=== PATIENT | female | born 1965 | race Caucasian/White ===

== ENCOUNTER 2020-06-10 10:35 | Emergency (ER) | payer SELFPAY ==
[2020-06-10 11:12] VITALS: BP 160/118
--- NOTE | 2020-06-10 11:22 | ER Document Report ---
ED Oral Problem - General Chief Complaint: Toothache Stated Complaint: TOOTH PAIN Time Seen by Provider: 06/10/20 11:14 Primary Care Provider: DERIC LOPEZ MD [Primary Care Provider] - Follow up as needed Information source: Patient TRAVEL OUTSIDE OF THE [place] IN LAST 30 DAYS: No - HPI Patient complains to provider of: Toothache - This 55-year-old female presented to the emergency room with a tooth ache fractured molar which is been ongoing for about 2 weeks. - Related Data Allergies/Adverse Reactions: No Known Allergies Allergy (Unverified 06/10/20 11:17) Past Medical History - General Information source: Patient - Social History Smoking Status: Never Smoker Chew tobacco use (# tins/day): No Frequency of alcohol use: None Drug Abuse: None Family History: None Patient has homicidal ideation: No Pulmonary Medical History: Reports: Hx COPD Neurological Medical History: Reports: Hx Seizures Past Surgical History: Reports: Hx Cholecystectomy, Hx Orthopedic Surgery Review of Systems - Review of Systems Constitutional: No symptoms reported EENT: No symptoms reported Cardiovascular: No symptoms reported Respiratory: No symptoms reported Gastrointestinal: No symptoms reported Genitourinary: No symptoms reported Female Genitourinary: No symptoms reported Musculoskeletal: No symptoms reported Skin: No symptoms reported Hematologic/Lymphatic: No symptoms reported Neurological/Psychological: No symptoms reported Physical Exam - Vital signs Vitals: Temp Pulse Resp BP Pulse Ox 98.5 F 70 18 160/118 H 97 06/10/20 11:10 06/10/20 11:10 06/10/20 11:10 06/10/20 11:10 06/10/20 11:10 Interpretation: Normal - General General appearance: Appears well, Alert - HEENT Head: Normocephalic, Atraumatic Eyes: Normal Pupils: PERRL Mucous membranes: Normal Notes: Patient has severe dentalgia throughout the oral cavity and fractured molar to the upper right side. - Respiratory Respiratory status: No respiratory distress Chest status: Nontender Breath sounds: Normal Chest palpation: Normal - Cardiovascular Rhythm: Regular Heart sounds: Normal auscultation Murmur: No - Abdominal Inspection: Normal Distension: No distension Bowel sounds: Normal Tenderness: Nontender Organomegaly: No organomegaly - Back Back: Normal, Nontender - Extremities General upper extremity: Normal inspection, Nontender, Normal color, Normal ROM, Normal temperature General lower extremity: Normal inspection, Nontender, Normal color, Normal ROM, Normal temperature, Normal weight bearing. No: Min's sign - Neurological Neuro grossly intact: Yes Cognition: Normal Orientation: AAOx4 Sophia Coma Scale Eye Opening: Spontaneous Sophia Coma Scale Verbal: Oriented Sophia Coma Scale Motor: Obeys Commands [place] Coma Scale Total: 15 Speech: Normal Motor strength normal: LUE, RUE, LLE, RLE Sensory: Normal - Psychological Associated symptoms: Normal affect, Normal mood - Skin Skin Temperature: Warm Skin Moisture: Dry Skin Color: Normal Course - Re-evaluation Re-evalutation: 06/10/20 11:21 No trismus no oral floor induration no difficulty swallowing breathing or talking. - Vital Signs Vital signs: Temp Pulse Resp BP Pulse Ox 98.5 F 70 18 160/118 H 97 06/10/20 11:10 06/10/20 11:10 06/10/20 11:10 06/10/20 11:10 06/10/20 11:10 Discharge - Discharge Clinical Impression: Toothache Condition: Good Disposition: HOME, SELF-CARE Instructions: Toothache ([facility]), Penicillin V K ([facility]) Prescriptions: Ibuprofen [Motrin 600 Mg Tablet] 600 mg PO TID #15 tablet Penicillin V Potassium [Penicillin Vk 500 mg Tablet] 500 mg PO BID #20 tablet Referrals: DERIC LOPEZ MD [Primary Care Provider] - Follow up as needed
== END 2020-06-10 11:38 | disposition home or self-care (01) ==
LOC: ER 10:35
DX: K08.9 Disorder of teeth and supporting structures, unspecified (principal); J44.9 Chronic obstructive pulmonary disease, unspecified; Z90.49 Acquired absence of other specified parts of digestive tract
CPT/HCPCS: 99282

== ENCOUNTER 2020-07-22 13:10 | Emergency (ER) | payer SELFPAY ==
[2020-07-22] MEDS ORDERED: HYDROCODONE/ACETAMINOPHEN 5-325 MG TABLET PO ONE (14:35)
--- NOTE | 2020-07-22 15:50 | RADIOLOGY REPORT (SQ) ---
EXAM DESCRIPTION: FOOT LEFT COMPLETE IMAGES COMPLETED DATE/TIME: 07/22/2020 3:40 pm REASON FOR STUDY: injury COMPARISON: None. NUMBER OF VIEWS: Three views. TECHNIQUE: AP, lateral and oblique radiographic images acquired of the left foot. LIMITATIONS: None. FINDINGS: MINERALIZATION: Normal. BONES: Cortical irregularity at the distal aspect of the 2nd and 3rd metatarsals without significant angulation or displacement. No additional fractures identified. No suspicious osseous lesions. JOINTS: No effusions. SOFT TISSUES: No radiopaque foreign body. Mild forefoot soft tissue swelling. OTHER: No other significant finding. IMPRESSION: Cortical irregularity at the distal aspect of the 2nd and 3rd metatarsals compatible wit h fracture. No significant angulation or displacement. TECHNICAL DOCUMENTATION: JOB ID: [id number] 2010 [employer]- All Rights Reserved Reading location - IP/workstation name: [email or web address]
--- NOTE | 2020-07-22 16:09 | ER Document Report ---
HPI - HPI Patient complains to provider of: left foot injury Time Seen by Provider: 07/22/20 14:30 Pain Level: 4 Context: 55-year-old female presents emergency room complaining of left second and third toe pain. Patient states she tripped and fell over a rug injuring her second and third toes earlier today. Did not take any medications for her symptoms. Came in by EMS. Past medical history significant for epilepsy, neuropathy, and COPD. She denies falling and hitting her head. No loss of consciousness. States has been unable to walk secondary to the pain. Associated Symptoms: None Exacerbated by: Movement, Walking Relieved by: Denies Similar symptoms previously: No Recently seen / treated by doctor: No - ROS Systems Reviewed and Negative: Yes All other systems reviewed and negative - NEURO Neurology: DENIES: Weakness - MUSCULOSKELETAL Musculoskeletal: REPORTS: Extremity pain Past Medical History - General Information source: Patient - Social History Smoking Status: Never Smoker Chew tobacco use (# tins/day): No Frequency of alcohol use: None Drug Abuse: None Family History: None Patient has homicidal ideation: No Pulmonary Medical History: Reports: Hx COPD Neurological Medical History: Reports: Hx Seizures Past Surgical History: Reports: Hx Cholecystectomy, Hx Orthopedic Surgery Vertical Provider Document - CONSTITUTIONAL Agree With Documented VS: Yes Exam Limitations: No Limitations General Appearance: Moderate Distress - INFECTION CONTROL TRAVEL OUTSIDE OF THE [place] IN LAST 30 DAYS: No - HEENT HEENT: Atraumatic, Normocephalic - NECK Neck: Normal Inspection, Supple, Thyroid Normal - RESPIRATORY Respiratory: Breath Sounds Normal, No Respiratory Distress, Chest Non-Tender - CARDIOVASCULAR Cardiovascular: Regular Rate, Regular Rhythm, No Murmur - MUSCULOSKELETAL/EXTREMETIES Musculoskeletal/Extremeties: Tender - There is tenderness on palpation to the left second and third toes at the distal aspect. There is no obvious deformity noted. There is no ecchymosis noted. Mild swelling noted. - NEURO Level of Consciousness: Awake, Alert, Appropriate Motor/Sensory: No Motor Deficit, No Sensory Deficit Notes: Positive left pedal pulse. Capillary refill less than 3 seconds. - DERM Integumentary: Warm, Dry, No Rash Course - Re-evaluation Re-evalutation: 07/22/20 16:08 Patient is resting comfortably with decreased pain. Reviewed x-ray results with patient. Aware fractures of the distal aspect of both the second and third metatarsals. No dislocation. Patient was counseled to take medications as prescribed. Outpatient follow-up with orthopedics as discussed. On-call physician was provided. [facility] records were reviewed okay for prescription. Left second and third toes were john taped. Patient was given strict return to the emergency room guidelines. Return for any new or worsening symptoms. All questions were answered. Patient verbalized understanding and agrees with plan of care. 07/22/20 16:54 - Vital Signs Vital signs: Temp Pulse Resp BP Pulse Ox 97.9 F 78 16 142/97 H 97 07/22/20 14:20 07/22/20 13:31 07/22/20 13:31 07/22/20 13:31 07/22/20 13:31 - Diagnostic Test Radiology reviewed: Reports reviewed Procedures - Immobilization Left Toe 3rd digit Time completed: 16:32 Pre-Proc Neuro Vasc Exam: Normal Immobilizer type: Post-op shoe, Other - John tape, Performed by: RN Post-Proc Neuro Vasc Exam: Normal Alignment checked and good: Yes Discharge - Discharge Clinical Impression: Fracture of second metatarsal bone of left foot Qualifiers: Encounter type: initial encounter Fracture type: closed Fracture alignment: nondisplaced Qualified Code(s): S92.325A - Nondisplaced fracture of second metatarsal bone, left foot, initial encounter for closed fracture Fracture of third metatarsal bone of left foot Qualifiers: Encounter type: initial encounter Fracture type: closed Fracture alignment: nondisplaced Qualified Code(s): S92.335A - Nondisplaced fracture of third metatarsal bone, left foot, initial encounter for closed fracture Condition: Stable Disposition: HOME, SELF-CARE Instructions: John Taping (toes) ([facility]), Fractured Toe ([facility]) Additional Instructions: Rest, ice, elevate when we get a car Prescriptions: Hydrocodone/Acetaminophen [[place] 5-325 mg Tablet] 1 tab PO Q6HP PRN #12 tablet PRN Reason: For Pain Forms: Return to Work
[2020-07-22 16:36] VITALS: BP 136/86
== END 2020-07-22 16:36 | disposition home or self-care (01) ==
LOC: ER 13:10
DX: S92.325A Nondisplaced fracture of second metatarsal bone, left foot, initial encounter for closed fracture (principal); S92.335A Nondisplaced fracture of third metatarsal bone, left foot, initial encounter for closed fracture; W01.0XXA Fall on same level from slipping, tripping and stumbling without subsequent striking against object, initial encounter; J44.9 Chronic obstructive pulmonary disease, unspecified
CPT/HCPCS: 99283

== ENCOUNTER 2020-08-02 13:45 | Emergency (ER) | payer OTHER ==
[2020-08-02] MEDS ORDERED: DEXAMETHASONE SOD PHOS INJ 10 MG/1 ML VIAL IM ONE (15:49)
[2020-08-02] MEDS ORDERED: KETOROLAC TROMETHAMINE 60 MG/2 ML SDV IM ONE (15:49)
--- NOTE | 2020-08-02 15:56 | ER Document Report ---
HPI - HPI Time Seen by Provider: 08/02/20 15:45 Pain Level: 4 Context: Patient is a 55-year-old female who presents to the emergency department with a chief complaint of right shoulder pain. Patient states that she was vacuuming today and when she went to go vacuum she felt her shoulder pop out of her socket. Patient has had history of shoulder surgery before. She has been having problems with her shoulder for years. She does not feel her shoulder is out of place, but states that it hurts. She has not taken anything for the pain. Patient has a history of hypertension, seizures, asthma, and COPD. Patient is right handed. - ROS Systems Reviewed and Negative: Yes All other systems reviewed and negative - CONSTITUTIONAL Constitutional: DENIES: Fever, Chills - EENT EENT: DENIES: Sore Throat, Ear Pain - MUSCULOSKELETAL Musculoskeletal: REPORTS: Extremity pain - Right shoulder. DENIES: Neck Pain, Swelling - DERM Skin Color: Normal Skin Problems: None Past Medical History - General Information source: Patient - Social History Smoking Status: Never Smoker Chew tobacco use (# tins/day): No Frequency of alcohol use: None Drug Abuse: None Family History: None Pulmonary Medical History: Reports: Hx COPD Neurological Medical History: Reports: Hx Seizures Past Surgical History: Reports: Hx Cholecystectomy, Hx Orthopedic Surgery Vertical Provider Document - CONSTITUTIONAL Agree With Documented VS: Yes Exam Limitations: No Limitations General Appearance: No Apparent Distress - INFECTION CONTROL TRAVEL OUTSIDE OF THE [place] IN LAST 30 DAYS: No - HEENT HEENT: Atraumatic, Normocephalic, PERRLA - NECK Neck: Normal Inspection - RESPIRATORY Respiratory: Breath Sounds Normal, No Respiratory Distress - CARDIOVASCULAR Cardiovascular: Regular Rate, Regular Rhythm Pulses: Normal: Radial - MUSCULOSKELETAL/EXTREMETIES Musculoskeletal/Extremeties: Tender - right shoulder., No Edema. negative: FROM - decreased ROM to R shoulder - NEURO Level of Consciousness: Awake, Alert, Appropriate Motor/Sensory: No Sensory Deficit - DERM Integumentary: Warm, Dry, No Rash Course - Re-evaluation Re-evalutation: 08/02/20 16:43 Shoulder x-ray shows a stable prosthetic. Capillary refill less than 3 seconds. Radial pulse 2+. No vascular compromise noted. Will place the patient on diclofenac. She will follow-up with orthopedics. Follow-up precautions were given. Verbal discharge instructions were given to the patient. They verbalized understanding. They are stable for discharge. - Vital Signs Vital signs: Temp Pulse Resp BP Pulse Ox 98.0 F 58 L 20 154/104 H 98 08/02/20 15:46 08/02/20 15:06 08/02/20 15:06 08/02/20 15:06 08/02/20 15:06 Procedures - Immobilization Right Shoulder Pre-Proc Neuro Vasc Exam: Normal Immobilizer type: Sling Performed by: RN Post-Proc Neuro Vasc Exam: Normal, Unchanged from pre-exam Alignment checked and good: Yes Discharge - Discharge Clinical Impression: Right shoulder pain Qualifiers: Chronicity: acute Qualified Code(s): M25.511 - Pain in right shoulder Condition: Stable Disposition: HOME, SELF-CARE Additional Instructions: You were seen today in the emergency department for shoulder pain. Your x-ray appeared normal. Your joint is in place. Please use a sling. Please rest and apply ice as much as possible. Take diclofenac as needed for pain relief. Follow-up with orthopedics in regards to this visit. Prescriptions: Diclofenac Sodium [Diclofenac Sodium ER] 100 mg PO DAILY #12 tab.er.24h Referrals: KELVIN RAPHAEL MD [ACTIVE STAFF] - Follow up in 1 week CAL KIM JR, DO [ACTIVE PROVISIONAL STAFF] - Follow up in 1 week GISSELLE GAMINO MD [ACTIVE STAFF] - Follow up in 1 week
--- NOTE | 2020-08-02 16:23 | RADIOLOGY REPORT (SQ) ---
EXAM DESCRIPTION: SHOULDER RIGHT 2 OR MORE VIEWS IMAGES COMPLETED DATE/TIME: 08/02/2020 4:12 pm REASON FOR STUDY: right shoulder pain COMPARISON: None. NUMBER OF VIEWS: Three views. TECHNIQUE: Internal rotation, external rotation, and Y view images acquired of the right shoulder. LIMITATIONS: None. FINDINGS: MINERALIZATION: Normal. BONES: Intact shoulder prosthesis. No acute fracture. No worrisome bone lesions. JOINTS: No dislocation. VISUALIZED LUNGS AND RIBS: No pneumothorax. No rib fracture. SOFT TISSUES: No radiopaque foreign body. OTHER: No other significant finding. IMPRESSION: INTACT SHOULDER PROSTHESIS. NO ACUTE OR OTHER SIGNIFICANT FINDINGS. TECHNICAL DOCUMENTATION: JOB ID: [id number] 2010 [employer]- All Rights Reserved Reading location - IP/workstation name: [email or web address]
[2020-08-02 16:55] VITALS: BP 173/103
== END 2020-08-02 16:53 | disposition home or self-care (01) ==
LOC: ER 13:45
DX: M25.511 Pain in right shoulder (principal); I10 Essential (primary) hypertension; J44.9 Chronic obstructive pulmonary disease, unspecified; Z96.611 Presence of right artificial shoulder joint
CPT/HCPCS: 99284; 96372; 82962; 73030; J1885; J1100

== ENCOUNTER 2020-08-11 08:25 | Emergency (ER) | payer OTHER ==
[2020-08-11 08:31] VITALS: BP 143/97
[2020-08-11] MEDS ORDERED: LORAZEPAM 1 MG TABLET PO ONE (08:58)
--- NOTE | 2020-08-11 09:00 | ER Document Report ---
ED General - General Chief Complaint: Seizure Stated Complaint: SEIZURES Time Seen by Provider: 08/11/20 08:43 Primary Care Provider: NIECY DONAHUE NP [Primary Care Provider] - Follow up as needed Notes: 55 lady with hypertension neck arthritis neuropathy and seizure disorder for multiple TBI's presents with increasing seizure frequency. Not had one today. Her a month ago she moved from [place] has been to [facility] once is not on her Keppra or Dilantin anymore stopped her BP meds and gabapentin. She has been seen in the primary care clinic and they called her in [facility] last night after she called to say that her seizures are increasing in frequency2 yesterday, 2 the day before. She took 1 dose and came here. She denies chest pain. She does complain of arm tingling similar to past neuropathy since being off gabapentin. TRAVEL OUTSIDE OF THE [place] IN LAST 30 DAYS: No - Related Data Allergies/Adverse Reactions: No Known Allergies Allergy (Verified 08/11/20 08:45) Past Medical History - General Information source: Patient - Social History Smoking Status: Unknown if Ever Smoked Family History: None Pulmonary Medical History: Reports: Hx COPD Neurological Medical History: Reports: Hx Seizures Past Surgical History: Reports: Hx Cholecystectomy, Hx Orthopedic Surgery Review of Systems - Review of Systems Notes: REVIEW OF SYSTEMS GEN: Denies fever, chills, weight loss ENT: Denies sore throat, nasal discharge, ear pain EYES: Denies blurry vision, eye pain, discharge CV: Denies chest pain, palpitations, edema RESP: Denies cough, shortness of breath, wheezing GI: Denies abdominal pain, nausea, vomiting, diarrhea MSK: Denies joint pain/swelling, edema, SKIN: Denies rash, skin lesions LYMPH: Denies swollen glands/lymph nodes NEURO: Seizure tingling PSYCH: Denies depression, suicidal or homicidal ideation PHYSICAL EXAMINATION General: No acute distress, well-nourished Head: Atraumatic, normocephalic ENT: Mouth normal, oropharynx moist, no exudates or tonsillar enlargement Eyes: Conjunctiva normal, pupils equal, lids normal Neck: No JVD, supple, no guarding CVS: Normal rate, regular rhythm, no murmurs Resp: No resp distress, equal and normal breath sounds bilaterally GI: Nondistended, soft, no tenderness to palpation, no rebound or guarding Ext: No deformities, no edema, normal range of motion in upper and lower ext Back: No CVA or midline TTP Skin: No rash, warm Lymphatic: No lymphadeopathy noted Neuro: Awake, alert. Face symmetric. GCS 15. Physical Exam - Vital signs Vitals: Temp Pulse Resp BP Pulse Ox 98.0 F 65 18 143/97 H 95 08/11/20 08:30 08/11/20 08:30 08/11/20 08:30 08/11/20 08:30 08/11/20 08:30 Course - Re-evaluation Re-evalutation: 08/11/20 09:14 Breakthrough seizure in the setting of noncompliance. Mild hypertension not severe. Bilateral hand tingling secondary to neuropathy off gabapentin. Doubt acute issue, need for labs imaging etc. We will refill all meds give Ativan here so she wants these and have her follow- up with primary care. I have discussed with the patient there likely diagnosis, aftercare plan, fol low-up plans and my usual and customary return precautions. They verbalized understanding of this. - Vital Signs Vital signs: Temp Pulse Resp BP Pulse Ox 98.0 F 65 18 143/97 H 95 08/11/20 08:30 08/11/20 08:30 08/11/20 08:30 08/11/20 08:30 08/11/20 08:30 Discharge - Discharge Clinical Impression: Breakthrough seizure Condition: Good Disposition: HOME, SELF-CARE Instructions: Seizure, Known Epileptic ([facility]) Prescriptions: Gabapentin 300 mg PO TID #90 capsule Levetiracetam [Keppra] 1,000 mg PO BID #60 tablet Lisinopril 20 mg PO DAILY #30 tablet Referrals: NIECY DONAHUE NP [Primary Care Provider] - Follow up as needed
== END 2020-08-11 09:28 | disposition home or self-care (01) ==
LOC: ER 08:25
DX: G40.909 Epilepsy, unspecified, not intractable, without status epilepticus (principal); J44.9 Chronic obstructive pulmonary disease, unspecified; I10 Essential (primary) hypertension; Z87.820 Personal history of traumatic brain injury; Z90.49 Acquired absence of other specified parts of digestive tract; Z91.14 Patient's other noncompliance with medication regimen
CPT/HCPCS: 99283

== ENCOUNTER 2020-08-15 06:33 | Emergency (ER) | payer OTHER ==
[2020-08-15] MEDS ORDERED: NORMAL SALINE 500 ML IV ONE (09:10)
[2020-08-15] MEDS ORDERED: LEVETIRACETAM 1000 MG/NACL-ISO 1,000 MG/100 ML RTUPB IV ONE (09:11)
[2020-08-15] MEDS ORDERED: LORAZEPAM INJ 2 MG/1 ML VIAL IV ONE (09:12)
[2020-08-15 09:43] LABS: HEMATOCRIT 40.8 % (36.0-47.0); MEAN CORPUSCULAR HEMOGLOBIN 29.5 pg (27.0-33.4); MEAN CORPUSCULAR HGB CONC 34.3 g/dL (32.0-36.0); MEAN CORPUSCULAR VOLUME 86 fl (80-97); RED BLOOD COUNT 4.74 10^6/uL (3.72-5.28); RED CELL DISTRIBUTION WIDTH 13.1 % (11.5-14.0); WHITE BLOOD COUNT 8.6 10^3/uL (4.0-10.5)
[2020-08-15 09:51] LABS: ALBUMIN 4.1 g/dL (3.5-5.0); ALKALINE PHOSPHATASE 85 U/L (38-126); ANION GAP 8 (5-19); ASPARTATE AMINO TRANSFERASE 25 U/L (14-36); BILIRUBIN,DIRECT 0.4 mg/dL (0.0-0.4); BILIRUBIN,TOTAL 0.8 mg/dL (0.2-1.3); BLOOD UREA NITROGEN 13 mg/dL (7-20); CALCIUM 9.6 mg/dL (8.4-10.2); CARBON DIOXIDE 27 mmol/L (22-30); CHLORIDE 104 mmol/L (98-107); CREATINE KINASE 51 U/L (30-135); GLUCOSE 98 mg/dL (75-110); POTASSIUM 4.7 mmol/L (3.6-5.0); TOTAL PROTEIN 6.7 g/dL (6.3-8.2)
[2020-08-15 10:13] LABS: ABSOLUTE LYMPHOCYTES# (MANUAL) 3.5 10^3/uL (0.5-4.7); ABSOLUTE MONOCYTES # (MANUAL) 0.7 10^3/uL (0.1-1.4); BASOPHILS % (MANUAL) 1 % (0-2); EOSINOPHILS % (MANUAL) 3 % (0-6); LYMPHOCYTES % (MANUAL) 37 % (13-45); MONOCYTES % (MANUAL) 8 % (3-13); SEGMENTED NEUTROPHILS % (MAN) 47 % (42-78); TOTAL CELLS COUNTED 100
[2020-08-15 10:14] LABS: PLATELET CLUMPS PRESENT; PLATELET COMMENT ADEQUATE
[2020-08-15 10:16] LABS: RBC MORPHOLOGY COMMENT NORMO-CYTIC/CHROMIC
[2020-08-15 10:17] LABS: PLATELET COUNT 268 10^3/uL (150-450)
--- NOTE | 2020-08-15 10:42 | RADIOLOGY REPORT (SQ) ---
EXAM DESCRIPTION: CT HEAD WITHOUT IMAGES COMPLETED DATE/TIME: 08/15/2020 10:13 am REASON FOR STUDY: seizure COMPARISON: None. TECHNIQUE: Axial images acquired through the brain without intravenous contrast. Images reviewed wi th bone, brain and subdural windows. Additional sagittal and coronal reconstructions were generated. Images stored on PACS. All CT scanners at this facility use dose modulation, iterative reconstruction, and/or weight based d osing when appropriate to reduce radiation dose to as low as reasonably achievable (ALARA). [facility]: Dose Right [facility]: CareDose [facility]: Dose Right [facility]: Teradose 4D [facility]: ArthaYantra RADIATION DOSE: CT Rad equipment meets quality standard of care and radiation dose reduction techniq ues were employed. CTDIvol: 53.2 mGy. DLP: 1017 mGy-cm. mGy. LIMITATIONS: None. FINDINGS: VENTRICLES: Normal size and contour. CEREBRUM: No masses. No hemorrhage. No midline shift. No evidence for acute infarction. Normal gra y/white matter differentiation. No areas of low density in the white matter. CEREBELLUM: No masses. No hemorrhage. No alteration of density. No evidence for acute infarction. EXTRAAXIAL SPACES: No fluid collections. No masses. ORBITS AND GLOBE: No intra- or extraconal masses. Normal contour of globe without masses. CALVARIUM: No fracture. PARANASAL SINUSES: No fluid or mucosal thickening. SOFT TISSUES: No mass or hematoma. OTHER: No other significant finding. IMPRESSION: NO ACUTE INTRACRANIAL IMAGING FINDINGS. EVIDENCE OF ACUTE STROKE: NO. COMMENT: Quality ID # [id number]: Final reports with documentation of one or more dose reduction techniques (e.g., Automated exposure control, adjustment of the mA and/or kV according to patient size, use of iterative reconstruction technique) TECHNICAL DOCUMENTATION: JOB ID: [id number] 2010 [email or web address]- All Rights Reserved Reading location - IP/workstation name: [email or web address]
--- NOTE | 2020-08-15 10:43 | RADIOLOGY REPORT (SQ) ---
EXAM DESCRIPTION: CHEST SINGLE VIEW IMAGES COMPLETED DATE/TIME: 08/15/2020 10:33 am REASON FOR STUDY: seizure COMPARISON: None. EXAM PARAMETERS: NUMBER OF VIEWS: One view. TECHNIQUE: Single frontal radiographic view of the chest acquired. RADIATION DOSE: NA LIMITATIONS: None. FINDINGS: LUNGS AND PLEURA: No opacities, masses or pneumothorax. No pleural effusion. MEDIASTINUM AND HILAR STRUCTURES: No masses. Contour normal. HEART AND VASCULAR STRUCTURES: Heart normal in size. Normal vasculature. BONES: No acute findings. Right humeral hardware. HARDWARE: Circular 4 mm density overlies midline at thoracic inlet, presumably external to the patien t. Partially visualized right humeral hardware. OTHER: Obesity. IMPRESSION: NO ACUTE RADIOGRAPHIC FINDING IN THE CHEST. TECHNICAL DOCUMENTATION: JOB ID: [id number] 2010 [employer]- All Rights Reserved Reading location - IP/workstation name: [email or web address]
--- NOTE | 2020-08-15 10:45 | RADIOLOGY REPORT (SQ) ---
EXAM DESCRIPTION: L SPINE WHOLE IMAGES COMPLETED DATE/TIME: 08/15/2020 10:33 am REASON FOR STUDY: low back pain COMPARISON: None. NUMBER OF VIEWS: Five views including obliques. TECHNIQUE: AP, lateral, oblique, and sacral radiographic images acquired of the lumbar spine. LIMITATIONS: None. FINDINGS: MINERALIZATION: Normal. SEGMENTATION: 5 [id number] lumbar vertebral bodies. ALIGNMENT: Grade 2 anterolisthesis of L5 on S1. VERTEBRAE: Maintained height. No fracture or worrisome bone lesion. DISCS: Mild disc height loss greatest at L4-5 and L5-S1. POSTERIOR ELEMENTS: No fracture. Lower lumbar facet arthropathy. Likely bilateral L5 pars defects. HARDWARE: None in the spine. PARASPINAL SOFT TISSUES: 9 mm calcific density overlies were right abdomen, likely renal stone. Scat tered pelvic phleboliths. PELVIS: Intact as visualized. No fractures or worrisome bone lesions. SI joints intact. OTHER: No other significant finding. IMPRESSION: 1. Grade 2 anterolisthesis of L5 on S1 with likely bilateral pars defects and associate d degenerative change. 2. Lower lumbar spondylosis without other evidence of acute bony abnormality. 3. Likely 9 mm right renal stone. TECHNICAL DOCUMENTATION: JOB ID: [id number] 2010 [employer]- All Rights Reserved Reading location - IP/workstation name: [email or web address]
--- NOTE | 2020-08-15 14:00 | ER Document Report ---
Entered by MARZENA COOPER SCRIBE 08/15/20 08 Acting as scribe for:SYDNEY HILLIARD MD ED General - General Chief Complaint: Probable Seizure Stated Complaint: DISORIENTED,MUSCLE PAIN,POSSIBLE SEIZURES Time Seen by Provider: 08/15/20 07:53 Primary Care Provider: NIECY DONAHUE NP [Primary Care Provider] - Follow up as needed Information source: Patient Notes: This 55 year old female patient presents to the emergency department today with complaints of increased frequency of seizures. Patient states she visited the ED x4 days ago for increased seizures and her Keppra was increased from 500 mg to 1000 mg x2 daily. Patient states she is still experiencing more seizures than normal and believes the reason for this is from a mechanical fall x2 weeks ago. Patient states her seizures last x3-4 min and include shaking and urinating/defecating on herself. Denies biting her tongue. Patient reports a nosebleed this morning and abnormal vision. Patient reports some back pain. TRAVEL OUTSIDE OF THE [place] IN LAST 30 DAYS: No - Related Data Allergies/Adverse Reactions: No Known Allergies Allergy (Verified 08/11/20 08:45) Past Medical History - General Information source: Patient - Social History Smoking Status: Never Smoker Cigarette use (# per day): No Family History: None - Past Medical History Cardiac Medical History: Reports: Hx Hypertension Pulmonary Medical History: Reports: Hx COPD Neurological Medical History: Reports: Hx Seizures Past Surgical History: Reports: Hx Cholecystectomy, Hx Hysterectomy, Hx Orthopedic Surgery Review of Systems - Review of Systems Constitutional: No symptoms reported EENT: See HPI, Other - vision changes Cardiovascular: No symptoms reported Respiratory: No symptoms reported Gastrointestinal: See HPI Genitourinary: See HPI Female Genitourinary: No symptoms reported Musculoskeletal: See HPI, Back pain Skin: No symptoms reported Hematologic/Lymphatic: No symptoms reported Neurological/Psychological: See HPI, Seizure -: Yes All other systems reviewed and negative Physical Exam - Vital signs Vitals: Temp Pulse Resp BP Pulse Ox 97.9 F 74 16 138/90 H 97 08/15/20 06:38 08/15/20 06:38 08/15/20 06:38 08/15/20 06:38 08/15/20 06:38 - General General appearance: Appears well, Alert - HEENT Head: Normocephalic, Atraumatic Eyes: Normal Pupils: PERRL Ears: Normal External canal: Normal Tympanic membrane: Normal Mouth/Lips: Normal - Respiratory Respiratory status: No respiratory distress Chest status: Nontender Breath sounds: Normal Chest palpation: Normal - Cardiovascular Rhythm: Regular Heart sounds: Normal auscultation Murmur: No - Abdominal Inspection: Normal Distension: No distension Bowel sounds: Normal Tenderness: Nontender - Back Notes: Tenderness with palpation to the midline lower lumbar spine. No wounds or ecchymosis. - Extremities General upper extremity: Normal inspection, Normal ROM. No: Edema General lower extremity: Normal inspection, Normal ROM. 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 No: Pronator drift Sensory: Normal - Psychological Associated symptoms: Normal affect, Normal mood - Skin Skin Temperature: Warm Skin Moisture: Dry Skin Color: Normal Course - Re-evaluation Re-evalutation: 08/15/20 13:39 Patient completely oriented not showing any signs of distress there is been no seizure activity while in the department. Patient has been worked up for cardiac seizure activity and low back pain. Patient has medications to take for seizures she also has gabapentin and Flexeril to take for her low back pain and spasms. Therefore there is no new prescriptions to prescribed today. - Vital Signs Vital signs: Temp Pulse Resp BP Pulse Ox 97.8 F 66 14 144/79 H 97 08/15/20 12:17 08/15/20 12:17 08/15/20 12:17 08/15/20 12:17 08/15/20 12:17 08/15/20 13:40 Vital signs stable - Laboratory Result Diagrams: 08/15/20 08:46 08/15/20 08:46 Laboratory results interpreted by me: 08/15/20 08:46 Creatinine 0.51 L [facility] essentially within normal limits troponin x2 less than the acute myocardial infarct level is. 08/15/20 13:41 A Keppra level was added to detect if patient has been taking her medications. - Diagnostic Test Radiology reviewed: Image reviewed, Reports reviewed Radiology results interpreted by me: 08/15/20 13:[address] 08/15/20 09:06 IMPRESSION: NO ACUTE INTRACRANIAL IMAGING FINDINGS. EVIDENCE OF ACUTE STROKE: NO. Chest X-Ray 08/15/20 09:09 IMPRESSION: NO ACUTE RADIOGRAPHIC FINDING IN THE CHEST. Lumbar Spine X-Ray 08/15/20 09:13 IMPRESSION: 1. Grade 2 anterolisthesis of L5 on S1 with likely bilateral pars defects and associated degenerative change. 2. Lower lumbar spondylosis without other evidence of acute bony abnormality. 3. Likely 9 mm right renal stone. Patient had a head CT due to her seizure activity and there was no acute intracranial findings no evidence for stroke. Patient's chest x-ray showed no acute findings. And patient's lumbar spine shows grade 2 anterior anterior listhesis of L5 on S1 congenital bilateral pars defects and associated degenerative changes. No evidence of any acute fracture lower lumbar spondylosis also noted. An incidental 9 mm right renal stone. - EKG Interpretation by Me Additional EKG results interpreted by me: 08/15/20 13:56 Twelve-lead EKG shows normal sinus rhythm rate of [address]-T wave changes. Patient has a left axis deviation. Intervals UT QRS and QT intervals within normal range. No acute evidence for any CO. Discharge - Discharge Clinical Impression: Seizure disorder, Chest pain, Low back pain, Suspected COVID-19 virus infection Condition: Stable Disposition: HOME, SELF-CARE Instructions: COVID-19 Guidance for Persons Under Investigation Additional Instructions: Low Back Pain Three out of every four people will have an episode of disabling back pain during their lifetime. Most commonly the pain is due to straining of the muscl es and ligaments in the low back. Usual treatment includes: (1) Rest on a firm surface. Avoid lying on your stomach. (2) Ice pack the painful area. After a few days, gentle heat may be used intermittently to relax the area, or ice packs can be continued. (3) Medication may be needed -- muscle relaxers and antiinflammatory medicines are commonly used. (4) As the back improves, exercises are prescribed to strengthen the back and abdominal muscles. Your doctor will advise you on the proper care for your back at each stage in your recovery. You may be better in a few days -- or healing may take several weeks. If new symptoms of a "herniated disc" (radiation of pain, numbness, or tingling down the back of the leg or weakness in the leg) occur, you should be re-examined. Further testing may be necessary.Muscle Relaxers Muscle relaxing medications are usually prescribed for acute muscle spasm or injury to the neck and back. They are often combined with antiinflammatory pain medication for increased relief. You may stop the muscle relaxer when the pain and stiffness have improved. Start the medication again if spasms recur. Muscle relaxers may cause drowsiness, especially with the first dose. Do not operate machinery or drive while under the effects of the medication. Most muscle relaxers last up to 24 hours. Do not combine the medication with alcohol.Muscle Strain You have strained a muscle -- torn the fibers within the muscle. This often occurs with strenuous exertion, or during an injury that suddenly stretches the muscle. The seriousness of a strain varies. Some strains heal within days, others cause problems for months. X-rays cannot show a muscle strain. X-rays are taken only if symptoms suggest that a fracture could be present. The usual treatment of a muscle strain is rest and ice packs. Sometimes, a sling, splint, or crutches may be necessary to rest the muscle. The muscle can be used again once pain subsides. Severe strains require a special exercise and stretching program to prevent permanent stiffness and disability. Your doctor will advise you if this will be necessary. Call the doctor immediately if pain or swelling becomes severe, or if numbness or discoloration develop. You have prescriptions for gabapentin Keppra, Flexeril, to take for your conditions of seizure disorder and neuropathy and back pain. And muscle spasms. No new prescriptions are written today. Referrals: NIECY DONAHUE NP [Primary Care Provider] - Follow up as needed I personally performed the services described in the documentation, reviewed and edited the documentation which was dictated to the scribe in my presence, and it accurately records my words and actions.
[2020-08-15 15:05] VITALS: BP 147/67
--- NOTE | 2020-08-15 17:26 | EKG REPORT ---
SEVERITY:- NORMAL ECG - SINUS RHYTHM : Confirmed by: Tremayne Rey 15-Aug-2020 17:25:45
== END 2020-08-15 14:30 | disposition home or self-care (01) ==
LOC: ER 06:33
DX: G40.909 Epilepsy, unspecified, not intractable, without status epilepticus (principal); M47.816 Spondylosis without myelopathy or radiculopathy, lumbar region; N20.0 Calculus of kidney; R04.0 Epistaxis; H53.9 Unspecified visual disturbance; M54.5 Low back pain; R25.2 Cramp and spasm; R07.9 Chest pain, unspecified; I10 Essential (primary) hypertension; J44.9 Chronic obstructive pulmonary disease, unspecified; Z79.899 Other long term (current) drug therapy; Z20.828 Contact with and (suspected) exposure to other viral communicable diseases
CPT/HCPCS: 93005; 99285; 96361; 96374; 96375; 36415; 87040; 80177; 82550; 83605; 85025; 87635; 80053; 84484; 71045; 72110; 70450; 93010; J2060; J7040; J1953; C9803

== ENCOUNTER → 2020-09-14 | Outpatient (CLI) | payer OTHER ==
[2020-09-14 13:54] LABS: ABSOLUTE EOSINOPHILS # (AUTO) 0.2 10^3/uL (0.0-0.6); ABSOLUTE LYMPHOCYTES (AUTO) 1.7 10^3/uL (0.5-4.7); ABSOLUTE MONOCYTES (AUTO) 0.4 10^3/uL (0.1-1.4); ABSOLUTE NEUT (AUTO) 3.4 10^3/uL (1.7-8.2); BASOPHILS % (AUTO) 0.7 % (0-2); EOSINOPHILS % (AUTO) 4.3 % (0-6); HEMATOCRIT 39.3 % (36.0-47.0); HEMOGLOBIN 13.8 g/dL (12.0-15.5); LYMPHOCYTES % (AUTO) 29.2 % (13-45); MEAN CORPUSCULAR HEMOGLOBIN 29.3 pg (27.0-33.4); MEAN CORPUSCULAR HGB CONC 35.2 g/dL (32.0-36.0); MEAN CORPUSCULAR VOLUME 83 fl (80-97); MONOCYTES % (AUTO) 7.3 % (3-13); PLATELET COUNT 283 10^3/uL (150-450); RED BLOOD COUNT 4.71 10^6/uL (3.72-5.28); RED CELL DISTRIBUTION WIDTH 12.7 % (11.5-14.0); SEGMENTED NEUTROPHILS % (AUTO) 58.5 % (42-78); TOTAL CELLS COUNTED % (AUTO) 100 %; WHITE BLOOD COUNT 5.7 10^3/uL (4.0-10.5)
[2020-09-14 14:02] LABS: APPEARANCE,URINE SLIGHTLY-CLOUDY; BILIRUBIN,URINE NEGATIVE (NEGATIVE); COLOR,URINE YELLOW; GLUCOSE, URINE NEGATIVE (NEGATIVE); KETONES,URINE NEGATIVE (NEGATIVE); LEUKOCYTE ESTERASE,URINE SMALL (NEGATIVE); NITRITE,URINE NEGATIVE (NEGATIVE); PROTEIN,URINE NEGATIVE (NEGATIVE); URINE SPECIFIC GRAVITY 1.019; UROBILINOGEN,URINE NEGATIVE mg/dL (<2.0)
[2020-09-14 14:12] LABS: ALBUMIN 4.1 g/dL (3.5-5.0); ALKALINE PHOSPHATASE 102 U/L (38-126); ANION GAP 10 (5-19); ASPARTATE AMINO TRANSFERASE 18 U/L (14-36); BILIRUBIN,DIRECT 0.3 mg/dL (0.0-0.4); BILIRUBIN,TOTAL 0.7 mg/dL (0.2-1.3); BLOOD UREA NITROGEN 17 mg/dL (7-20); CALCIUM 9.5 mg/dL (8.4-10.2); CARBON DIOXIDE 27 mmol/L (22-30); CHLORIDE 103 mmol/L (98-107); CHOLESTEROL 174.59 mg/dL (0-200); GLUCOSE 82 mg/dL (75-110); POTASSIUM 4.6 mmol/L (3.6-5.0); TRIGLYCERIDES 76 mg/dL (<150)
[2020-09-14 14:23] LABS: DIRECT LDL 108 mg/dL (<100)
== END ==
LOC: CCC 11:08
PROVIDERS: ATTEND Family Medicine
DX: Z13.9 Encounter for screening, unspecified (principal)
CPT/HCPCS: 36415; 80053; 80061; 81001; 83036; 84443; 85025

== ENCOUNTER 2020-09-26 07:10 | Emergency (ER) | payer MEDICAID, OTHER ==
[2020-09-26 08:31] LABS: ABSOLUTE EOSINOPHILS # (AUTO) 0.3 10^3/uL (0.0-0.6); ABSOLUTE LYMPHOCYTES (AUTO) 1.7 10^3/uL (0.5-4.7); ABSOLUTE MONOCYTES (AUTO) 0.5 10^3/uL (0.1-1.4); ABSOLUTE NEUT (AUTO) 3.1 10^3/uL (1.7-8.2); BASOPHILS % (AUTO) 0.6 % (0-2); EOSINOPHILS % (AUTO) 4.9 % (0-6); HEMATOCRIT 39.8 % (36.0-47.0); HEMOGLOBIN 13.8 g/dL (12.0-15.5); LYMPHOCYTES % (AUTO) 29.8 % (13-45); MEAN CORPUSCULAR HEMOGLOBIN 28.9 pg (27.0-33.4); MEAN CORPUSCULAR HGB CONC 34.7 g/dL (32.0-36.0); MEAN CORPUSCULAR VOLUME 84 fl (80-97); MONOCYTES % (AUTO) 8.7 % (3-13); PLATELET COUNT 319 10^3/uL (150-450); RED BLOOD COUNT 4.76 10^6/uL (3.72-5.28); RED CELL DISTRIBUTION WIDTH 12.6 % (11.5-14.0); TOTAL CELLS COUNTED % (AUTO) 100 %; WHITE BLOOD COUNT 5.6 10^3/uL (4.0-10.5)
--- NOTE | 2020-09-26 08:39 | RADIOLOGY REPORT (SQ) ---
EXAM DESCRIPTION: CHEST 2 VIEWS IMAGES COMPLETED DATE/TIME: 09/26/2020 8:25 am REASON FOR STUDY: CHEST PAIN COMPARISON: 08/15/2020 EXAM PARAMETERS: NUMBER OF VIEWS: two views TECHNIQUE: Digital Frontal and Lateral radiographic views of the chest acquired. RADIATION DOSE: NA LIMITATIONS: none FINDINGS: LUNGS AND PLEURA: No consolidation. No pneumothorax or effusion. Mild prominence of inte rstitial markings which is unchanged. MEDIASTINUM AND HILAR STRUCTURES: No masses or contour abnormalities. HEART AND VASCULAR STRUCTURES: Heart size is stable in appearance with central vascular prominence. BONES: No acute findings. HARDWARE: None in the chest. OTHER: Radiopaque foreign body overlying the upper mediastinum is unchanged. IMPRESSION: Mild cardiomegaly. Mild central vascular prominence. Findings are accentuated by low l kev volumes. No overt failure. TECHNICAL DOCUMENTATION: JOB ID: [id number] [employer]- All Rights Reserved Reading location - IP/workstation name: [email or web address]
[2020-09-26] MEDS ORDERED: IPRATROPIUM/ALBUTEROL 0.5-2.5 MG/3 ML AMPUL NEB ONE ×2 (08:46→10:38)
--- NOTE | 2020-09-26 08:46 | ER Document Report ---
ED Cardiac - General Chief Complaint: Chest Pain Stated Complaint: CHEST PAIN Time Seen by Provider: 09/26/20 08:27 Primary Care Provider: [facility],KATHY [NO LOCAL MD] - Follow up in 3-5 days Notes: Patient is a 55-year-old female who presents emergency department with a chief complaint of chest pain. Patient states that her symptoms started on Saturday. She called EMS on and they evaluated her. They stated that everything was "normal." They told her that she was having anxiety. States that she saw her primary care provider on Saturday, but there were no medication changes. She has a history of diabetes, seizures, COPD (from asthma) and hypertension. Denies any history of smoking. TRAVEL OUTSIDE OF THE [place] IN LAST 30 DAYS: No - Related Data Allergies/Adverse Reactions: No Known Allergies Allergy (Verified 08/11/20 08:45) Home Medications: hydroxyzine,gabapentin, levetiracetam, diabetes, lisinopril Past Medical History - Social History Smoking Status: Never Smoker Chew tobacco use (# tins/day): No Frequency of alcohol use: None Drug Abuse: None Family History: None Patient has homicidal ideation: No - Past Medical History Cardiac Medical History: Reports: Hx Hypertension Pulmonary Medical History: Reports: Hx COPD Neurological Medical History: Reports: Hx Seizures Past Surgical History: Reports: Hx Cholecystectomy, Hx Hysterectomy, Hx Orthopedic Surgery Review of Systems - Review of Systems Notes: REVIEW OF SYSTEMS: CONSTITUTIONAL : Denies recent illness. Denies recent unintentional weight loss. Denies fever, chills, or sweats. EENT: Denies eye, ear, throat, or mouth pain, discharge, or symptoms. Denies nasal or sinus congestion. CARDIOVASCULAR: Denies chest pain. RESPIRATORY: Denies shortness of breath, cough, congestion, difficulty breathing, or wheezing. GASTROINTESTINAL: Denies nausea, vomiting, and diarrhea. Denies abdominal pain. Denies constipation. GENITOURINARY: Denies difficulty urinating, burning, blood in urine, urgency or frequency. MUSCULOSKELETAL: Denies neck and back pain. Denies joint pain or swelling. SKIN: Denies rash, itchiness, or lesions HEMATOLOGIC : Denies easy bruising or bleeding. LYMPHATIC: Denies swollen, painful, enlarged glands. NEUROLOGICAL: Denies no numbness or tingling denies weakness. Denies headache. Denies altered mental status. Denies alteration in speech. PSYCHIATRIC: Denies stress, anxiety, alteration in sleep patterns, or depression. All other systems reviewed and negative. Physical Exam - Vital signs Vitals: Temp Pulse Resp BP Pulse Ox 97.8 F 65 18 126/102 H 97 09/26/20 07:19 09/26/20 07:19 09/26/20 07:19 09/26/20 07:19 09/26/20 07:19 - Notes Notes: PHYSICAL EXAMINATION: GENERAL: Appears well, healthy, well-nourished, no acute distress. HEAD: Normocephalic, atraumatic. EYES: PERRL, conjunctiva normal, all extraocular movements intact, sclera nonicteric ENT: Moist mucous membranes. NECK: Supple, no noticeable swelling, redness, rash. Normal range of motion. LUNGS: Diminished breath sounds throughout all lung bowman with fine crackles in bases. CARDIOVASCULAR: S1-S2, regular rate, regular rhythm. Radial pulses 2+, normal. ABDOMEN: Normoactive bowel sounds. Soft, nontender, no guarding, no rebound tenderness, and no masses palpated. EXTREMITIES: Normal strength and range of motion, no pitting or edema. No cyanosis. NEUROLOGICAL: Moves all extremities upon command. Strength 5/5 in all extremities. PSYCH: Normal mood, normal affect. SKIN: Warm, dry. No rash, lesions, ulcerations noted. Normal skin turgor. Course - Re-evaluation Re-evalutation: 09/26/20 12:04 She states that she is breathing much better after receiving a second DuoNeb treatment. Her lung sounds are moving air better. Patient states that she walked to the bathroom to give a urine sample, but states that she got, "short of breath." We will walk the patient and see where her oxygen saturation is. 09/26/20 12:48 Patient's oxygen saturation is 100% on room air. Patient does not meet admission criteria. She is most likely having a COPD exacerbation. We will put her on a course of prednisone. Follow-up precautions were given. Verbal discharge instructions were given to the patient. They verbalized understanding. They are stable for discharge. 09/26/20 I called the patient later after her visit called her in a prescription for Keflex, as she has a moderate amount of leukocytes in her urine with dysuria. Patient is well in appearance, tolerating oral intake without difficulty. No focal abdominal tenderness to suggest acute appendicitis, biliary pathology, acute pancreatitis, tubo-ovarian abscesses, or pelvic inflammatory disease. Patient will be started on antibiotics at this time. A culture has been sent. They will be discharged with return precautions and follow-up recommendations. - Vital Signs Vital signs: Temp Pulse Resp BP Pulse Ox 97.9 F 84 18 151/106 H 96 09/26/20 13:12 09/26/20 13:12 09/26/20 13:12 09/26/20 13:12 09/26/20 13:12 - Laboratory Result Diagrams: 09/26/20 08:05 09/26/20 08:05 Laboratory results interpreted by me: 09/26/20 11:50 Leukocyte Esterase Rfl MODERATE H - EKG Interpretation by Me Additional EKG results interpreted by me: 09/26/20 13:00 Sinus rhythm. Rate 65. MD 172; QRS 88; QT 396; QTc 412. No ST elevations or depressions noted. No acute change from previous EKG done on 08/15/2020. Discharge - Discharge Clinical Impression: COPD exacerbation Chest pain Qualifiers: Chest pain type: unspecified Qualified Code(s): R07.9 - Chest pain, unspecified Urinary tract infection Qualifiers: Urinary tract infection type: acute cystitis Hematuria presence: without hematuria Qualified Code(s): N30.00 - Acute cystitis without hematuria Condition: Stable Disposition: HOME, SELF-CARE Additional Instructions: You were seen for a COPD exacerbation. Your symptoms improved with treatment here in the emergency department. However, it is very important that you return to the emergency department immediately if you began to have worsening difficulty breathing that does not respond to your normal home nebulizers. You are also being sent home on a five-day course of steroids that you should start taking tomorrow. Please also follow closely with your primary care physician. You should eturn to emergency department if you develop fever greater than 101, persistent cough, persistent vomiting, pass out, or any other symptoms that are concerning to you. When you are out and about, you can use your albuterol inhaler, but when you are at home, use your nebulizer. Continue your regular inhalers as directed by your doctor. Prescriptions: Prednisone [Deltasone 20 mg Tablet] 3 tab PO DAILY 5 Days #15 tablet Cephalexin [Keflex] 500 mg PO BID #14 capsule Albuterol Sulfate [Proventil 0.5% Neb 2.5 mg/0.5 ml Vial.neb] 2.5 mg NEB Q4HP PRN #[id number] [email or web address] PRN Reason: Referrals: [facility] [NO LOCAL MD] - Follow up in 3-5 days
[2020-09-26 08:52] LABS: ALKALINE PHOSPHATASE 101 U/L (38-126); ANION GAP 9 (5-19); ASPARTATE AMINO TRANSFERASE 19 U/L (14-36); BILIRUBIN,DIRECT 0.2 mg/dL (0.0-0.4); BILIRUBIN,TOTAL 0.5 mg/dL (0.2-1.3); BLOOD UREA NITROGEN 15 mg/dL (7-20); CALCIUM 9.3 mg/dL (8.4-10.2); CARBON DIOXIDE 25 mmol/L (22-30); CHLORIDE 105 mmol/L (98-107); CREATINE KINASE 37 U/L (30-135); GLUCOSE 101 mg/dL (75-110); POTASSIUM 4.1 mmol/L (3.6-5.0); TOTAL PROTEIN 6.8 g/dL (6.3-8.2)
[2020-09-26 09:08] LABS: CREATINE KINASE MB 0.93 ng/mL (<4.55)
[2020-09-26 09:11] LABS: TROPONIN I < 0.012 ng/mL
[2020-09-26] MEDS ORDERED: METHYLPREDNISOLONE INJ 125 MG/2 ML SDV IV ONE (10:42)
[2020-09-26] MEDS ORDERED: METHYLPREDNISOLONE INJ 125 MG/2 ML SDV IM ONE (10:49)
--- NOTE | 2020-09-26 12:56 | EKG REPORT ---
SEVERITY:- ABNORMAL ECG - SINUS RHYTHM NEW T INVERSION IN V2 COMPARED TO 08/15/20 EKG. : Confirmed by: Emerson Black MD 26-Sep-2020 12:55:14
[2020-09-26 13:13] VITALS: BP 151/106
[2020-09-26 13:25] LABS: APPEARANCE,URINE SLIGHTLY-CLOUDY; BILIRUBIN,URINE NEGATIVE (NEGATIVE); COLOR,URINE YELLOW; GLUCOSE, URINE NEGATIVE (NEGATIVE); KETONES,URINE NEGATIVE (NEGATIVE); PROTEIN,URINE NEGATIVE (NEGATIVE); URINE SPECIFIC GRAVITY 1.013; UROBILINOGEN,URINE NEGATIVE mg/dL (<2.0)
== END 2020-09-26 13:13 | disposition home or self-care (01) ==
LOC: ER 07:10
DX: N30.00 Acute cystitis without hematuria (principal); J44.1 Chronic obstructive pulmonary disease with (acute) exacerbation; R07.9 Chest pain, unspecified; F41.9 Anxiety disorder, unspecified; E11.9 Type 2 diabetes mellitus without complications; I10 Essential (primary) hypertension; Z79.899 Other long term (current) drug therapy
CPT/HCPCS: 93005; 94640 ×2; 99285; 96372; 36415; 87086; 82553; 82550; 85025; 87088; 80053; 81001; 84484; 85379; 83880; 71046; 93010; J2930; 87186

== ENCOUNTER 2020-10-04 13:50 | Inpatient (IN) | payer MEDICAID, OTHER ==
[2020-10-04] MEDS ORDERED: ONDANSETRON HCL INJ/PF 4 MG/2 ML SDV IV ONE (14:04)
[2020-10-04] MEDS ORDERED: NORMAL SALINE 1000 ML 1,000 ML IV ONE (14:09)
--- NOTE | 2020-10-04 14:13 | ER Document Report ---
ED Medical Screen (RME) - General Chief Complaint: Shortness Of Breath Stated Complaint: SHORT OF BREATH,COUGH Time Seen by Provider: 10/04/20 13:56 Primary Care Provider: IVONNE CORBIN NP [Primary Care Provider] - Follow up as needed Notes: Patient presents complaining of difficulty breathing that started yesterday. Patient states that she has had some wheezing. Patient reports cough starting today with chest pain. Patient also reports nausea vomiting diarrhea. Patient reports vomiting x2 episodes and diarrhea x1 episode. Patient does have a history of hypertension, diabetes and COPD. Patient is concerned about possible Covid. Patient reports feeling lightheaded, dizzy and feeling as though she is going to pass out. Patient reports feeling diaphoretic. Patient hypotensive in triage. I have greeted and performed a rapid initial assessment of this patient. A comprehensive ED assessment and evaluation of the patient, analysis of test results and completion of the medical decision making process will be conducted by additional ED providers. TRAVEL OUTSIDE OF THE [place] IN LAST 30 DAYS: No - Related Data Allergies/Adverse Reactions: No Known Allergies Allergy (Verified 08/11/20 08:45) Past Medical History - Past Medical History Cardiac Medical History: Reports: Hx Hypertension Pulmonary Medical History: Reports: Hx COPD Neurological Medical History: Reports: Hx Seizures Endocrine Medical History: Reports: Hx Diabetes Mellitus Type 2 Past Surgical History: Reports: Hx Cholecystectomy, Hx Hysterectomy, Hx Orthopedic Surgery Physical Exam - General General appearance: Alert In distress: Moderate Notes: Patient tachypneic with patient lightheaded with standing, blood pressure 86/61 Course - Re-evaluation Re-evalutation: 10/04/20 14:13 Charge nurse advised of need for bed. Patient taken directly to room 5 Doctor's Discharge - Discharge Referrals: IVONNE CORBIN NP [Primary Care Provider] - Follow up as needed
[2020-10-04] MEDS ORDERED: IPRATROPIUM/ALBUTEROL 0.5-2.5 MG/3 ML AMPUL NEB ONE ×2 (14:32→15:36)
--- NOTE | 2020-10-04 14:33 | ER Document Report ---
ED Respiratory Problem - General Chief Complaint: Shortness Of Breath Stated Complaint: SHORT OF BREATH,COUGH Time Seen by Provider: 10/04/20 13:56 Primary Care Provider: IVONNE CORBIN NP [Primary Care Provider] - Follow up as needed Notes: Patient is a 51-year-old female who presents emergency department with a chief complaint of a productive cough, diarrhea, and generally not feeling well. Patient states that she developed a cough today. She also had some associated chest pain that started this morning. She did have some wheezing this past Saturday. Her last breathing treatment was yesterday. Patient also feels lightheaded and dizzy. Patient was also started on hydrochlorothiazide and lisinopril was increased from 20 mg to 40 mg 4 days ago. Patient has a history of COPD. Patient was also diagnosed with a urinary tract infection and finished her course of Keflex. Denies any fever, but she has had some chills. Patient reports history of "walking pneumonia." TRAVEL OUTSIDE OF THE [place] IN LAST 30 DAYS: No - Related Data Allergies/Adverse Reactions: No Known Allergies Allergy (Verified 08/11/20 08:45) Past Medical History - General Information source: Patient - Social History Smoking Status: Never Smoker Family History: None - Past Medical History Cardiac Medical History: Reports: Hx Hypertension Pulmonary Medical History: Reports: Hx COPD Neurological Medical History: Reports: Hx Seizures Endocrine Medical History: Reports: Hx Diabetes Mellitus Type 2 Past Surgical History: Reports: Hx Cholecystectomy, Hx Hysterectomy, Hx Orthopedic Surgery Review of Systems - Review of Systems Notes: REVIEW OF SYSTEMS: CONSTITUTIONAL : Denies recent illness. Denies recent unintentional weight loss. See HPI. EENT: Denies eye, ear, throat, or mouth pain, discharge, or symptoms. Denies nasal or sinus congestion. CARDIOVASCULAR: Denies chest pain. RESPIRATORY: See HPI. GASTROINTESTINAL: See HPI. GENITOURINARY: Denies difficulty urinating, burning, blood in urine, urgency or frequency. MUSCULOSKELETAL: Denies neck and back pain. Denies joint pain or swelling. SKIN: Denies rash, itchiness, or lesions HEMATOLOGIC : Denies easy bruising or bleeding. LYMPHATIC: Denies swollen, painful, enlarged glands. NEUROLOGICAL: Denies no numbness or tingling denies weakness. Denies headache. Denies altered mental status. Denies alteration in speech. PSYCHIATRIC: Denies stress, anxiety, alteration in sleep patterns, or depression. All other systems reviewed and negative. Physical Exam - Vital signs Vitals: Temp Pulse Resp BP Pulse Ox 97.5 F 111 H 18 55/34 L 94 10/04/20 13:56 10/04/20 13:56 10/04/20 13:56 10/04/20 13:56 10/04/20 13:56 - Notes Notes: PHYSICAL EXAMINATION: GENERAL: Appears well, healthy, well-nourished, no acute distress. HEAD: Normocephalic, atraumatic. EYES: PERRL, conjunctiva normal, all extraocular movements intact, sclera nonicteric ENT: Moist mucous membranes. NECK: Supple, no noticeable swelling, redness, rash. Normal range of motion. LUNGS: Equal breath sounds bilaterally and clear to auscultation. No wheezes rales or rhonchi. CARDIOVASCULAR: S1-S2, tachycardic, regular rhythm. Radial pulses 2+, normal. ABDOMEN: Normoactive bowel sounds. Soft, nontender, no guarding, no rebound tenderness, and no masses palpated. EXTREMITIES: Normal strength and range of motion, no pitting or edema. No cyanosis. NEUROLOGICAL: Moves all extremities upon command. Strength 5/5 in all extre mities. PSYCH: Normal mood, normal affect. SKIN: Warm, dry. No rash, lesions, ulcerations noted. Normal skin turgor. Course - Re-evaluation Re-evalutation: 10/04/20 17:40 Patient has an elevated white blood cell count of 14,200. Fibrinogen is 509 and D-dimer is 1.71. Patient was sent for CTA of the chest. Awaiting results. She was also sent for CT of the abdomen pelvis, as she is having some abdominal discomfort. Her creatinine is slightly elevated at 1.56. This is an increase from last week. Influenza test is negative. Chest x-ray actually appears better than last week. 10/04/20 17:50 CTA of the chest is unremarkable. Patient still tachycardic. 10/04/20 18:[address] Pelayo, the hosptialist. Patient will be admitted to. - Vital Signs Vital signs: Temp Pulse Resp BP Pulse Ox 97.5 F 111 H 20 110/63 89 L 10/04/20 13:56 10/04/20 13:56 10/04/20 15:42 10/04/20 15:42 10/04/20 15:42 - Laboratory Result Diagrams: 10/04/20 14:20 10/04/20 14:20 Laboratory results interpreted by me: 10/04/20 10/04/20 10/04/20 14:20 14:20 14:20 WBC 14.2 H RBC 5.39 H Plt Count 487 H Absolute Neuts (auto) 9.0 H Fibrinogen 509 H D-Dimer BUN 32 H Creatinine 1.56 H Est GFR ( Amer) 42 L Est GFR (MDRD) Non-Af 35 L 10/04/20 14:20 WBC RBC Plt Count Absolute Neuts (auto) Fibrinogen D-Dimer 1.71 H BUN Creatinine Est GFR ( Amer) Est GFR (MDRD) Non-Af Discharge - Discharge Clinical Impression: Shortness of breath, Suspected COVID-19 virus infection Nausea and vomiting Qualifiers: Vomiting type: unspecified Vomiting Intractability: unspecified Qualified Code(s): R11.2 - Nausea with vomiting, unspecified Diarrhea Qualifiers: Diarrhea type: unspecified type Qualified Code(s): R19.7 - Diarrhea, unspecified Condition: Stable Disposition: ADMITTED INPATIENT Admitting Provider: Gita (Hospitalist) Unit Admitted: I[facility]U - COVID floor Referrals: IVONNE CORBIN [employer]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
[2020-10-04 14:51] LABS: ABSOLUTE BASOPHILS # (AUTO) 0.1 10^3/uL (0.0-0.2); ABSOLUTE EOSINOPHILS # (AUTO) 0.4 10^3/uL (0.0-0.6); ABSOLUTE LYMPHOCYTES (AUTO) 3.5 10^3/uL (0.5-4.7); ABSOLUTE MONOCYTES (AUTO) 1.2 10^3/uL (0.1-1.4); BASOPHILS % (AUTO) 0.6 % (0-2); EOSINOPHILS % (AUTO) 2.5 % (0-6); HEMATOCRIT 45.1 % (36.0-47.0); HEMOGLOBIN 15.2 g/dL (12.0-15.5); LYMPHOCYTES % (AUTO) 24.9 % (13-45); MEAN CORPUSCULAR HEMOGLOBIN 28.3 pg (27.0-33.4); MEAN CORPUSCULAR HGB CONC 33.8 g/dL (32.0-36.0); MEAN CORPUSCULAR VOLUME 84 fl (80-97); MONOCYTES % (AUTO) 8.7 % (3-13); PLATELET COUNT 487 10^3/uL (150-450); RED BLOOD COUNT 5.39 10^6/uL (3.72-5.28); RED CELL DISTRIBUTION WIDTH 12.9 % (11.5-14.0); SEGMENTED NEUTROPHILS % (AUTO) 63.3 % (42-78); TOTAL CELLS COUNTED % (AUTO) 100 %; WHITE BLOOD COUNT 14.2 10^3/uL (4.0-10.5)
[2020-10-04 15:06] LABS: ALBUMIN 4.7 g/dL (3.5-5.0); ALKALINE PHOSPHATASE 116 U/L (38-126); ANION GAP 14 (5-19); ASPARTATE AMINO TRANSFERASE 20 U/L (14-36); BILIRUBIN,DIRECT 0.1 mg/dL (0.0-0.4); BILIRUBIN,TOTAL 0.7 mg/dL (0.2-1.3); BLOOD UREA NITROGEN 32 mg/dL (7-20); CARBON DIOXIDE 22 mmol/L (22-30); CHLORIDE 103 mmol/L (98-107); GLUCOSE 87 mg/dL (75-110); POTASSIUM 4.9 mmol/L (3.6-5.0)
[2020-10-04 15:17] LABS: NT PRO BNP 49 pg/mL (<125)
[2020-10-04 15:19] LABS: TROPONIN I < 0.012 ng/mL
--- NOTE | 2020-10-04 15:22 | RADIOLOGY REPORT (SQ) ---
EXAM DESCRIPTION: CHEST SINGLE VIEW IMAGES COMPLETED DATE/TIME: 10/04/2020 3:06 pm REASON FOR STUDY: cp, cough COMPARISON: 09/26/2020 and to 08/15/2020. EXAM PARAMETERS: NUMBER OF VIEWS: One view. TECHNIQUE: Single frontal radiographic view of the chest acquired. RADIATION DOSE: NA LIMITATIONS: None. FINDINGS: LUNGS AND PLEURA: No opacities, masses or pneumothorax. No pleural effusion. MEDIASTINUM AND HILAR STRUCTURES: No masses. Contour normal. HEART AND VASCULAR STRUCTURES: Heart normal in size. Normal vasculature. BONES: No acute findings. HARDWARE: Again seen is a round metallic density, probably a pellet, in the upper thoracic midline. Right shoulder prosthesis. OTHER: No other significant finding. IMPRESSION: NO ACUTE RADIOGRAPHIC FINDING IN THE CHEST. TECHNICAL DOCUMENTATION: JOB ID: [id number] 2010 [employer]- All Rights Reserved Reading location - IP/workstation name: [email or web address]
[2020-10-04 15:31] LABS: INTERNATIONAL RATION (INR) 0.96; PARTIAL THROMBOPLASTIN TIME 26.7 SEC (23.5-35.8); PROTHROMBIN TIME 12.9 SEC (11.4-15.4)
[2020-10-04 15:34] LABS: D-DIMER 1.71 ug/mL (0.00-0.50)
[2020-10-04] MEDS ORDERED: DICYCLOMINE HCL 20 MG TABLET PO ONE (15:36)
[2020-10-04] MEDS ORDERED: ACETAMINOPHEN 325 MG TABLET PO ONE (15:37)
[2020-10-04 16:20] LABS: A TYPE INFLUENZA AG NEGATIVE (NEGATIVE); B INFLUENZA AG NEGATIVE (NEGATIVE)
[2020-10-04] MEDS ORDERED: LEVOFLOXACIN 750 MG/D5W RTU 750 MG/150 ML RTUPB IV ONE (17:34)
--- NOTE | 2020-10-04 17:47 | RADIOLOGY REPORT (SQ) ---
EXAM DESCRIPTION: CTA CHEST IMAGES COMPLETED DATE/TIME: 10/04/2020 5:16 pm REASON FOR STUDY: elevated d-dimer; shortness of breath COMPARISON: None. TECHNIQUE: CT scan of the chest performed using helical scanning technique with dynamic intravenous contrast injection. Images reviewed with lung, soft tissue and bone windows. Reconstructed coronal and sagittal MPR images reviewed. Additional 3 dimensional post-processing performed to develop Maximal Intensity Projection images (IA P). All images stored on PACS. All CT scanners at this facility use dose modulation, iterative reconstruction, and/or weight based d osing when appropriate to reduce radiation dose to as low as reasonably achievable (ALARA). [facility]: Dose Right [facility]: CareDose [facility]: Dose Right [facility]: Teradose 4D [facility]: milabent CONTRAST TYPE AND DOSE: 94 mL Omnipaque 300- low osmolar. Contrast bolus adequate for pulmonary arteries and aorta. RENAL FUNCTION: BUN 32 creatinine 1.56 RADIATION DOSE: CT Rad equipment meets quality standard of care and radiation dose reduction techniq ues were employed. CTDIvol: 13.2 - 34.8 mGy. DLP: 2964 mGy-cm. . LIMITATIONS: Less than optimal opacification of the pulmonary arteries. FINDINGS: LUNGS AND PLEURA: No masses, infiltrates, or pneumothorax. No pleural effusions or pleura l calcifications. AORTA AND GREAT VESSELS: No aneurysm. No dissection. HEART: No pericardial effusion. No significant coronary artery calcifications. PULMONARY ARTERIES: No emboli seen in the main pulmonary arteries or the major branches. HILAR AND MEDIASTINAL STRUCTURES: No identified masses or abnormal nodes. HARDWARE: None in the chest. UPPER ABDOMEN: No significant findings. Limited exam. THYROID AND OTHER SOFT TISSUES: No masses. No adenopathy. BONES: No acute or significant finding. 3D MIPS: Confirm above findings. OTHER: No other significant finding. IMPRESSION: There is no aortic aneurysm or dissection. There is no major pulmonary embolus. Evalua tion of the pulmonary arteries is limited. No acute findings in the thorax. COMMENT: Quality ID # [id number]: Final reports with documentation of one or more dose reduction techniques (e.g., Automated exposure control, adjustment of the mA and/or kV according to patient size, use of iterative reconstruction technique) TECHNICAL DOCUMENTATION: JOB ID: [id number] 2010 [employer]- All Rights Reserved Reading location - IP/workstation name: [email or web address]
[2020-10-04] MEDS ORDERED: LEVETIRACETAM 500 MG/NACL-ISO 500 MG/100 ML RTUPB IV ONE (17:53)
--- NOTE | 2020-10-04 17:54 | RADIOLOGY REPORT (SQ) ---
EXAM DESCRIPTION: CT ABD/PELVIS WITH IV ONLY IMAGES COMPLETED DATE/TIME: 10/04/2020 5:16 pm REASON FOR STUDY: abdominal pain COMPARISON: None. TECHNIQUE: CT scan of the abdomen and pelvis performed using helical scanning technique with dynamic intravenous contrast injection. No oral contrast. Images reviewed with lung, soft tissue, and bone windows. Reconstructed coronal and sagittal MPR images reviewed. Delayed images were not acquired. Al l images stored on PACS. All CT scanners at this facility use dose modulation, iterative reconstruction, and/or weight based d osing when appropriate to reduce radiation dose to as low as reasonably achievable (ALARA). [facility]: Dose Right [facility]: CareDose [facility]: Dose Right [facility]: Teradose 4D [facility]: Qonf CONTRAST TYPE AND DOSE: contrast/concentration: Isovue 300.00 mmol/ml; Total Contrast Delivered: 94. 0 ml; Total Saline Delivered: 40.4 ml RENAL FUNCTION: BUN 32 creatinine 1.56 RADIATION DOSE: . LIMITATIONS: None. FINDINGS: LOWER CHEST: See separate report of the CT of the chest. LIVER: Normal size. No masses. No dilated ducts. SPLEEN: Normal size. No focal lesions. PANCREAS: No masses. No significant calcifications. No adjacent inflammation or peripancreatic fluid collections. Pancreatic duct not dilated. GALLBLADDER: Surgically absent. ADRENAL GLANDS: No significant masses or asymmetry. RIGHT KIDNEY AND URETER: No solid masses. There is large calcification in what may represent a cristy ceal diverticulum. No hydronephrosis or hydroureter. LEFT KIDNEY AND URETER: No solid masses. No significant calcifications. No hydronephrosis or hydr oureter. AORTA AND VESSELS: No aneurysm. No dissection. Renal arteries, SMA, celiac without stenosis. RETROPERITONEUM: No retroperitoneal adenopathy, hemorrhage or masses. BOWEL AND PERITONEAL CAVITY: No masses or inflammatory changes. No free fluid or peritoneal masses. APPENDIX: Not identified. PELVIS: No mass. No free fluid. Normal bladder. ABDOMINAL WALL: Uncomplicated left inguinal hernia. BONES: Grade 1 anterolisthesis of L5 on S1. OTHER: No other significant finding. IMPRESSION: 1. There is a prominent calcification in what may represent a calyceal diverticulum in the right kidney. 2. Uncomplicated left inguinal hernia. 3. Grade 1 anterolisthesis of L5 on S1. TECHNICAL DOCUMENTATION: JOB ID: [id number] Quality ID # [id number]: Final reports with documentation of one or more dose reduction techniques (e.g., Au tomated exposure control, adjustment of the mA and/or kV according to patient size, use of iterative reconstruction technique) 2010 [employer]- All Rights Reserved Reading location - IP/workstation name: [email or web address]
[2020-10-04 19:12] LABS: APPEARANCE,URINE CLOUDY; BILIRUBIN,URINE NEGATIVE (NEGATIVE); COLOR,URINE YELLOW; GLUCOSE, URINE NEGATIVE (NEGATIVE); KETONES,URINE NEGATIVE (NEGATIVE); LEUKOCYTE ESTERASE,URINE LARGE (NEGATIVE); NITRITE,URINE NEGATIVE (NEGATIVE); PROTEIN,URINE NEGATIVE (NEGATIVE); UROBILINOGEN,URINE NEGATIVE mg/dL (<2.0)
[2020-10-04 19:13] LABS: URINE SPECIFIC GRAVITY > 1.060
[2020-10-04] MEDS ORDERED: ONDANSETRON 4 MG TAB.RAPDIS PO PRN (19:17)
[2020-10-04] MEDS ORDERED: ALBUTEROL SULFATE HFA (90 MCG/PUFF) 8 GM MDI (1 MDI/ER DISP) IH PRN (19:27)
[2020-10-04] MEDS ORDERED: VALPROATE SODIUM SYRUP 250 MG/5 ML UDCUP PO SCH (19:30)
[2020-10-04] MEDS ORDERED: NORMAL SALINE 1000 ML 2,000 ML IV ONE (19:45)
[2020-10-04] MEDS: IPRATROPIUM/ALBUTEROL 0.5-2.5 MG/3 ML AMPUL NEB SCH (20:27)
--- NOTE | 2020-10-04 20:41 | PDOC H&P ---
History of Present Illness Admission Date/PCP: 10/04/20 18:12 IVONNE CORBIN NP Patient complains of: Shortness of breath, light headedness History of Present Illness: DAWIT MCCARTHY is a 55 year old female with past medical history of HTN, DMII, COPD, bipolar disorder, chronic back pain, arthritis who presents to the ED with concerns regarding episode of light headedness just prior to arrival. Pt was walking across parking lot when she became light headed and felt as though the world was spinning. She was able to move to a seated position without falling and reported to the ED for further evaluation. She further reports x1 week history of increasing SOB with associated increase on exertion and while lying flat. Of note she was evaluated and treated in the ED on 09/28/2020 regarding COPD exacerbation. This was treated with prednisone and breathing treatments in outpatient setting without improvement of symptoms. Additionally she was found to have UTI tx'd with Keflex. Reports recent increase in Lisinopril and HCTZ by PCP x4 days ago. Additionally she has hx of bipolar disorder with multiple failed suicide attempts. She was recently marva by psych who rx'd lithium though pt has not been able to obtain medication and there for has not taken any yet. Upon further questioning reports associated subjective fever, chills, "chest heaviness", productive cough, palpitations, diarrhea, nausea, vomiting and abdominal pain. Evaluation in the ED patient is hypotensive with initial BP 50/30, this improved to 80/60 with 1L NS. She is afebrile and tachycardic. CBC significant for neutrophilic leukocytosis (14.2). Elevated D-dimer and fibrinogen on coagulation studies. Evidence of CAR on chemestries with BUN 32 and Creatinine 1.56. UA with small blood and large leukocyte esterase. CXR, chest CT and CT abdomen without acute findings. She was treated with IV fluids, single dose of levofloxacin and referred to the hospitalist service for further evaluation and treatment. Past Medical History Cardiac Medical History: Reports: Hypertension Pulmonary Medical History: Reports: Chronic Obstructive Pulmonary Disease (COPD), Pneumonia - Recurrent walking pneumonia Denies: Bronchitis Neurological Medical History: Reports: Seizures Denies: Hemorrhagic CVA, Ischemic CVA Endocrine Medical History: Reports: Diabetes Mellitus Type 2 Denies: Hyperthyroidism, Hypothyroidism Renal/ Medical History: Denies: Chronic Kidney Disease, Nephrolithiasis Malignancy Medical History: Reports: None GI Medical History: Reports: Gastroesophageal Reflux Disease Musculoskeltal Medical History: Reports: Arthritis, Other - Chronic back pain Psychiatric Medical History: Reports: Attention Deficit Hyperactivity Disorder, Bipolar Disorder, Depression, General Anxiety Disorder, Other - Hx mulitple suicide attempts Denies: Alcohol Dependency Traumatic Medical History: Reports: Other - 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 Hematology: Denies: Anemia, Bleeding Tendencies Infectious Medical History: Denies: Methicillin-Resistant Staph Aureus, Vancomycin-Resistant Enterococci Past Surgical History Past Surgical History: Reports: Cholecystectomy, Hysterectomy, Orthopedic Surgery Social History Information Source: Patient Lives with: Family Smoking Status: Never Smoker Electronic Cigarette use?: No Frequency of Alcohol Use: Rare Hx Recreational Drug Use: Yes - Several years ago, denies current use Drugs: Cocaine Hx Prescription Drug Abuse: No - Advance Directive Resuscitation Status: Full Code Family History Family History: Hypertension Parental Family History Reviewed: Yes Children Family History Reviewed: Yes Sibling(s) Family History Reviewed.: Yes Medication/Allergy Home Medications: Levetiracetam [Keppra] 1,000 mg PO BID #60 tablet 08/11/20 Cephalexin [Keflex] 500 mg PO BID #14 capsule 09/26/20 Albuterol Sulfate [Albuterol Sulfate Hfa] 2 puff IH Q4HP PRN 10/04/20 Albuterol Sulfate [Proventil 0.5% Neb 2.5 mg/0.5 ml Vial.neb] 2.5 mg NEB Q4HP PRN 10/04/20 Atorvastatin Calcium [Lipitor 40 mg Tablet] 40 mg PO QHS 10/04/20 Budesonide/Formoterol Fumarate [Symbicort HFA 160-4.5 mcg Inhaler 6 gm] 2 puff IH BID 10/04/20 Gabapentin 300 mg PO Q8 10/04/20 Hydrochlorothiazide [Hydrodiuril 12.5 mg Tablet] 12.5 mg PO DAILY 10/04/20 Lisinopril [Zestril] 40 mg PO DAILY 10/04/20 Metformin HCl [Glucophage 500 mg Tablet] 500 mg PO BID 10/04/20 Omeprazole 40 mg PO Q6AM 10/04/20 Allergies/Adverse Reactions: No Known Allergies Allergy (Verified 08/11/20 08:45) Review of Systems Constitutional: PRESENT: chills, fatigue, fever(s) - subjective, night sweats. ABSENT: anorexia, weight loss Eyes: PRESENT: as per HPI, visual disturbances Ears: ABSENT: hearing changes Nose, Mouth, and Throat: ABSENT: headache(s), sore throat Cardiovascular: PRESENT: dyspnea on exertion, orthropnea, palpitations. ABSENT: edema Respiratory: PRESENT: cough, dyspnea, sputum. ABSENT: hemoptysis Gastrointestinal: PRESENT: abdominal pain, diarrhea, nausea, vomiting. ABSENT: constipation, hematemesis, hematochezia Genitourinary: ABSENT: difficulty urinating, dysuria, hematuria Musculoskeletal: PRESENT: back pain Integumentary: PRESENT: diaphoresis. ABSENT: pruritus, rash, wounds Neurological: PRESENT: dizziness. ABSENT: abnormal speech, confusion, convulsions, frequent falls, paresthesias, syncope, tingling, tremor(s), vertigo Psychiatric: PRESENT: anxiety, depression. ABSENT: suicidal ideation Endocrine: ABSENT: cold intolerance, flushing, heat intolerance, polydipsia, polyuria Physical Exam Vital Signs: Temp Pulse Resp BP Pulse Ox 97.5 F 111 H 20 110/63 89 L 10/04/20 13:56 10/04/20 13:56 10/04/20 15:42 10/04/20 15:42 10/04/20 15:42 Intake & Output 10/03/20 10/04/20 10/05/20 06:59 06:59 06:59 Intake Total 1100 Balance 1100 General appearance: PRESENT: cooperative, mild distress, obese, other - Tearful during exam Head exam: PRESENT: atraumatic, normocephalic Eye exam: PRESENT: conjunctiva pink, EOMI. ABSENT: scleral icterus Mouth exam: PRESENT: dry mucosa, tongue midline Neck exam: PRESENT: full ROM. ABSENT: JVD, tenderness Respiratory exam: PRESENT: clear to auscultation carmen, symmetrical, unlabored, wheezes. ABSENT: rales, rhonchi, tachypnea Cardiovascular exam: PRESENT: tachycardia. ABSENT: diastolic murmur, systolic murmur Pulses: PRESENT: normal radial pulses GI/Abdominal exam: PRESENT: normal bowel sounds, soft. ABSENT: distended, firm, guarding, tenderness Rectal exam: PRESENT: deferred Extremities exam: PRESENT: full ROM. ABSENT: clubbing, pedal edema, tenderness Musculoskeletal exam: PRESENT: ambulatory, full ROM. ABSENT: deformity, dislo cation Neurological exam: PRESENT: alert, awake, oriented to person, oriented to place, oriented to time, oriented to situation, CN II-XII grossly intact. ABSENT: motor sensory deficit Psychiatric exam: PRESENT: anxious, depressed, manic. ABSENT: suicidal ideation Focused psych exam: PRESENT: restlessness Skin exam: PRESENT: dry, intact, warm Results Laboratory Results: 10/04/20 14:20 10/04/20 14:20 10/04/20 10/04/20 10/04/20 14:20 14:20 18:33 WBC 14.2 H RBC 5.39 H Hgb 15.2 Hct 45.1 MCV 84 MCH 28.3 MCHC 33.8 RDW 12.9 Plt Count 487 H Seg Neutrophils % 63.3 Sodium 138.8 Potassium 4.9 Chloride 103 Carbon Dioxide 22 Anion Gap 14 BUN 32 H Creatinine 1.56 H Est GFR ( Amer) 42 L Glucose 87 Calcium 10.0 Magnesium 1.8 Total Bilirubin 0.7 AST 20 Alkaline Phosphatase 116 Total Protein 8.0 Albumin 4.7 Urine Color YELLOW Urine Appearance CLOUDY Urine pH 5.0 Ur Specific [place] > 1.060 Urine Protein NEGATIVE Urine Glucose (UA) NEGATIVE Urine Ketones NEGATIVE Urine Blood SMALL H Urine Nitrite NEGATIVE Ur Leukocyte Esterase LARGE H Urine WBC (Auto) 65 Urine RBC (Auto) 73 10/04/20 14:20 Troponin I < 0.012 NT-Pro-B Natriuret Pep 49 Impressions: Chest X-Ray 10/04/20 14:03 IMPRESSION: NO ACUTE RADIOGRAPHIC FINDING IN THE CHEST. Chest/Abdomen CTA 10/04/20 16:01 IMPRESSION: There is no aortic aneurysm or dissection. There is no major pulmonary embolus. Evaluation of the pulmonary arteries is limited. No acute findings in the thorax. Abdomen/Pelvis CT 10/04/20 16:15 IMPRESSION: 1. There is a prominent calcification in what may represent a calyceal diverticulum in the right kidney. 2. Uncomplicated left inguinal hernia. 3. Grade 1 anterolisthesis of L5 on S1. Assessment and Plan - Diagnosis (1) Sepsis Qualifiers: Sepsis type: sepsis due to unspecified organism Sepsis acute organ dysfunction status: with acute organ dysfunction Severe sepsis acute organ dysfunction type: acute renal failure Acute renal failure type: unspecified Severe sepsis shock status: without septic shock Qualified Code(s): A41.9 - Sepsis, unspecified organism; R65.20 - Severe sepsis without septic shock; N17.9 - Acute kidney failure, unspecified Is this a current diagnosis for this admission?: Yes Plan: On initial presentation hypotensive and tachycardic with leukocytosis and CAR. CXR, CT chest and abdomen without acute findings. Etiology unknown: Acute respiratory infection vs less likely urinary tract infection vs Cdiff. - Initiate treatment with Azithromycin and Ceftriaxone - NS IV bolus x2 with continuous IVF Lactic acid pending Blood culture pending Urine culture pending Cnt to monitor (2) Neutrophilic leukocytosis Is this a current diagnosis for this admission?: Yes Plan: WBC 14.2 on admission. Treatment as discussed above. Continue to monitor on daily CBC. (3) Hypotension Qualifiers: Hypotension type: unspecified hypotension type Qualified Code(s): I95.9 - Hypotension, unspecified Is this a current diagnosis for this admission?: Yes Plan: 55/34 on initial presentation -> 80/60 with 1L NS. Etiology unknown: Orthostatic vs drug related vs dehydration/CAR vs infection - Orthostatic vital signs monitored q shift - Recent increase lisinopril/HCTZ, hold medications at this time - Sepsis work up as discussed above 2 bolus IVF followed by continuous IV fluids. Continue to monitor VS closely. (4) Shortness of breath Is this a current diagnosis for this admission?: Yes Plan: CXR and Chest CT without findings. Ddx: CAP vs atypical pneumonia vs COVID vs bronchitis vs COPD exacerbation less likely - Scheduled breathing treatments - Tx Azithromycin and Ceftriaxone Repeat CXR tomorrow Sputum culture pending Legionella urine AG pending Monitor O2 sats (5) Acute kidney injury Is this a current diagnosis for this admission?: Yes Plan: BUN 32, Cr 1.56 Ddx: Dehydration vs recent medication change vs Sepsis IVF as discussed above Avoid nephrotoxic medications Monitor daily BMP (6) UTI (urinary tract infection) Qualifiers: Urinary tract infection type: acute cystitis Hematuria presence: without hematuria Qualified Code(s): N30.00 - Acute cystitis without hematuria Is this a current diagnosis for this admission?: Yes Plan: Positive UC 09/26/2020 (Proteus Mirabilis, Staph Caqgulase Negative) tx'd with Keflex. Pt reports hx frequent UTIs. Asymptomatic at this time. UC pending. (7) Nausea and vomiting Qualifiers: Vomiting type: unspecified Vomiting Intractability: non-intractable Qualified Code(s): R11.2 - Nausea with vomiting, unspecified Is this a current diagnosis for this admission?: Yes Plan: Ct abdomen without acute findings. Suspect secondary to underlying Sepsis vs COVID. Utilize Zofran as needed. IVF initiated Continue to monitor. (8) Diarrhea Qualifiers: Diarrhea type: unspecified type Qualified Code(s): R19.7 - Diarrhea, unspecified Is this a current diagnosis for this admission?: Yes Plan: CT abdomen without acute findings. Hx of recent antibiotic use. C.diff pending. (9) Suspected COVID-19 virus infection Is this a current diagnosis for this admission?: Yes Plan: Hx SOB, nausea, vomiting and diarrhea. Elevated Fibrinogen and D-dimer. ESR, CRP pending. CXR and chest CT without acute findings. COVID pending Treatment otherwise as discussed above If continues to worsen consider implementing steroids, vitamin C, vitamin D, zinc and melatotin tx. (10) Bipolar disease, manic Qualifiers: Current episode severity: moderate Qualified Code(s): F31.12 - Bipolar disorder, current episode manic without psychotic features, moderate Is this a current diagnosis for this admission?: Yes Plan: Hx bipolar disorder. Currently exhibiting signs of manic episode. Recently rx'd lithium, though has not yet obtained medication. Hold lithium due to CAR. Initiate tx with Valproate and Seroquel. 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 (12) Hypertension Qualifiers: Hypertension type: essential hypertension Qualified Code(s): I10 - Essential (primary) hypertension Is this a current diagnosis for this admission?: Yes Plan: With recent increase in lisinopril/HCTZ Potential cause of hypotension/dehydration Hold medication at this time Monitor BP closely (13) Pre-diabetes Is this a current diagnosis for this admission?: Yes Plan: Historically treated with Metformin. Hem A1c 5.7. Discontinue Metformin at this time. (14) COPD (chronic obstructive pulmonary disease) Qualifiers: COPD type: chronic bronchitis Chronic bronchitis type: simple Qualified Code(s): J41.0 - Simple chronic bronchitis Is this a current diagnosis for this admission?: Yes Plan: Hx COPD. Recently treated for COPD exacerbation 09/26/2020 in ED. Home medications include: Symbacort, requiring use q1hr over past week Implement breathing treatments as above Resume home therapy - Time Time Spent with patient: 35 or more minutes Medications reviewed and adjusted accordingly: Yes Anticipated Discharge Disposition: Home, Self Care Anticipated Discharge Timeframe: within 72 hours - Inpatient Certification Based on my medical assessment, after consideration of the patient's comorbidities, presenting symptoms, or acuity I expect that the services needed warrant INPATIENT care.: Yes I certify that my determination is in accordance with my understanding of [facility]'s requirements for reasonable and necessary INPATIENT services [42 CFR 412.3e].: Yes Medical Necessity: Failure to Improve With Outpatient Therapy, Significant Comorbidiites Make Outpatient Treatment Too Risky, Need Close Monitoring Due to Risk of Patient Decompensation, Need For IV Fluids, Need for Nebulizer Therapy and Monitoring of Response, Need for IV Antibiotics, Risk of Complication if Not Cared For in Hospital, Risk of Diagnosis Which Will Require Inpatient Eval/Care/Monitoring Post Hospital Care: D/C or Transfer Summary
[2020-10-04] MEDS: ATORVASTATIN CALCIUM 40 MG TABLET PO SCH (21:11)
[2020-10-04] MEDS: QUETIAPINE FUMARATE 100 MG TABLET PO SCH (21:11)
[2020-10-04] MEDS: LEVETIRACETAM 500 MG TABLET PO SCH (21:11)
[2020-10-04] MEDS: NORMAL SALINE 1000 ML 1,000 ML IV PRN (21:16)
[2020-10-04] MEDS: VALPROATE SODIUM SYRUP 250 MG/5 ML UDCUP PO SCH (22:14)
[2020-10-04] MEDS ORDERED: GABAPENTIN 300 MG CAPSULE PO ONE (23:00)
[2020-10-05] MEDS ORDERED: NORMAL SALINE 1000 ML 1,000 ML IV ONE ×3 (00:30→16:00)
[2020-10-05] MEDS: IPRATROPIUM/ALBUTEROL 0.5-2.5 MG/3 ML AMPUL NEB SCH ×4 (02:27→19:52)
[2020-10-05 03:02] LABS: HEMATOCRIT 34.7 % (36.0-47.0); MEAN CORPUSCULAR HEMOGLOBIN 28.6 pg (27.0-33.4); MEAN CORPUSCULAR HGB CONC 33.7 g/dL (32.0-36.0); MEAN CORPUSCULAR VOLUME 85 fl (80-97); PLATELET COUNT 248 10^3/uL (150-450); RED BLOOD COUNT 4.09 10^6/uL (3.72-5.28); RED CELL DISTRIBUTION WIDTH 12.9 % (11.5-14.0)
[2020-10-05 03:03] LABS: HEMOGLOBIN 11.7 g/dL (12.0-15.5)
[2020-10-05 03:53] LABS: FREE T4 (FREE THYROXINE) 1.34 ng/dL (0.78-2.19)
[2020-10-05 04:07] LABS: THYROID STIMULATING HORMONE 1.39 uIU/mL (0.47-4.68)
[2020-10-05 04:37] LABS: ANION GAP 7 (5-19); BLOOD UREA NITROGEN 36 mg/dL (7-20); CALCIUM 7.9 mg/dL (8.4-10.2); CARBON DIOXIDE 21 mmol/L (22-30); CHLORIDE 111 mmol/L (98-107); GLUCOSE 144 mg/dL (75-110); POTASSIUM 4.3 mmol/L (3.6-5.0)
[2020-10-05] MEDS: NORMAL SALINE 1000 ML 1,000 ML IV PRN ×3 (05:20→18:24)
[2020-10-05] MEDS: HEPARIN SOD (PORCINE) 5,000 UNIT/ML 1 ML VIAL SUBCUT SCH ×3 (05:24→21:52)
[2020-10-05] MEDS: PANTOPRAZOLE SODIUM 20 MG TABLET.DR PO SCH (06:01)
[2020-10-05] MEDS: GABAPENTIN 300 MG CAPSULE PO SCH ×3 (06:01→21:53)
[2020-10-05] MEDS ORDERED: (PENDING PHARMACY ID) (Levetiracetam [Keppra] 1,000 MG) PO SCH (10:00)
[2020-10-05] MEDS: LIDOCAINE 5% (700 MG) TRANSDERMAL ADH..PATCH TP SCH (10:27)
[2020-10-05] MEDS: CEFTRIAXONE 1 GM/D5W RTU 1 GM/50 ML RTUPB IV SCH (10:28)
[2020-10-05] MEDS: AZITHROMYCIN 250 MG TABLET PO SCH (10:28)
[2020-10-05] MEDS: FLUTICASONE/VILANTEROL 200-25 MCG/DOSE IH SCH (10:28)
[2020-10-05] MEDS: LEVETIRACETAM 500 MG TABLET PO SCH ×2 (10:30→21:52)
--- NOTE | 2020-10-05 14:24 | RADIOLOGY REPORT (SQ) ---
EXAM DESCRIPTION: CHEST SINGLE VIEW IMAGES COMPLETED DATE/TIME: 10/05/2020 6:10 am REASON FOR STUDY: Shortness of breath COMPARISON: 10/04/2020 EXAM PARAMETERS: NUMBER OF VIEWS: One view. TECHNIQUE: Single frontal radiographic view of the chest acquired. RADIATION DOSE: NA LIMITATIONS: Low lung volumes. FINDINGS: LUNGS AND PLEURA: Minimal basilar atelectasis. No consolidation or effusions. MEDIASTINUM AND HILAR STRUCTURES: No masses. Contour normal. HEART AND VASCULAR STRUCTURES: Heart normal in size. Normal vasculature. BONES: No acute findings. HARDWARE: None in the chest. OTHER: Small radiopaque foreign body overlying the upper mediastinum is unchanged. IMPRESSION: Minimal basilar atelectasis. Findings are accentuated by low lung volumes. TECHNICAL DOCUMENTATION: JOB ID: [id number] [employer]- All Rights Reserved Reading location - IP/workstation name: [email or web address]
[2020-10-05] MEDS: ACETAMINOPHEN 325 MG TABLET PO PRN ×2 (14:26→18:27)
--- NOTE | 2020-10-05 18:00 | PDOC PROGRESS REPORT ---
Subjective Progress Note for:: 10/05/20 Subjective:: Patient is resting in bed. She is on 2 L nasal cannula saturating around 100%. This was removed. Patient states that she continues to experience difficulty with taking a deep breath. She feels as though she has chest congestion that is clearing. Provides me with no other concerns or complaints today. Discussed case with patient's nurse. Believes patient would benefit from psychiatric consult. Psychiatric consult placed. No other concerns or complaints at this time Reason For Visit: SHORTNESS OF BREATH,SEPSIS,ACUTE KIDNEY INJURY Physical Exam Vital Signs: Temp Pulse Resp BP Pulse Ox 97.8 F 85 20 79/65 L 100 10/05/20 10:00 10/05/20 14:00 10/05/20 14:00 10/05/20 14:00 10/05/20 14:00 Intake & Output 10/04/20 10/05/20 10/06/20 06:59 06:59 06:59 Intake Total 2250 700 Output Total 1200 100 Balance 1050 600 Weight 91.4 kg Additional comments: General appearance: PRESENT: cooperative, mild distress, obese. Head exam: PRESENT: atraumatic, normocephalic Eye exam: PRESENT: conjunctiva pink, EOMI. ABSENT: scleral icterus Mouth exam: PRESENT: dry mucosa, tongue midline Neck exam: PRESENT: full ROM. ABSENT: JVD, tenderness Respiratory exam: PRESENT: clear to auscultation carmen, symmetrical, unlabored, wheezes. ABSENT: rales, rhonchi, tachypnea Cardiovascular exam: PRESENT: tachycardia. ABSENT: diastolic murmur, systolic murmur Pulses: PRESENT: normal radial pulses GI/Abdominal exam: PRESENT: normal bowel sounds, soft. ABSENT: distended, firm, guarding, tenderness Rectal exam: PRESENT: deferred Extremities exam: PRESENT: full ROM. ABSENT: clubbing, pedal edema, tenderness Musculoskeletal exam: PRESENT: ambulatory, full ROM. ABSENT: deformity, dislocation Neurological exam: PRESENT: alert, awake, oriented to person, oriented to place, oriented to time, oriented to situation, CN II-XII grossly intact. ABSENT: motor sensory deficit Psychiatric exam: PRESENT: anxious, depressed, manic. ABSENT: suicidal ideation Focused psych exam: PRESENT: restlessness Skin exam: PRESENT: dry, intact, warm Results Laboratory Results: 10/05/20 02:52 10/05/20 02:52 10/04/20 10/04/20 10/04/20 14:20 18:33 20:05 WBC RBC Hgb Hct MCV MCH MCHC RDW Plt Count Sodium Potassium Chloride Carbon Dioxide Anion Gap BUN Creatinine Est GFR ( Amer) Glucose Lactic Acid 1.2 Calcium Magnesium C-Reactive Protein 9.0 TSH Free T4 Urine Color YELLOW Urine Appearance CLOUDY Urine pH 5.0 Ur Specific Se[place] > 1.060 Urine Protein NEGATIVE Urine Glucose (UA) NEGATIVE Urine Ketones NEGATIVE Urine Blood SMALL H Urine Nitrite NEGATIVE Ur Leukocyte Esterase LARGE H Urine WBC (Auto) 65 Urine RBC (Auto) 73 10/04/20 10/05/20 10/05/20 23:04 02:52 02:52 WBC 7.0 RBC 4.09 Hgb 11.7 L D Hct 34.7 L MCV 85 MCH 28.6 MCHC 33.7 RDW 12.9 Plt Count 248 Sodium 138.8 Potassium 4.3 Chloride 111 H Carbon Dioxide 21 L Anion Gap 7 BUN 36 H Creatinine 1.26 H Est GFR ( Amer) 54 L Glucose 144 H Lactic Acid 3.0 H Calcium 7.9 L Magnesium 1.6 C-Reactive Protein TSH Free T4 Urine Color Urine Appearance Urine pH Ur Specific [place] Urine Protein Urine Glucose (UA) Urine Ketones Urine Blood Urine Nitrite Ur Leukocyte Esterase Urine WBC (Auto) Urine RBC (Auto) 10/05/20 10/05/20 10/05/20 02:52 02:52 12:13 WBC RBC Hgb Hct MCV MCH MCHC RDW Plt Count Sodium Potassium Chloride Carbon Dioxide Anion Gap BUN Creatinine Est GFR ( Amer) Glucose Lactic Acid 2.2 H 0.9 Calcium Magnesium C-Reactive Protein TSH 1.39 Free T4 1.34 Urine Color Urine Appearance Urine pH Ur Specific Se[place]our Urine Protein Urine Glucose (UA) Urine Ketones Urine Blood Urine Nitrite Ur Leukocyte Esterase Urine WBC (Auto) Urine RBC (Auto) 10/04/20 10/04/20 14:20 20:05 Troponin I < 0.012 < 0.012 NT-Pro-B Natriuret Pep 49 Impressions: Chest/Abdomen CTA 10/04/20 16:01 IMPRESSION: There is no aortic aneurysm or dissection. There is no major pulmonary embolus. Evaluation of the pulmonary arteries is limited. No acute findings in the thorax. Abdomen/Pelvis CT 10/04/20 16:15 IMPRESSION: 1. There is a prominent calcification in what may represent a david ceal diverticulum in the right kidney. 2. Uncomplicated left inguinal hernia. 3. Grade 1 anterolisthesis of L5 on S1. Chest X-Ray 10/05/20 01:00 IMPRESSION: Minimal basilar atelectasis. Findings are accentuated by low lung volumes. Assessment and Plan - Diagnosis (1) Sepsis Qualifiers: Sepsis type: sepsis due to unspecified organism Sepsis acute organ dysfunction status: with acute organ dysfunction Severe sepsis acute organ dysfunction type: acute renal failure Acute renal failure type: unspecified Severe sepsis shock status: without septic shock Qualified Code(s): A41.9 - Sepsis, unspecified organism; R65.20 - Severe sepsis without septic shock; N17.9 - Acute kidney failure, unspecified Is this a current diagnosis for this admission?: Yes Plan: Etiology remains unknown: Acute respiratory infection vs less likely urinary tract infection vs Cdiff. Blood culture pending Urine culture pending Trending lactic acid: 3.0, 2.2, 0.9; resolved with IV fluids. Continue azithromycin and Ceftriaxone. Continuous IV fluids with IV bolus and event of hypotension. (2) Neutrophilic leukocytosis Is this a current diagnosis for this admission?: Yes Plan: Resolved with treatment as above. WBC 14.2 on admission -> 7.0. (3) Hypotension Qualifiers: Hypotension type: unspecified hypotension type Qualified Code(s): I95.9 - Hypotension, unspecified Is this a current diagnosis for this admission?: Yes Plan: Hypotension is fluid responsive. 55/34 on initial presentation. Pressures consistently >80/60 since. Suspect likely secondary to dehydration from recent medication adjustment Continue to hold lisinopril/HCTZ. Continue to bolus in the event of severe hypertension. Continue continuous IV fluids. (4) Shortness of breath Is this a current diagnosis for this admission?: Yes Plan: 100% O2 saturation on room air. Ddx: CAP vs atypical pneumonia vs COVID vs bronchitis vs COPD exacerbation less likely -Continue breathing treatments - Tx Azithromycin and Ceftriaxone Repeat CXR without changes from initial chest x-ray. Sputum culture pending Legionella urine AG pending Monitor O2 sats (5) Acute kidney injury Is this a current diagnosis for this admission?: Yes Plan: BUN 32, Cr 1.56 -> BUN 36, Cr 1.26 Ddx: Dehydration vs recent medication change vs Sepsis IVF as discussed above Avoid nephrotoxic medications Monitor daily BMP (6) UTI (urinary tract infection) Qualifiers: Urinary tract infection type: acute cystitis Hematuria presence: without hematuria Qualified Code(s): N30.00 - Acute cystitis without hematuria Is this a current diagnosis for this admission?: Yes Plan: Urine culture positive for gram negative rods. This is covered by ceftriaxone. No further attention needed at this time. (7) Nausea and vomiting Qualifiers: Vomiting type: unspecified Vomiting Intractability: non-intractable Qualified Code(s): R11.2 - Nausea with vomiting, unspecified Is this a current diagnosis for this admission?: Yes Plan: Since resolved. Utilize Zofran as needed. (8) Diarrhea Qualifiers: Diarrhea type: unspecified type Qualified Code(s): R19.7 - Diarrhea, unspecified Is this a current diagnosis for this admission?: Yes Plan: CT abdomen without acute findings. Hx of recent antibiotic use. C.diff pending. (9) Suspected COVID-19 virus infection Is this a current diagnosis for this admission?: Yes Plan: Hx SOB, nausea, vomiting and diarrhea. Elevated Fibrinogen and D-dimer. ESR, CRP pending. CXR and chest CT without acute findings. COVID pending Treatment otherwise as discussed above If continues to worsen consider implementing steroids, vitamin C, vitamin D, zinc and melatotin tx. (10) Bipolar disease, manic Qualifiers: Current episode severity: moderate Qualified Code(s): F31.12 - Bipolar disorder, current episode manic without psychotic features, moderate Is this a current diagnosis for this admission?: Yes Plan: Hx bipolar disorder. Currently exhibiting signs of manic episode. Recently rx'd lithium, though has not yet obtained medication. Hold lithium due to CAR. Initiate tx with Valproate and Seroquel. Psychiatry consult placed. 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 (12) Hypertension Qualifiers: Hypertension type: essential hypertension Qualified Code(s): I10 - Essential (primary) hypertension Is this a current diagnosis for this admission?: Yes Plan: With recent increase in lisinopril/HCTZ Potential cause of hypotension/dehydration Hold medication at this time Monitor BP closely (13) Pre-diabetes Is this a current diagnosis for this admission?: Yes Plan: Historically treated with Metformin. Hem A1c 5.7. Discontinue Metformin at this time. (14) COPD (chronic obstructive pulmonary disease) Qualifiers: COPD type: chronic bronchitis Chronic bronchitis type: simple Qualified Code(s): J41.0 - Simple chronic bronchitis Is this a current diagnosis for this admission?: Yes Plan: Hx COPD. Recently treated for COPD exacerbation 09/26/2020 in ED. Home medications include: Symbacort, requiring use q1hr over past week Implement breathing treatments as above Resume home therapy - Time Time Spent with patient: 15-24 minutes Medications reviewed and adjusted accordingly: Yes Anticipated Discharge Disposition: Home, Self Care Anticipated Discharge Timeframe: within 72 hours - -Undetermined
[2020-10-05] MEDS: ATORVASTATIN CALCIUM 40 MG TABLET PO SCH (21:52)
[2020-10-05] MEDS: VALPROATE SODIUM SYRUP 250 MG/5 ML UDCUP PO SCH (21:52)
[2020-10-05] MEDS: GUAIFENESIN 600 MG TABLET.SA PO SCH (21:53)
[2020-10-05] MEDS: QUETIAPINE FUMARATE 100 MG TABLET PO SCH (21:53)
[2020-10-05] MEDS: NYSTATIN CREAM 15 GM TP SCH (22:23)
[2020-10-06] MEDS: IPRATROPIUM/ALBUTEROL 0.5-2.5 MG/3 ML AMPUL NEB SCH ×4 (02:12→21:05)
[2020-10-06] MEDS: NORMAL SALINE 1000 ML 1,000 ML IV PRN (02:31)
[2020-10-06] MEDS: HEPARIN SOD (PORCINE) 5,000 UNIT/ML 1 ML VIAL SUBCUT SCH ×3 (05:16→21:21)
[2020-10-06] MEDS: GABAPENTIN 300 MG CAPSULE PO SCH ×3 (05:16→21:17)
[2020-10-06] MEDS: PANTOPRAZOLE SODIUM 20 MG TABLET.DR PO SCH (05:16)
[2020-10-06 06:56] LABS: HEMATOCRIT 34.3 % (36.0-47.0); MEAN CORPUSCULAR HEMOGLOBIN 29.2 pg (27.0-33.4); MEAN CORPUSCULAR HGB CONC 34.9 g/dL (32.0-36.0); MEAN CORPUSCULAR VOLUME 84 fl (80-97); PLATELET COUNT 210 10^3/uL (150-450); RED BLOOD COUNT 4.09 10^6/uL (3.72-5.28); WHITE BLOOD COUNT 3.9 10^3/uL (4.0-10.5)
[2020-10-06 07:14] LABS: ANION GAP 7 (5-19); BLOOD UREA NITROGEN 17 mg/dL (7-20); CALCIUM 8.9 mg/dL (8.4-10.2); CARBON DIOXIDE 24 mmol/L (22-30); CHLORIDE 114 mmol/L (98-107); GLUCOSE 81 mg/dL (75-110); POTASSIUM 4.7 mmol/L (3.6-5.0)
[2020-10-06] MEDS ORDERED: INFLUENZA QUAD (6MOS+) 2020-21 VAC 0.5 ML SYR IM ONE (08:00)
[2020-10-06] MEDS: LEVETIRACETAM 500 MG TABLET PO SCH ×2 (12:13→21:17)
[2020-10-06] MEDS: AZITHROMYCIN 250 MG TABLET PO SCH (12:13)
[2020-10-06] MEDS: GUAIFENESIN 600 MG TABLET.SA PO SCH ×2 (12:13→21:18)
[2020-10-06] MEDS: LIDOCAINE 5% (700 MG) TRANSDERMAL ADH..PATCH TP SCH (12:14)
[2020-10-06] MEDS: CEFTRIAXONE 1 GM/D5W RTU 1 GM/50 ML RTUPB IV SCH (12:14)
[2020-10-06] MEDS: NYSTATIN CREAM 15 GM TP SCH ×2 (12:16→21:20)
[2020-10-06] MEDS: FLUTICASONE/VILANTEROL 200-25 MCG/DOSE IH SCH (12:16)
--- NOTE | 2020-10-06 14:10 | PDOC PROGRESS REPORT ---
Subjective Progress Note for:: 10/06/20 Subjective:: Patient is resting in bed comfortably. Reports overall improvement in symptoms but continues to complain of chest heaviness and shortness of breath on exertion. O2 sat maintaining >96% on room air. She continues to feel anxious. She tells me that she has taken Seroquel in the past and this causes her to feel restless. Discussed with nurse. Reports no concerns. Psych has not been by to evaluate patient. Reason For Visit: SHORTNESS OF BREATH,SEPSIS,ACUTE KIDNEY INJURY Physical Exam Vital Signs: Temp Pulse Resp BP Pulse Ox 97.7 F 90 18 121/76 100 10/06/20 11:27 10/06/20 11:27 10/06/20 11:27 10/06/20 11:27 10/06/20 11:27 Intake & Output 10/05/20 10/06/20 10/07/20 06:59 06:59 06:59 Intake Total 2250 4920 458 Output Total 1200 3900 650 Balance 1050 1020 -192 Weight 91.4 kg 91.9 kg Additional comments: General appearance: PRESENT: cooperative, mild distress, obese. Head exam: PRESENT: atraumatic, normocephalic Eye exam: PRESENT: conjunctiva pink, EOMI. ABSENT: scleral icterus Mouth exam: PRESENT: dry mucosa, tongue midline Neck exam: PRESENT: full ROM. ABSENT: JVD, tenderness Respiratory exam: PRESENT: clear to auscultation carmen, symmetrical, unlabored, wheezes though greatly improved. ABSENT: rales, rhonchi, tachypnea Cardiovascular exam: PRESENT: tachycardia. ABSENT: diastolic murmur, systolic murmur Pulses: PRESENT: normal radial pulses GI/Abdominal exam: PRESENT: normal bowel sounds, soft. ABSENT: distended, firm, guarding, tenderness Rectal exam: PRESENT: deferred Extremities exam: PRESENT: full ROM. ABSENT: clubbing, pedal edema, tenderness Musculoskeletal exam: PRESENT: ambulatory, full ROM. ABSENT: deformity, dislocation Neurological exam: PRESENT: alert, awake, oriented to person, oriented to place, oriented to time, oriented to situation, CN II-XII grossly intact. ABSENT: motor sensory deficit Psychiatric exam: PRESENT: anxious, depressed, manic. ABSENT: suicidal ideation Focused psych exam: PRESENT: restlessness Skin exam: PRESENT: dry, intact, warm Results Laboratory Results: 10/06/20 06:35 10/06/20 06:35 10/06/20 10/06/20 06:35 06:35 WBC 3.9 L RBC 4.09 Hgb 12.0 Hct 34.3 L MCV 84 MCH 29.2 MCHC 34.9 RDW 13.0 Plt Count 210 Sodium 145.1 H Potassium 4.7 Chloride 114 H Carbon Dioxide 24 Anion Gap 7 BUN 17 Creatinine 0.65 Est GFR ( Amer) > 60 Glucose 81 Calcium 8.9 Magnesium 1.6 10/04/20 18:33 Clean Catch Midstream Urine Culture - Final Proteus Mirabilis 10/04/20 10/04/20 14:20 20:05 Troponin I < 0.012 < 0.012 NT-Pro-B Natriuret Pep 49 Impressions: Chest/Abdomen CTA 10/04/20 16:01 IMPRESSION: There is no aortic aneurysm or dissection. There is no major pulmonary embolus. Evaluation of the pulmonary arteries is limited. No acute findings in the thorax. Abdomen/Pelvis CT 10/04/20 16:15 IMPRESSION: 1. There is a prominent calcification in what may represent a calyceal diverticulum in the right kidney. 2. Uncomplicated left inguinal hernia. 3. Grade 1 anterolisthesis of L5 on S1. Chest X-Ray 10/05/20 01:00 IMPRESSION: Minimal basilar atelectasis. Findings are accentuated by low lung volumes. Assessment and Plan - Diagnosis (1) Sepsis Qualifiers: Sepsis type: sepsis due to unspecified organism Sepsis acute organ dysfunction status: with acute organ dysfunction Severe sepsis acute organ dysfunction type: acute renal failure Acute renal failure type: unspecified Severe sepsis shock status: without septic shock Qualified Code(s): A41.9 - Sepsis, unspecified organism; R65.20 - Severe sepsis without septic shock; N17.9 - Acute kidney failure, unspecified Is this a current diagnosis for this admission?: Yes Plan: Resolved. Likely secondary to pneumonia vs bacteriuria. Blood culture no growth 24hours. Continue azithromycin and Ceftriaxone. Stop IVF. (2) Neutrophilic leukocytosis Is this a current diagnosis for this admission?: Yes Plan: Resolved with treatment as above. WBC 14.2 on admission -> 7.0. (3) Hypotension Qualifiers: Hypotension type: unspecified hypotension type Qualified Code(s): I95.9 - Hypotension, unspecified Is this a current diagnosis for this admission?: Yes Plan: Resolved with fluids. BP consistently >120/70. Suspect likely secondary to dehydration from recent medication adjustment Continue to hold lisinopril/HCTZ. Discontinue IVF. (4) Shortness of breath Is this a current diagnosis for this admission?: Yes Plan: Improving with treatment. 100% O2 saturation on room air. Ddx: CAP vs atypical pneumonia vs COVID Cnt breathing treatments Cnt abx as above Sputum culture pending Legionella urine AG pending (5) Acute kidney injury Is this a current diagnosis for this admission?: Yes Plan: BUN 32, Cr 1.56 -> BUN 36, Cr 1.26 -> Resolved Likely secondary to dehydration vs SEPSIS. Discontinue IVF at this time. Monitor daily BMP (6) UTI (urinary tract infection) Qualifiers: Urinary tract infection type: acute cystitis Hematuria presence: without hematuria Qualified Code(s): N30.00 - Acute cystitis without hematuria Is this a current diagnosis for this admission?: Yes Plan: Urine culture positive for Proteus Mirabilis similar to +UC 09/26/2020 (tx'd with Keflex) Susceptible to Ceftriaxone. (7) Nausea and vomiting Qualifiers: Vomiting type: unspecified Vomiting Intractability: non-intractable Qualified Code(s): R11.2 - Nausea with vomiting, unspecified Is this a current diagnosis for this admission?: Yes Plan: Since resolved. Utilize Zofran as needed. (8) Diarrhea Qualifiers: Diarrhea type: unspecified type Qualified Code(s): R19.7 - Diarrhea, unspecified Is this a current diagnosis for this admission?: Yes Plan: CT abdomen without acute findings. Hx of recent antibiotic use. C.diff pending. (9) Suspected COVID-19 virus infection Is this a current diagnosis for this admission?: Yes Plan: Hx SOB, nausea, vomiting and diarrhea. Elevated Fibrinogen and D-dimer. ESR, CRP pending. CXR and chest CT without acute findings. COVID pending Treatment otherwise as discussed above If continues to worsen consider implementing steroids, vitamin C, vitamin D, zinc and melatotin tx. (10) Bipolar disease, manic Qualifiers: Current episode severity: moderate Qualified Code(s): F31.12 - Bipolar disorder, current episode manic without psychotic features, moderate Is this a current diagnosis for this admission?: Yes Plan: Hx bipolar disorder. Currently exhibiting signs of manic episode. Recently rx'd lithium, though has not yet obtained medication. Hold lithium due to CAR. Cnt Valproate treatment. Discontinue Seroquel. Psychiatry consult placed. 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 (12) Hypertension Qualifiers: Hypertension type: essential hypertension Qualified Code(s): I10 - Essential (primary) hypertension Is this a current diagnosis for this admission?: Yes Plan: With recent increase in lisinopril/HCTZ Potential cause of hypotension/dehydration Hold medication at this time Monitor BP closely (13) Pre-diabetes Is this a current diagnosis for this admission?: Yes Plan: Historically treated with Metformin. Hem A1c 5.7. Discontinue Metformin at this time. (14) COPD (chronic obstructive pulmonary disease) Qualifiers: COPD type: chronic bronchitis Chronic bronchitis type: simple Qualified Code(s): J41.0 - Simple chronic bronchitis Is this a current diagnosis for this admission?: Yes Plan: Hx COPD. Recently treated for COPD exacerbation 09/26/2020 in ED. Home medications include: Symbacort, requiring use q1hr over past week Implement breathing treatments as above Resume home therapy - Time Time Spent with patient: 15-24 minutes Medications reviewed and adjusted accordingly: Yes Anticipated Discharge Disposition: Home, Self Care Anticipated Discharge Timeframe: within 24 hours
[2020-10-06] MEDS ORDERED: GUAIFENESIN SYRP 200 MG/10 ML UDC PO PRN (17:12)
[2020-10-06] MEDS: ATORVASTATIN CALCIUM 40 MG TABLET PO SCH (21:18)
[2020-10-06] MEDS: VALPROATE SODIUM SYRUP 250 MG/5 ML UDCUP PO SCH (21:19)
[2020-10-06] MEDS ORDERED: PHARMACY COMMUNICATION ORDER MC SCH (22:00)
[2020-10-06] MEDS ORDERED: MELATONIN 3 MG TABLET PO SCH (22:00)
[2020-10-07] MEDS: IPRATROPIUM/ALBUTEROL 0.5-2.5 MG/3 ML AMPUL NEB SCH ×3 (02:32→13:59)
[2020-10-07] MEDS: ACETAMINOPHEN 325 MG TABLET PO PRN (04:34)
[2020-10-07 06:01] LABS: HEMATOCRIT 33.3 % (36.0-47.0); HEMOGLOBIN 11.7 g/dL (12.0-15.5); MEAN CORPUSCULAR HEMOGLOBIN 29.2 pg (27.0-33.4); MEAN CORPUSCULAR HGB CONC 35.3 g/dL (32.0-36.0); MEAN CORPUSCULAR VOLUME 83 fl (80-97); PLATELET COUNT 227 10^3/uL (150-450); RED BLOOD COUNT 4.02 10^6/uL (3.72-5.28); RED CELL DISTRIBUTION WIDTH 12.6 % (11.5-14.0); WHITE BLOOD COUNT 6.2 10^3/uL (4.0-10.5)
[2020-10-07 06:15] LABS: ANION GAP 13 (5-19); BLOOD UREA NITROGEN 20 mg/dL (7-20); CALCIUM 9.3 mg/dL (8.4-10.2); CARBON DIOXIDE 23 mmol/L (22-30); CHLORIDE 104 mmol/L (98-107); GLUCOSE 90 mg/dL (75-110); POTASSIUM 4.4 mmol/L (3.6-5.0)
--- NOTE | 2020-10-07 06:35 | PSYCHOLOGICAL NOTE ---
Psych Note - Psych Note Date seen by psych provider: 10/06/20 Time seen by psych provider: 19:15 Psych Note: Reason for Consult: Manic Medication recommendations per [facility]'s contact psychiatrst are as folloes Continue Depaoke 500mg twice daily Add Buspar 5mg twice daily Impression/Plan: patient is cleared from acute psychiatric services. Patient and clinician discussed the patient should continue with current medication recommendations and to not mix with prescriptions she was planing to [facility] picker just prior to her arrival to [facility] ED. was consulted on the care and management oft his patient.
[2020-10-07] MEDS: HEPARIN SOD (PORCINE) 5,000 UNIT/ML 1 ML VIAL SUBCUT SCH (06:44)
[2020-10-07] MEDS: PANTOPRAZOLE SODIUM 20 MG TABLET.DR PO SCH (06:44)
[2020-10-07] MEDS: GABAPENTIN 300 MG CAPSULE PO SCH (06:44)
--- NOTE | 2020-10-07 07:59 | CDI QUERY ---
<NAMITA PAN - Last Filed: 10/07/20 07:50> CDI Query CDI Review: Dear Provider, Please clarify and document in progress notes / discharge summary if you agree: *(coders can not capture a diagnosis if by "vs") SEPSIS likely due to combination ATYPICAL PNEUMONIA and UTI? SEPSIS likely due to PNEUMONIA? ATYPICAL? CAP? HAP? SEPSIS likely due to UTI? Clinical finding: sepsis due to pneumonia vs respiratory infection vs covid ... sepsis due to pneumonia vs uti sob atypical? CAP? Thanks, Namita Pan, RUBENS [phone] <ARINA DAN - Last Filed: 10/07/20 19:08> CDI Query CDI Review: SEPSIS likely due to UTI. Will clarify in document. Thank you. Agree with Query: Yes
[2020-10-07] MEDS ORDERED: MAGNESIUM SULFATE/D5W 1 GM/100 ML RTUPB IV ONE (08:30)
[2020-10-07] MEDS: GUAIFENESIN 600 MG TABLET.SA PO SCH (09:41)
[2020-10-07] MEDS: LEVETIRACETAM 500 MG TABLET PO SCH (09:41)
[2020-10-07] MEDS: AZITHROMYCIN 250 MG TABLET PO SCH (09:43)
[2020-10-07] MEDS: NYSTATIN CREAM 15 GM TP SCH (09:43)
[2020-10-07] MEDS: FLUTICASONE/VILANTEROL 200-25 MCG/DOSE IH SCH (09:44)
[2020-10-07] MEDS: LIDOCAINE 5% (700 MG) TRANSDERMAL ADH..PATCH TP SCH (09:51)
[2020-10-07] MEDS ORDERED: BUSPIRONE HCL 10 MG TABLET PO SCH (10:00)
[2020-10-07] MEDS: CEFTRIAXONE 1 GM/D5W RTU 1 GM/50 ML RTUPB IV SCH (10:04)
[2020-10-07 12:53] VITALS: BP 124/86
--- NOTE | 2020-10-07 19:49 | PDOC DISCHARGE SUMMARY ---
Impression - Admit/DC Date/PCP Admission Date/Primary Care Provider: 10/04/20 18:12 IVONNE CORBIN NP Discharge Date: 10/07/20 - Discharge Diagnosis (1) Sepsis Is this a current diagnosis for this admission?: Yes (2) Neutrophilic leukocytosis Is this a current diagnosis for this admission?: Yes (3) Hypotension Is this a current diagnosis for this admission?: Yes (4) Shortness of breath Is this a current diagnosis for this admission?: Yes (5) Acute kidney injury Is this a current diagnosis for this admission?: Yes (6) UTI (urinary tract infection) Is this a current diagnosis for this admission?: Yes (7) Nausea and vomiting Is this a current diagnosis for this admission?: Yes (8) Diarrhea Is this a current diagnosis for this admission?: Yes (9) Suspected COVID-19 virus infection Is this a current diagnosis for this admission?: Yes (10) Bipolar disease, manic Is this a current diagnosis for this admission?: Yes (11) History of seizure Is this a current diagnosis for this admission?: Yes (12) Hypertension Is this a current diagnosis for this admission?: Yes (13) Pre-diabetes Is this a current diagnosis for this admission?: Yes (14) COPD (chronic obstructive pulmonary disease) Is this a current diagnosis for this admission?: Yes - Additional Information Resuscitation Status: Full Code Discharge Diet: Diabetic Discharge Activity: Activity As Tolerated, Slowly Increase Activity Referrals: IVONNE CORBIN NP [Primary Care Provider] - 10/19/20 10:45 am Prescriptions: Ipratropium/Albuterol Sulfate [Duoneb 3 ml Ampul] 3 ml NEB RTQ6 #5 vial.neb Cyclobenzaprine HCl [Flexeril 10 mg Tablet] 10 mg PO QHS #8 tablet Lidocaine [Lidoderm 5% (700 mg) Transdermal Patch] 1 patch TP DAILY #10 adh..patch Home Medications: Levetiracetam [Keppra] 1,000 mg PO BID #60 tablet 08/11/20 Albuterol Sulfate [Albuterol Sulfate Hfa] 2 puff IH Q4HP PRN 10/04/20 Albuterol Sulfate [Proventil 0.5% Neb 2.5 mg/0.5 ml Vial.neb] 2.5 mg NEB Q4HP PRN 10/04/20 Atorvastatin Calcium [Lipitor 40 mg Tablet] 40 mg PO QHS 10/04/20 Budesonide/Formoterol Fumarate [Symbicort HFA 160-4.5 mcg Inhaler 6 gm] 2 puff IH BID 10/04/20 Gabapentin 300 mg PO Q8 10/04/20 Omeprazole 40 mg PO Q6AM 10/04/20 Cyclobenzaprine HCl [Flexeril 10 mg Tablet] 10 mg PO QHS #8 tablet 10/07/20 Ipratropium/Albuterol Sulfate [Duoneb 3 ml Ampul] 3 ml NEB RTQ6 #5 vial.neb 10/07/20 Lidocaine [Lidoderm 5% (700 mg) Transdermal Patch] 1 patch TP DAILY #10 adh..patch 10/07/20 History of Present Illiness History of Present Illness: As per admitting HPI 10/04/2020 "DAWIT MCCARTHY is a 55 year old female with past medical history of HTN, DMII, COPD, bipolar disorder, chronic back pain, arthritis who presents to the ED with concerns regarding episode of light headedness just prior to arrival. Pt was walking across parking lot when she became light headed and felt as though the world was spinning. She was able to move to a seated position without falling and reported to the ED for further evaluation. She further reports x1 week history of increasing SOB with associated increase on exertion and while lying flat. Of note she was evaluated and treated in the ED on 09/28/2020 regarding COPD exacerbation. This was treated with prednisone and breathing treatments in outpatient setting without improvement of symptoms. Additionally she was found to have UTI tx'd with Keflex. Reports recent increase in Lisinopril and HCTZ by PCP x4 days ago. Additionally she has hx of bipolar disorder with multiple failed suicide attempts. She was recently marva by psych who rx'd lithium though pt has not been able to obtain medication and there for has not taken any yet. Upon further questioning reports associated subjective fever, chills, "chest heaviness", productive cough, palpitations, diarrhea, nausea, vomiting and abdominal pain. Evaluation in the ED patient is hypotensive with initial BP 50/30, this improved to 80/60 with 1L NS. She is afebrile and tachycardic. CBC significant for neutrophilic leukocytosis (14.2). Elevated D-dimer and fibrinogen on coagulation studies. Evidence of CAR on chemestries with BUN 32 and Creatinine 1.56. UA with small blood and large leukocyte esterase. CXR, chest CT and CT abdomen without acute findings. She was treated with IV fluids, single dose of levofloxacin and referred to the hospitalist service for further evaluation and treatment." Hospital Course Hospital Course: (1) Sepsis Resolved. Likely secondary to bacteriuria. Blood culture no growth 24hours. Completed 3 days of antibiotics. (2) Neutrophilic leukocytosis Resolved with treatment as above. WBC 14.2 on admission -> 7.0. (3) Hypotension Resolved with fluids. BP consistently >120/70. Suspect likely secondary to dehydration from recent medication adjustment Continue to hold lisinopril/HCTZ in outpatient as well. (4) Shortness of breath Resolved with treatment. 100% O2 saturation on room air. Likely from URI. COVID negative. Dc home with rx for duo-neb solution. (5) Acute kidney injury BUN 32, Cr 1.56 -> BUN 36, Cr 1.26 -> Resolved with IVF Likely secondary to dehydration (6) UTI (urinary tract infection) Urine culture positive for Proteus Mirabilis similar to +UC 09/26/2020 (tx'd with Keflex) Susceptible to Ceftriaxone. Ceftriaxone x3 days. No further tx indicated at this time. (7) Nausea and vomiting Since resolved. Tx'd Zofran as needed. (8) Diarrhea CT abdomen without acute findings. Resolved. (9) Suspected COVID-19 virus infection COVID-19 negative (10) Bipolar disease, manic Hx bipolar disorder, presented exhibiting signs of manic episode. Recently rx'd lithium, though has not yet obtained medication. Held lithium due to CAR. Initiated Valproate treatment over course. Pt to continue treatment as rx'd by outpatient psych. 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 (12) Hypertension With recent increase in lisinopril/HCTZ Potential cause of hypotension/dehydration Continue to hold medication at this time. (13) Pre-diabetes Historically treated with Metformin. Hem A1c 5.7. Discontinue Metformin at this time. (14) COPD (chronic obstructive pulmonary disease) Hx COPD. Recently treated for COPD exacerbation 09/26/2020 in ED. Home medications include: Symbacort, requiring use q1hr over past week Implement breathing treatments as above Continue home therapy Physical Exam Vital Signs: Temp Pulse Resp BP Pulse Ox 97.7 F 73 17 124/86 H 96 10/07/20 13:11 10/07/20 13:11 10/07/20 13:11 10/07/20 13:11 10/07/20 13:11 Intake & Output 10/06/20 10/07/20 10/08/20 06:59 06:59 06:59 Intake Total 4920 970 Output Total 3900 650 Balance 1020 320 Weight 91.9 kg 88.6 kg Additional comments: General appearance: PRESENT: cooperative, mild distress, obese. Head exam: PRESENT: atraumatic, normocephalic Eye exam: PRESENT: conjunctiva pink, EOMI. ABSENT: scleral icterus Mouth exam: PRESENT: dry mucosa, tongue midline Neck exam: PRESENT: full ROM. ABSENT: JVD, tenderness Respiratory exam: PRESENT: clear to auscultation carmen, symmetrical, unlabored, ABSENT: rales, rhonchi, tachypnea, wheezes Cardiovascular exam: PRESENT: tachycardia. ABSENT: diastolic murmur, systolic murmur Pulses: PRESENT: normal radial pulses GI/Abdominal exam: PRESENT: normal bowel sounds, soft. ABSENT: distended, firm, guarding, tenderness Rectal exam: PRESENT: deferred Extremities exam: PRESENT: full ROM. ABSENT: clubbing, pedal edema, tenderness Musculoskeletal exam: PRESENT: ambulatory, full ROM. ABSENT: deformity, dislocation Neurological exam: PRESENT: alert, awake, oriented to person, oriented to place, oriented to time, oriented to situation, CN II-XII grossly intact. ABSENT: motor sensory deficit Psychiatric exam: PRESENT: anxious, depressed, manic. ABSENT: suicidal ideation Focused psych exam: PRESENT: restlessness Skin exam: PRESENT: dry, intact, warm Results Laboratory Results: WBC 6.2 10^3/uL (4.0-10.5) 10/07/20 05:15 RBC 4.02 10^6/uL (3.72-5.28) 10/07/20 05:15 Hgb 11.7 g/dL (12.0-15.5) L 10/07/20 05:15 Hct 33.3 % (36.0-47.0) L 10/07/20 05:15 MCV 83 fl (80-97) 10/07/20 05:15 MCH 29.2 pg (27.0-33.4) 10/07/20 05:15 MCHC 35.3 g/dL (32.0-36.0) 10/07/20 05:15 RDW 12.6 % (11.5-14.0) 10/07/20 05:15 Plt Count 227 10^3/uL (150-450) 10/07/20 05:15 Lymph % (Auto) 24.9 % (13-45) 10/04/20 14:20 [place] % (Auto) 8.7 % (3-13) 10/04/20 14:20 Eos % (Auto) 2.5 % (0-6) 10/04/20 14:20 Baso % (Auto) 0.6 % (0-2) 10/04/20 14:20 Absolute Neuts (auto) 9.0 10^3/uL (1.7-8.2) H 10/04/20 14:20 Absolute Lymphs (auto) 3.5 10^3/uL (0.5-4.7) 10/04/20 14:20 Absolute Monos (auto) 1.2 10^3/uL (0.1-1.4) 10/04/20 14:20 Absolute Eos (auto) 0.4 10^3/uL (0.0-0.6) 10/04/20 14:20 Absolute Basos (auto) 0.1 10^3/uL (0.0-0.2) 10/04/20 14:20 Seg Neutrophils % 63.3 % (42-78) 10/04/20 14:20 ESR 11 mm/hr (0-30) 10/04/20 22:39 PT 12.9 SEC (11.4-15.4) 10/04/20 14:20 INR 0.96 10/04/20 14:20 APTT 26.7 SEC (23.5-35.8) 10/04/20 14:20 Fibrinogen 509 mg/dL (209-497) H 10/04/20 14:20 D-Dimer 1.71 ug/mL (0.00-0.50) H 10/04/20 14:20 Sodium 139.5 mmol/L (137-145) 10/07/20 05:15 Potassium 4.4 mmol/L (3.6-5.0) 10/07/20 05:15 Chloride 104 mmol/L (98-107) 10/07/20 05:15 Carbon Dioxide 23 mmol/L (22-30) 10/07/20 05:15 Anion Gap 13 (5-19) 10/07/20 05:15 BUN 20 mg/dL (7-20) 10/07/20 05:15 Creatinine 0.64 mg/dL (0.52-1.25) 10/07/20 05:15 Est GFR ( Amer) > 60 (>60) 10/07/20 05:15 Est GFR (MDRD) Non-Af > 60 (>60) 10/07/20 05:15 Glucose 90 mg/dL (75-110) 10/07/20 05:15 POC Glucose 90 mg/dL (70-110) 10/06/20 07:37 Lactic Acid 0.9 mmol/L (0.7-2.1) 10/05/20 12:13 Calcium 9.3 mg/dL (8.4-10.2) 10/07/20 05:15 Magnesium 1.3 mg/dL (1.6-2.3) L 10/07/20 05:15 Total Bilirubin 0.7 mg/dL (0.2-1.3) 10/04/20 14:20 Direct Bilirubin 0.1 mg/dL (0.0-0.4) 10/04/20 14:20 Neonat Total Bilirubin Not Reportable 10/04/20 14:20 Neonat Direct Bilirubin Not Reportable 10/04/20 14:20 Neonat Indirect Bili Not Reportable 10/04/20 14:20 AST 20 U/L (14-36) 10/04/20 14:20 ALT 26 U/L (<35) 10/04/20 14:20 Alkaline Phosphatase 116 U/L (38-126) 10/04/20 14:20 Lactate Dehydrogenase 216 U/L (120-246) 10/04/20 14:20 Troponin I < 0.012 ng/mL 10/04/20 20:05 C-Reactive Protein 9.0 mg/L (<10.0) 10/04/20 14:20 NT-Pro-B Natriuret Pep 49 pg/mL (<125) 10/04/20 14:20 Total Protein 8.0 g/dL (6.3-8.2) 10/04/20 14:20 Albumin 4.7 g/dL (3.5-5.0) 10/04/20 14:20 TSH 1.39 uIU/mL (0.47-4.68) 10/05/20 02:52 Free T4 1.34 ng/dL (0.78-2.19) 10/05/20 02:52 Urine Color YELLOW 10/04/20 18:33 Urine Appearance CLOUDY 10/04/20 18:33 Urine pH 5.0 (5.0-9.0) 10/04/20 18:33 Ur Specific [place] > 1.060 10/04/20 18:33 Urine Protein NEGATIVE mg/dL (NEGATIVE) 10/04/20 18:33 Urine Glucose (UA) NEGATIVE mg/dL (NEGATIVE) 10/04/20 18:33 Urine Ketones NEGATIVE mg/dL (NEGATIVE) 10/04/20 18:33 Urine Blood SMALL (NEGATIVE) H 10/04/20 18:33 Urine Nitrite NEGATIVE (NEGATIVE) 10/04/20 18:33 Urine Bilirubin NEGATIVE (NEGATIVE) 10/04/20 18:33 Urine Urobilinogen NEGATIVE mg/dL (<2.0) 10/04/20 18:33 Ur Leukocyte Esterase LARGE (NEGATIVE) H 10/04/20 18:33 Urine WBC (Auto) 65 /HPF 10/04/20 18:33 Urine RBC (Auto) 73 /HPF 10/04/20 18:33 Urine Bacteria (Auto) 1+ /HPF 10/04/20 18:33 Squamous Epi Cells Auto 34 /HPF 10/04/20 18:33 U Non-Squamous Epis Auto 1 /HPF 10/04/20 18:33 Urine Mucus (Auto) RARE /LPF 10/04/20 18:33 Urine Ascorbic Acid NEGATIVE (NEGATIVE) 10/04/20 18:33 COVID-19 Source See comment 10/04/20 18:54 COVID-19 (GERALD) Not Detected (Not Detect) 10/04/20 18:54 Influenza A (Rapid) NEGATIVE (NEGATIVE) 10/04/20 15:23 Influenza B (Rapid) NEGATIVE (NEGATIVE) 10/04/20 15:23 10/04/20 10/04/20 14:20 20:05 Troponin I < 0.012 < 0.012 NT-Pro-B Natriuret Pep 49 Impressions: Chest X-Ray 10/04/20 14:03 IMPRESSION: NO ACUTE RADIOGRAPHIC FINDING IN THE CHEST. Chest/Abdomen CTA 10/04/20 16:01 IMPRESSION: There is no aortic aneurysm or dissection. There is no major pulmonary embolus. Evaluation of the pulmonary arteries is limited. No acute findings in the thorax. Abdomen/Pelvis CT 10/04/20 16:15 IMPRESSION: 1. There is a prominent calcification in what may represent a calyceal diverticulum in the right kidney. 2. Uncomplicated left inguinal hernia. 3. Grade 1 anterolisthesis of L5 on S1. Chest X-Ray 10/05/20 01:00 IMPRESSION: Minimal basilar atelectasis. Findings are accentuated by low lung volumes. Plan Time Spent: Greater than 30 Minutes Stroke Is this a Stroke Patient?: No Acute Heart Failure Is this a Heart Failure Patient?: No
== END 2020-10-07 14:00 | disposition home or self-care (01) | DRG 872 ==
LOC: ER 13:50 → EH 18:12 → ICU 21:08 → 3N 10-05 20:59 → 3W 10-06 14:28
PROVIDERS: ADMIT Hospitalist; ATTEND Physician Assistant
DX: A41.9 Sepsis, unspecified organism (principal); N17.9 Acute kidney failure, unspecified; N30.00 Acute cystitis without hematuria; F31.12 Bipolar disorder, current episode manic without psychotic features, moderate; I95.9 Hypotension, unspecified; R19.7 Diarrhea, unspecified; I10 Essential (primary) hypertension; R73.03 Prediabetes; K21.9 Gastro-esophageal reflux disease without esophagitis; F41.1 Generalized anxiety disorder; R65.20 Severe sepsis without septic shock; E86.0 Dehydration; J41.0 Simple chronic bronchitis; B96.4 Proteus (mirabilis) (morganii) as the cause of diseases classified elsewhere; Z20.828 Contact with and (suspected) exposure to other viral communicable diseases; Z87.820 Personal history of traumatic brain injury; Z82.49 Family history of ischemic heart disease and other diseases of the circulatory system
CPT/HCPCS: 36415; 71045; 71275; 74177; 80048; 80053; 81001; 82962; 83605; 83615; 83735; 83880; 84439; 84443; 84484; 85025; 85027; 85379; 85384; 85610; 85652; 85730; 86140; 87040; 87070; 87086; 87088; 87186; 87205; 87635; 87804; 94640; 96361; 96374; 99285; C9803; J0696; J1644; J1953; J1956; J2405; J3475; J3490; J7030

== ENCOUNTER 2020-10-22 11:55 | Emergency (ER) | payer MEDICAID ==
[2020-10-22 12:03] VITALS: BP 115/67
--- NOTE | 2020-10-22 12:26 | ER Document Report ---
ED Medical Screen (RME) - General Chief Complaint: Flu Symptoms Stated Complaint: FEVER Time Seen by Provider: 10/22/20 12:16 Primary Care Provider: IVONNE CORBIN NP [Primary Care Provider] - Follow up as needed Notes: Patient is a 55-year-old female presents emergency department with a fever of 102 and a cough. Patient took Tylenol this morning. Patient is under investigation for COVID-19. She was tested yesterday by her primary care provider. Exam: clear lung sounds I have greeted and performed a rapid initial assessment of this patient. A comprehensive ED assessment and evaluation of the patient, analysis of test results and completion of medical decision making process will be conducted by an additional ED providers. TRAVEL OUTSIDE OF THE [place] IN LAST 30 DAYS: No - Related Data Allergies/Adverse Reactions: No Known Allergies Allergy (Verified 10/22/20 12:07) Past Medical History - Past Medical History Cardiac Medical History: Reports: Hx Hypertension Pulmonary Medical History: Reports: Hx COPD, Hx Pneumonia - Recurrent walking pneumonia Denies: Hx Bronchitis Neurological Medical History: Reports: Hx Seizures Endocrine Medical History: Reports: Hx Diabetes Mellitus Type 2. Denies: Hx Hyperthyroidism, Hx Hypothyroidism GI Medical History: Reports: Hx Gastroesophageal Reflux Disease Musculoskeltal Medical History: Reports Hx Arthritis Psychiatric Medical History: Reports: Hx Attention Deficit Hyperactivity Disorder, Hx Bipolar Disorder, Hx Depression Infectious Medical History: Denies: Hx MRSA, Hx VRE Past Surgical History: Reports: Hx Cholecystectomy, Hx Hysterectomy, Hx Orthopedic Surgery Physical Exam - Vital signs Vitals: Temp Pulse Resp BP Pulse Ox 98.0 F 82 16 115/67 98 10/22/20 12:01 10/22/20 12:01 10/22/20 12:01 10/22/20 12:01 10/22/20 12:01 Course - Vital Signs Vital signs: Temp Pulse Resp BP Pulse Ox 98.0 F 82 16 115/67 98 10/22/20 12:01 10/22/20 12:01 10/22/20 12:01 10/22/20 12:01 10/22/20 12:01 Doctor's Discharge - Discharge Referrals: IVONNE CORBIN NP [Primary Care Provider] - Follow up as needed
[2020-10-22 13:13] LABS: ABSOLUTE EOSINOPHILS # (AUTO) 0.4 10^3/uL (0.0-0.6); ABSOLUTE LYMPHOCYTES (AUTO) 1.6 10^3/uL (0.5-4.7); ABSOLUTE MONOCYTES (AUTO) 0.6 10^3/uL (0.1-1.4); ABSOLUTE NEUT (AUTO) 4.8 10^3/uL (1.7-8.2); BASOPHILS % (AUTO) 0.5 % (0-2); EOSINOPHILS % (AUTO) 5.5 % (0-6); HEMATOCRIT 39.2 % (36.0-47.0); HEMOGLOBIN 13.2 g/dL (12.0-15.5); LYMPHOCYTES % (AUTO) 21.7 % (13-45); MEAN CORPUSCULAR HEMOGLOBIN 28.2 pg (27.0-33.4); MEAN CORPUSCULAR HGB CONC 33.8 g/dL (32.0-36.0); MEAN CORPUSCULAR VOLUME 83 fl (80-97); MONOCYTES % (AUTO) 8.4 % (3-13); PLATELET COUNT 401 10^3/uL (150-450); RED CELL DISTRIBUTION WIDTH 13.2 % (11.5-14.0); SEGMENTED NEUTROPHILS % (AUTO) 63.9 % (42-78); TOTAL CELLS COUNTED % (AUTO) 100 %; WHITE BLOOD COUNT 7.5 10^3/uL (4.0-10.5)
[2020-10-22 13:30] LABS: ALBUMIN 4.2 g/dL (3.5-5.0); ALKALINE PHOSPHATASE 92 U/L (38-126); ANION GAP 11 (5-19); ASPARTATE AMINO TRANSFERASE 19 U/L (14-36); BILIRUBIN,DIRECT 0.1 mg/dL (0.0-0.4); BILIRUBIN,TOTAL 0.6 mg/dL (0.2-1.3); BLOOD UREA NITROGEN 23 mg/dL (7-20); CALCIUM 10.2 mg/dL (8.4-10.2); CARBON DIOXIDE 22 mmol/L (22-30); CHLORIDE 104 mmol/L (98-107); GLUCOSE 112 mg/dL (75-110); POTASSIUM 4.4 mmol/L (3.6-5.0); TOTAL PROTEIN 7.1 g/dL (6.3-8.2)
--- NOTE | 2020-10-22 13:47 | RADIOLOGY REPORT (SQ) ---
EXAM DESCRIPTION: CHEST SINGLE VIEW IMAGES COMPLETED DATE/TIME: 10/22/2020 1:31 pm REASON FOR STUDY: cough; fever x2 days COMPARISON: 10/05/2020 TECHNIQUE: Single frontal radiographic view of the chest acquired. NUMBER OF VIEWS: One view. LIMITATIONS: None. FINDINGS: LUNGS AND PLEURA: No pneumothorax. No consolidation or pleural effusion. MEDIASTINUM AND HILAR STRUCTURES: Stable. HEART AND VASCULAR STRUCTURES: Stable. BONES: No acute findings. HARDWARE: None in the chest. OTHER: Similar metallic BB noted over the upper chest. Right shoulder arthroplasty hardware again no cali. IMPRESSION: NO ACUTE FINDINGS. TECHNICAL DOCUMENTATION: JOB ID: [id number] [id number] 2010 [employer]- All Rights Reserved Reading location - IP/workstation name: [employer]
[2020-10-22] MEDS ORDERED: DOXYCYCLINE HYCLATE 100 MG TABLET PO ONE (14:37)
[2020-10-22] MEDS ORDERED: NORMAL SALINE 1000 ML 1,000 ML IV ONE (14:37)
[2020-10-22] MEDS ORDERED: ONDANSETRON 4 MG TAB.RAPDIS PO ONE (14:37)
--- NOTE | 2020-10-22 14:37 | ER Document Report ---
ED General - General Chief Complaint: Flu Symptoms Stated Complaint: FEVER Time Seen by Provider: 10/22/20 12:16 Primary Care Provider: IVONNE CORBIN NP [Primary Care Provider] - Follow up as needed Notes: HPI: 55-year-old female that presents today with 2 to 3 days of body aches, cough, and congestion. She denies chest pain, headache, or neck stiffness. Vomiting x1 and diarrhea x1. She denies any abdominal pain, calf pain, lower extremity edema. Patient saw the primary care physician yesterday and had a Covid and influenza test with results pending. History of COPD. ROS: See HPI All other review of systems reviewed and otherwise negative Reviewed vital signs and nursing note as charted by RN. PHYSICAL EXAM: CONSTITUTIONAL: Alert and oriented and responds appropriately to questions. Well-appearing; well-nourished HEAD: Normocephalic; atraumatic EYES: PERRL; Conjunctivae clear, sclerae non-icteric ENT: Normal nose; minimal bilateral nasal rhinorrhea; moist mucous membranes; pharynx without lesions noted NECK: Supple without meningismus; non-tender; no cervical lymphadenopathy, no masses CARD: Regular rate and rhythm; no murmurs; symmetric distal pulses RESP: Normal chest excursion without splinting or tachypnea; breath sounds clear and equal bilaterally; no wheezes, no rhonchi, no rales ABD/GI: Normal bowel sounds; elevated BMI; soft, nontender to palpation to all 4 quadrants of the abdomen BACK: The back appears normal and is non-tender to palpation EXT: Normal ROM in all joints; non-tender to palpation; no edema SKIN: No acute lesions noted NEURO: CN 2-12 intact; 5/5 bilateral upper and lower extremity strength with sensation intact to light touch PSYCH: The patient's mood and manner are appropriate. Grooming and personal hygiene are appropriate. TRAVEL OUTSIDE OF THE [place] IN LAST 30 DAYS: No - Related Data Allergies/Adverse Reactions: No Known Allergies Allergy (Verified 10/22/20 12:07) Past Medical History - Social History Smoking Status: Never Smoker Family History: Hypertension - Past Medical History Cardiac Medical History: Reports: Hx Hypertension Pulmonary Medical History: Reports: Hx COPD, Hx Pneumonia - Recurrent walking pneumonia Denies: Hx Bronchitis Neurological Medical History: Reports: Hx Seizures Endocrine Medical History: Reports: Hx Diabetes Mellitus Type 2. Denies: Hx Hyperthyroidism, Hx Hypothyroidism GI Medical History: Reports: Hx Gastroesophageal Reflux Disease Musculoskeletal Medical History: Reports Hx Arthritis Psychiatric Medical History: Reports: Hx Attention Deficit Hyperactivity Disorder, Hx Bipolar Disorder, Hx Depression Infectious Medical History: Denies: Hx MRSA, Hx VRE Past Surgical History: Reports: Hx Cholecystectomy, Hx Hysterectomy, Hx Orthopedic Surgery Physical Exam - Vital signs Vitals: Temp Pulse Resp BP Pulse Ox 98.0 F 82 16 115/67 98 10/22/20 12:01 10/22/20 12:01 10/22/20 12:01 10/22/20 12:01 10/22/20 12:01 Course - Re-evaluation Re-evalutation: 10/22/20 14:34 Given the above history and physical examination, an x-ray of the chest and basic labs and blood cultures were ordered. Patient is afebrile here with no antipyretics this morning. Patient has not vomited here. X-ray of the chest is unremarkable for an obvious infiltrate. Given the possibility of coronavirus with a history of COPD I will provide a dose of Decadron and place the patient on a short course of doxycycline with strict return precautions. Given the lack of any chest pain, calf pain, tachycardia or hypoxia, I do believe PE and ACS to be unlikely. - Vital Signs Vital signs: Temp Pulse Resp BP Pulse Ox 98.0 F 82 16 115/67 98 10/22/20 12:01 10/22/20 12:01 10/22/20 12:01 10/22/20 12:01 10/22/20 12:01 - Laboratory Result Diagrams: 10/22/20 12:25 10/22/20 12:25 Laboratory results interpreted by me: 10/22/20 12:25 BUN 23 H Glucose 112 H Discharge - Discharge Clinical Impression: Cough Fever Qualifiers: Fever type: unspecified Qualified Code(s): R50.9 - Fever, unspecified Condition: Good Disposition: HOME, SELF-CARE Instructions: COVID-19 Guidance for Persons Under Investigation Additional Instructions: Come back immediately for any worsening cough, shortness of breath, persistent vomiting or diarrhea, weakness or numbness, or any other acute problems. Please take the antibiotics as prescribed as well as the nausea medications as needed. Please follow-up with the primary care physician. Quarantine yourself until y our results have returned. Prescriptions: Doxycycline Hyclate 100 mg PO BID #14 tablet. Ondansetron [Zofran Odt 4 mg Tablet] 1 tab PO Q6H #15 tab.kaye Referrals: IVONNE CORBIN, [employer] COORDINATOR [Primary Care Provider] - Follow up as needed
== END 2020-10-22 15:55 | disposition home or self-care (01) ==
LOC: ER 11:55
DX: R05 Cough (principal); R50.9 Fever, unspecified; M79.10 Myalgia, unspecified site; R11.10 Vomiting, unspecified; R19.7 Diarrhea, unspecified; E11.9 Type 2 diabetes mellitus without complications; I10 Essential (primary) hypertension; Z90.49 Acquired absence of other specified parts of digestive tract; Z90.710 Acquired absence of both cervix and uterus
CPT/HCPCS: 99284; 36415; 87040; 85025; 80053; 71045; J3490; S0119

== ENCOUNTER 2020-10-23 10:28 | Observation (INO) | payer MEDICAID ==
--- NOTE | 2020-10-23 11:01 | ER Document Report ---
ED General - General Chief Complaint: Dizziness Stated Complaint: DIZZINESS Time Seen by Provider: 10/23/20 10:49 Primary Care Provider: IVONNE CORBIN NP [Primary Care Provider] - Follow up as needed Notes: HPI: 55-year-old female with past medical history as recorded with some intermittent fevers and body aches seen by the primary care physician as well as by myself yesterday. She had not taken antipyretics and was afebrile yesterday. X-ray of the chest showed no obvious infiltrate. Normal white blood cell count. Patient was satting well on room air. She does have a history of COPD. Patient was given a dose of Decadron and started on doxycycline secondary to COPD with some cough. Patient returns here for further evaluation feeling lightheaded and extremely fatigued. Her oxygen level was low in triage on room air. No chest pain, calf pain or leg swelling. Covid test was not performed yesterday secondary to the patient having a Covid test the primary care physicians the day before with results pending for Saturday. ROS: See HPI All other review of systems reviewed and otherwise negative Reviewed vital signs and nursing note as charted by RN. PHYSICAL EXAM: CONSTITUTIONAL: Alert and oriented and responds appropriately to questions. Well-appearing; well-nourished HEAD: Normocephalic; atraumatic EYES: PERRL; Conjunctivae clear, sclerae non-icteric ENT: Normal nose; no rhinorrhea; moist mucous membranes; pharynx without lesions noted NECK: Supple without meningismus; non-tender; no cervical lymphadenopathy, no masses CARD: Regular rate and rhythm; no murmurs; symmetric distal pulses RESP: Normal chest excursion without splinting or tachypnea; breath sounds clear and equal bilaterally; more expiratory wheezing with no rhonchi or rales ABD/GI: Normal bowel sounds; non-distended; soft, non-tender BACK: The back appears normal and is non-tender to palpation EXT: Normal ROM in all joints; non-tender to palpation; no edema SKIN: No acute lesions noted NEURO: CN 2-12 intact; 5/5 bilateral upper and lower extremity strength with sensation intact to light touch PSYCH: The patient's mood and manner are appropriate. Grooming and personal hygiene are appropriate. TRAVEL OUTSIDE OF THE [place] IN LAST 30 DAYS: No - Related Data Allergies/Adverse Reactions: No Known Allergies Allergy (Verified 10/23/20 10:47) Past Medical History - Social History Smoking Status: Unknown if Ever Smoked Family History: Hypertension - Past Medical History Cardiac Medical History: Reports: Hx Hypertension Pulmonary Medical History: Reports: Hx COPD, Hx Pneumonia - Recurrent walking pneumonia Denies: Hx Bronchitis Neurological Medical History: Reports: Hx Seizures Endocrine Medical History: Reports: Hx Diabetes Mellitus Type 2. Denies: Hx Hyperthyroidism, Hx Hypothyroidism GI Medical History: Reports: Hx Gastroesophageal Reflux Disease Musculoskeletal Medical History: Reports Hx Arthritis Psychiatric Medical History: Reports: Hx Attention Deficit Hyperactivity Disorder, Hx Bipolar Disorder, Hx Depression Infectious Medical History: Denies: Hx MRSA, Hx VRE Past Surgical History: Reports: Hx Cholecystectomy, Hx Hysterectomy, Hx Orthopedic Surgery Physical Exam - Vital signs Vitals: Temp Resp BP Pulse Ox 98.2 F 18 96/61 L 98 10/23/20 10:40 10/23/20 10:40 10/23/20 10:40 10/23/20 10:40 Course - Re-evaluation Re-evalutation: 10/23/20 11:14 Given the above history and physical, hypoxia, will place the patient on oxygen and place the patient in isolation room in order a coronavirus test as well as an x-ray of the chest, septic work-up, EKG, troponin. I would like to evaluate for the possibility of worsening lung infection, COPD exacerbation, myocardial infarction, or other acute pathology. I do believe the risk of pulmonary embolism given the lack of any chest pain to be extremely unlikely. 10/23/20 11:47 EKG shows a heart of 81, normal sinus rhythm, minimal left axis deviation, no obvious ST elevation or depression. Flattening T waves in V2 10/23/20 16:53 Repeat nebulizations have brought the patient to 95% on 2 L. When we walked the patient she desatted and still feels extremely fatigued. Coronavirus is pending. Urine analysis as recorded so we have provided a gram of Rocephin. Patient will be admitted for further evaluation and reassessment. - Vital Signs Vital signs: Temp Pulse Resp BP Pulse Ox 98.2 F 19 92/56 L 94 10/23/20 10:40 10/23/20 16:35 10/23/20 16:35 10/23/20 16:35 - Laboratory Result Diagrams: 10/23/20 11:25 10/23/20 13:41 Laboratory results interpreted by me: 10/23/20 10/23/20 10/23/20 11:25 13:41 14:00 WBC 11.0 H BUN 42 H Creatinine 1.49 H Est GFR ( Amer) 44 L Est GFR (MDRD) Non-Af 36 L Ur Leukocyte Esterase MODERATE H Critical Care Note - Critical Care Note Total time excluding time spent on procedures (mins): 35 Discharge - Discharge Clinical Impression: Cough, Hypoxia Fatigue Qualifiers: Fatigue type: unspecified Qualified Code(s): R53.83 - Other fatigue Condition: Fair Disposition: ADMITTED INPATIENT Admitting Provider: Herrera (Hospitalist) Unit Admitted: Medical Floor Prescriptions: Cephalexin Monohydrate [Keflex 500 mg Capsule] 500 mg PO Q6H 5 Days capsule Referrals: IVONNE CORBIN, [employer] CONDITION[employer] INSTALLER HELPER [Primary Care Provider] - Follow up as needed
[2020-10-23] MEDS ORDERED: NORMAL SALINE 1000 ML 1,000 ML IV ONE (11:02)
[2020-10-23] MEDS: IPRATROPIUM/ALBUTEROL 0.5-2.5 MG/3 ML AMPUL NEB SCH ×3 (11:44→12:15)
--- NOTE | 2020-10-23 11:58 | RADIOLOGY REPORT (SQ) ---
EXAM DESCRIPTION: CHEST SINGLE VIEW IMAGES COMPLETED DATE/TIME: 10/23/2020 11:49 am REASON FOR STUDY: cough COMPARISON: 10/22/2020 TECHNIQUE: Single frontal radiographic view of the chest acquired. NUMBER OF VIEWS: One view. LIMITATIONS: None. FINDINGS: LUNGS AND PLEURA: No pneumothorax. Scattered calcified granulomas in the left lung base. No consolidation or pleural effusion. MEDIASTINUM AND HILAR STRUCTURES: Stable. HEART AND VASCULAR STRUCTURES: Stable. BONES: No acute findings. HARDWARE: None in the chest. OTHER: No other significant finding. IMPRESSION: NO ACUTE FINDINGS. TECHNICAL DOCUMENTATION: JOB ID: [id number] [place]-[id number] 2010 [employer]- All Rights Reserved Reading location - IP/workstation name: [email or web address]
[2020-10-23 12:06] LABS: ABSOLUTE EOSINOPHILS # (AUTO) 0.4 10^3/uL (0.0-0.6); ABSOLUTE LYMPHOCYTES (AUTO) 1.5 10^3/uL (0.5-4.7); ABSOLUTE MONOCYTES (AUTO) 0.9 10^3/uL (0.1-1.4); ABSOLUTE NEUT (AUTO) 8.2 10^3/uL (1.7-8.2); BASOPHILS % (AUTO) 0.4 % (0-2); EOSINOPHILS % (AUTO) 3.4 % (0-6); HEMATOCRIT 37.1 % (36.0-47.0); HEMOGLOBIN 12.5 g/dL (12.0-15.5); LYMPHOCYTES % (AUTO) 13.8 % (13-45); MEAN CORPUSCULAR HEMOGLOBIN 28.5 pg (27.0-33.4); MEAN CORPUSCULAR HGB CONC 33.6 g/dL (32.0-36.0); MEAN CORPUSCULAR VOLUME 85 fl (80-97); MONOCYTES % (AUTO) 8.1 % (3-13); PLATELET COUNT 358 10^3/uL (150-450); RED BLOOD COUNT 4.37 10^6/uL (3.72-5.28); RED CELL DISTRIBUTION WIDTH 13.8 % (11.5-14.0); SEGMENTED NEUTROPHILS % (AUTO) 74.3 % (42-78); TOTAL CELLS COUNTED % (AUTO) 100 %
[2020-10-23 14:13] LABS: ANION GAP 7 (5-19); BLOOD UREA NITROGEN 42 mg/dL (7-20); CALCIUM 9.1 mg/dL (8.4-10.2); CARBON DIOXIDE 26 mmol/L (22-30); CHLORIDE 105 mmol/L (98-107); GLUCOSE 105 mg/dL (75-110); POTASSIUM 4.7 mmol/L (3.6-5.0)
[2020-10-23 14:36] LABS: APPEARANCE,URINE CLOUDY; BILIRUBIN,URINE NEGATIVE (NEGATIVE); COLOR,URINE YELLOW; GLUCOSE, URINE NEGATIVE (NEGATIVE); KETONES,URINE NEGATIVE (NEGATIVE); LEUKOCYTE ESTERASE,URINE MODERATE (NEGATIVE); NITRITE,URINE NEGATIVE (NEGATIVE); PROTEIN,URINE NEGATIVE (NEGATIVE); URINE SPECIFIC GRAVITY 1.015; UROBILINOGEN,URINE NEGATIVE mg/dL (<2.0)
[2020-10-23] MEDS ORDERED: CEFTRIAXONE 1 GM/D5W RTU 1 GM/50 ML RTUPB IV ONE (15:27)
[2020-10-23] MEDS ORDERED: IPRATROPIUM/ALBUTEROL 0.5-2.5 MG/3 ML AMPUL NEB SCH (17:00)
[2020-10-23] MEDS ORDERED: ACETAMINOPHEN 325 MG TABLET PO PRN (18:20)
[2020-10-23] MEDS ORDERED: IPRATROPIUM/ALBUTEROL 0.5-2.5 MG/3 ML AMPUL NEB PRN (18:20)
[2020-10-23] MEDS ORDERED: MAG HYDROX/AL HYDROX/SIMETH SUSP 30 ML UDCUP PO PRN (18:28)
[2020-10-23] MEDS ORDERED: ONDANSETRON HCL INJ/PF 4 MG/2 ML SDV IV PRN (18:28)
[2020-10-23] MEDS ORDERED: LEVOFLOXACIN 750 MG TABLET PO ONE ×2 (18:32→22:00)
[2020-10-23] MEDS ORDERED: NORMAL SALINE 1000 ML 1,000 ML IV PRN (18:34)
--- NOTE | 2020-10-23 18:48 | PDOC H&P ---
History of Present Illness Admission Date/PCP: 10/23/20 17:28 IVONNE CORBIN NP Patient complains of: Shortness of breath History of Present Illness: DAWIT MCCARTHY is a 55 year old female with a history of COPD, seizures, bipolar, presents to the hospital with complaint of shortness of breath which has been progressing for the past several days. She actually describes that the onset was 3 weeks ago which is around the time of her prior admission. She states it has become progressive and she is very dyspneic on exertion. Exercise tolerance is limited to ambulating within the apartment. She states that she was febrile at home. She states she measured her temp pressure at home and it was 102.1F. She admits to a cough. Also complains of nausea vomiting and diarrhea. She came to the ER yesterday and was sent home with prescriptions with suspicion for COPD exacerbation. She did state that she got tested for COVID-19 in the PCPs office on Saturday. Today she returned to the ER with further complaints of shortness of breath and was noted to be hypoxic in the low 80s and also with an CAR. Tested for Covid in the ER. Hospitalist service consulted for admission. Past Medical History Cardiac Medical History: Reports: Hypertension Pulmonary Medical History: Reports: Chronic Obstructive Pulmonary Disease (COPD), Pneumonia - Recurrent walking pneumonia Denies: Bronchitis Neurological Medical History: Reports: Seizures Endocrine Medical History: Reports: Diabetes Mellitus Type 2 - Last A1c was normal so I do not think she actively currently has diabetes Denies: Hyperthyroidism, Hypothyroidism GI Medical History: Reports: Gastroesophageal Reflux Disease Musculoskeltal Medical History: Reports: Arthritis Psychiatric Medical History: Reports: Attention Deficit Hyperactivity Disorder, Bipolar Disorder, Depression Hematology: Denies: Anemia, Bleeding Tendencies Infectious Medical History: Denies: Methicillin-Resistant Staph Aureus, Vancomycin-Resistant Enterococci Past Surgical History Past Surgical History: Reports: Cholecystectomy, Hysterectomy, Orthopedic Surgery Social History Smoking Status: Former Smoker Frequency of Alcohol Use: Rare Hx Recreational Drug Use: Yes - Several years ago, denies current use Drugs: Cocaine Hx Prescription Drug Abuse: No - Advance Directive Resuscitation Status: Full Code Family History Family History: Hypertension Parental Family History Reviewed: Yes Children Family History Reviewed: Yes Sibling(s) Family History Reviewed.: Yes Medication/Allergy Home Medications: Levetiracetam [Keppra] 1,000 mg PO BID #60 tablet 08/11/20 Albuterol Sulfate [Albuterol Sulfate Hfa] 2 puff IH Q4HP PRN 10/04/20 Albuterol Sulfate [Proventil 0.5% Neb 2.5 mg/0.5 ml Vial.neb] 2.5 mg NEB Q4HP PRN 10/04/20 Atorvastatin Calcium [Lipitor 40 mg Tablet] 40 mg PO QHS 10/04/20 Budesonide/Formoterol Fumarate [Symbicort HFA 160-4.5 mcg Inhaler 6 gm] 2 puff IH BID 10/04/20 Gabapentin 300 mg PO Q8 10/04/20 Omeprazole 40 mg PO Q6AM 10/04/20 Cyclobenzaprine HCl [Flexeril 10 mg Tablet] 10 mg PO QHS #8 tablet 10/07/20 Ipratropium/Albuterol Sulfate [Duoneb 3 ml Ampul] 3 ml NEB RTQ6 #5 vial.neb 10/07/20 Lidocaine [Lidoderm 5% (700 mg) Transdermal Patch] 1 patch TP DAILY #10 adh..p atch 10/07/20 Doxycycline Hyclate 100 mg PO BID #14 tablet. 10/22/20 Ondansetron [Zofran Odt 4 mg Tablet] 1 tab PO Q6H #15 tab.rapdis 10/22/20 Cephalexin Monohydrate [Keflex 500 mg Capsule] 500 mg PO Q6H 5 Days capsule 10/23/20 Allergies/Adverse Reactions: No Known Allergies Allergy (Verified 10/23/20 10:47) Review of Systems Constitutional: PRESENT: chills, fever(s) Eyes: ABSENT: visual disturbances Ears: ABSENT: hearing changes Nose, Mouth, and Throat: ABSENT: headache(s) Cardiovascular: PRESENT: dyspnea on exertion. ABSENT: chest pain Respiratory: PRESENT: cough, dyspnea Gastrointestinal: PRESENT: nausea, vomiting Genitourinary: ABSENT: dysuria Integumentary: ABSENT: diaphoresis Neurological: ABSENT: dizziness Psychiatric: PRESENT: anxiety Endocrine: ABSENT: polyuria Hematologic/Lymphatic: ABSENT: easy bleeding Physical Exam Vital Signs: Temp Pulse Resp BP Pulse Ox 98.2 F 19 92/56 L 94 10/23/20 10:40 10/23/20 16:35 10/23/20 16:35 10/23/20 16:35 Intake & Output 10/22/20 10/23/20 10/24/20 06:59 06:59 06:59 Intake Total 50 Balance 50 Weight 86.4 kg General appearance: PRESENT: no acute distress, cooperative Eye exam: PRESENT: EOMI Mouth exam: PRESENT: neck supple Neck exam: ABSENT: JVD Respiratory exam: PRESENT: clear to auscultation carmen, symmetrical, unlabored. ABSENT: accessory muscle use, retraction, tachypnea, wheezes Cardiovascular exam: PRESENT: RRR, +S1, +S2. ABSENT: tachycardia GI/Abdominal exam: PRESENT: soft. ABSENT: rebound, rigid, tenderness Neurological exam: PRESENT: alert, awake, oriented to person, oriented to place, oriented to time Psychiatric exam: PRESENT: anxious. ABSENT: agitated Focused psych exam: ABSENT: pressured speech Skin exam: ABSENT: jaundice Results Laboratory Results: 10/23/20 11:25 10/23/20 13:41 10/23/20 10/23/20 10/23/20 11:25 11:25 11:59 WBC 11.0 H RBC 4.37 Hgb 12.5 Hct 37.1 MCV 85 MCH 28.5 MCHC 33.6 RDW 13.8 Plt Count 358 Seg Neutrophils % 74.3 Sodium Cancelled Potassium Cancelled Chloride Cancelled Carbon Dioxide Cancelled Anion Gap Cancelled BUN Cancelled Creatinine Cancelled Est GFR ( Amer) Cancelled Est GFR (Non-Af Amer) Cancelled Glucose Cancelled Lactic Acid Cancelled Calcium Cancelled Urine Color Urine Appearance Urine pH Ur Specific [place] Urine Protein Urine Glucose (UA) Urine Ketones Urine Blood Urine Nitrite Ur Leukocyte Esterase Urine WBC (Auto) Urine RBC (Auto) 10/23/20 10/23/20 10/23/20 13:41 13:41 14:00 WBC RBC Hgb Hct MCV MCH MCHC RDW Plt Count Seg Neutrophils % Sodium 138.4 Potassium 4.7 Chloride 105 Carbon Dioxide 26 Anion Gap 7 BUN 42 H Creatinine 1.49 H Est GFR ( Amer) 44 L Est GFR (Non-Af Amer) Glucose 105 Lactic Acid 1.3 Calcium 9.1 Urine Color YELLOW Urine Appearance CLOUDY Urine pH 5.0 Ur Specific [place] 1.015 Urine Protein NEGATIVE Urine Glucose (UA) NEGATIVE Urine Ketones NEGATIVE Urine Blood NEGATIVE Urine Nitrite NEGATIVE Ur Leukocyte Esterase MODERATE H Urine WBC (Auto) 18 Urine RBC (Auto) 3 10/23/20 10/23/20 11:25 13:41 Troponin I Cancelled < 0.012 Impressions: Chest X-Ray 10/23/20 11:02 IMPRESSION: NO ACUTE FINDINGS. Assessment and Plan - Diagnosis (1) Hypoxia Is this a current diagnosis for this admission?: Yes (2) Acute kidney injury Is this a current diagnosis for this admission?: Yes (3) Fever Qualifiers: Fever type: unspecified Qualified Code(s): R50.9 - Fever, unspecified Is this a current diagnosis for this admission?: Yes (4) Shortness of breath Is this a current diagnosis for this admission?: Yes (5) Nausea and vomiting Qualifiers: Vomiting type: unspecified Vomiting Intractability: non-intractable Qualified Code(s): R11.2 - Nausea with vomiting, unspecified Is this a current diagnosis for this admission?: Yes (6) Bipolar disorder Is this a current diagnosis for this admission?: Yes (7) History of seizure Is this a current diagnosis for this admission?: Yes - Plan Summary Summary: Informed that patient was hypoxic on presentation in the ER. On my encounter, patient is in high 90s on 1.5 L nasal cannula. Admit for observation Chest x-rays images yesterday and today reviewed by me and are very much overpenetrated and hard to interpret if any actual parenchymal disease. Breath sounds also clear. I will go ahead and order a CTA to evaluate her hypoxia. We will administer IV fluids given her CAR and her BP is soft. Repeat BMP in the morning. She reported measured fevers at home but has not been febrile here. We will monitor her vital signs. I will empirically initiate Levaquin just in case she has any underlying pneumonia but plan to stop antibiotics if CT is negative for any pneumonia. Antiemetics Patient has been Covid tested we will also test for the flu. She states she got tested on Saturday by her PCP for Covid as well and the result is pending. Patient reports history of heart failure but notably her BNP on last visit was completely normal. So I seriously doubt this. Also reported history of diabetes but her hemoglobin A1c last month was also completely normal. Resume her Keppra for her history of seizure. - Time Time Spent with patient: 35 or more minutes Anticipated Discharge Disposition: Home, Self Care Anticipated Discharge Timeframe: within 36 hours
--- NOTE | 2020-10-23 18:56 | EKG REPORT ---
SEVERITY:- BORDERLINE ECG - SINUS RHYTHM BORDERLINE LEFT AXIS DEVIATION CONSIDER ANTERIOR INFARCT : Confirmed by: Sherrie Epstein MD 23-Oct-2020 18:56:22
--- NOTE | 2020-10-23 19:35 | RADIOLOGY REPORT (SQ) ---
EXAM DESCRIPTION: CTA CHEST IMAGES COMPLETED DATE/TIME: 10/23/2020 7:20 pm REASON FOR STUDY: hypoxia, worsening sob COMPARISON: 10/04/2020. TECHNIQUE: CT scan of the chest performed using helical scanning technique with dynamic intravenous contrast injection. Images reviewed with lung, soft tissue and bone windows. Reconstructed coronal and sagittal MPR images reviewed. Additional 3 dimensional post-processing performed to develop Maximal Intensity Projection images (LA P). All images stored on PACS. All CT scanners at this facility use dose modulation, iterative reconstruction, and/or weight based d osing when appropriate to reduce radiation dose to as low as reasonably achievable (ALARA). [facility]: Dose Right [facility]: CareDose [facility]: Dose Right [facility]: Teradose 4D [facility]: Webymaster CONTRAST TYPE AND DOSE: contrast/concentration: Isovue 350.00 mmol/ml; Total Contrast Delivered: 75. 0 ml; Total Saline Delivered: 75.0 ml Contrast bolus adequate for pulmonary arteries and aorta. RENAL FUNCTION: BUN 42 creatinine 1.49. RADIATION DOSE: CT Rad equipment meets quality standard of care and radiation dose reduction techniq ues were employed. CTDIvol: 6.6 - 22.8 mGy. DLP: 793 mGy-cm. . LIMITATIONS: None. FINDINGS: LUNGS AND PLEURA: Mild atelectasis. No masses, infiltrates, or pneumothorax. No pleural effusions or pleural calcifications. AORTA AND GREAT VESSELS: No aneurysm. Contrast bolus not optimized for the aorta. HEART: No pericardial effusion. No significant coronary artery calcifications. PULMONARY ARTERIES: No emboli visualized in the main pulmonary arteries or the segmental branches. HILAR AND MEDIASTINAL STRUCTURES: No identified masses or abnormal nodes. HARDWARE: Right shoulder prosthesis. UPPER ABDOMEN: No significant findings. Calcification in the right kidney. Limited exam. THYROID AND OTHER SOFT TISSUES: No masses. No adenopathy. BONES: No acute or significant finding. 3D MIPS: Confirm above findings. OTHER: No other significant finding. IMPRESSION: NORMAL CTA OF THE CHEST. NO PULMONARY EMBOLI. COMMENT: Quality ID # [id number]: Final reports with documentation of one or more dose reduction techniques (e.g., Automated exposure control, adjustment of the mA and/or kV according to patient size, use of iterative reconstruction technique) TECHNICAL DOCUMENTATION: JOB ID: [id number] 2010 [employer]- All Rights Reserved Reading location - IP/workstation name: [email or web address]
[2020-10-23 20:43] LABS: A TYPE INFLUENZA AG NEGATIVE (NEGATIVE); B INFLUENZA AG NEGATIVE (NEGATIVE)
[2020-10-23] MEDS ORDERED: ATORVASTATIN CALCIUM 40 MG TABLET PO SCH (22:00)
[2020-10-23] MEDS: GABAPENTIN 300 MG CAPSULE PO SCH (23:06)
[2020-10-23] MEDS: LEVETIRACETAM 500 MG TABLET PO SCH (23:06)
[2020-10-24] MEDS ORDERED: ALBUTEROL SULFATE HFA (90 MCG/PUFF) 8 GM MDI IH ONE (02:03)
[2020-10-24] MEDS: ALBUTEROL SULFATE HFA (90 MCG/PUFF) 8 GM MDI IH SCH ×2 (02:22→12:58)
[2020-10-24] MEDS ORDERED: PANTOPRAZOLE SODIUM 40 MG TABLET.DR PO SCH (06:00)
[2020-10-24] MEDS: GABAPENTIN 300 MG CAPSULE PO SCH (06:12)
[2020-10-24 06:41] LABS: ANION GAP 13 (5-19); BLOOD UREA NITROGEN 37 mg/dL (7-20); CALCIUM 9.3 mg/dL (8.4-10.2); CARBON DIOXIDE 18 mmol/L (22-30); CHLORIDE 108 mmol/L (98-107); GLUCOSE 103 mg/dL (75-110); POTASSIUM 4.6 mmol/L (3.6-5.0)
[2020-10-24 07:09] LABS: C-REACTIVE PROTEIN < 5.0 mg/L (<10.0)
[2020-10-24] MEDS ORDERED: DEXAMETHASONE SOD PHOS INJ 10 MG/1 ML VIAL IV SCH (10:00)
[2020-10-24] MEDS ORDERED: ASCORBIC ACID 500 MG TABLET PO SCH (10:00)
[2020-10-24] MEDS ORDERED: ZINC SULFATE 220 MG CAPSULE PO SCH (10:00)
[2020-10-24] MEDS ORDERED: ENOXAPARIN SODIUM INJ 40 MG/0.4 ML DISP.SYRIN SUBCUT SCH (10:00)
[2020-10-24] MEDS ORDERED: CHOLECALCIFEROL (D3) 1,000 UNIT (25 MCG) TABLET PO SCH (10:00)
[2020-10-24] MEDS ORDERED: LIDOCAINE 5% (700 MG) TRANSDERMAL ADH..PATCH TP SCH (10:00)
[2020-10-24] MEDS: LEVETIRACETAM 500 MG TABLET PO SCH (10:01)
[2020-10-24] MEDS ORDERED: ALBUTEROL SULFATE HFA (90 MCG/PUFF) 8 GM MDI IH SCH (12:00)
--- NOTE | 2020-10-24 12:19 | PDOC DISCHARGE SUMMARY ---
Impression - Admit/DC Date/PCP Admission Date/Primary Care Provider: 10/23/20 17:28 IVONNE CORBIN NP Discharge Date: 10/24/20 - Discharge Diagnosis (1) Hypoxia Is this a current diagnosis for this admission?: Yes (2) Acute kidney injury Is this a current diagnosis for this admission?: Yes (3) Bipolar disorder Is this a current diagnosis for this admission?: Yes (4) Fever Is this a current diagnosis for this admission?: Yes (5) History of seizure Is this a current diagnosis for this admission?: Yes (6) Nausea and vomiting Is this a current diagnosis for this admission?: Yes (7) Shortness of breath Is this a current diagnosis for this admission?: Yes - Assessment Summary: Informed that patient was hypoxic on presentation in the ER. On my encounter, patient is in high 90s on 1.5 L nasal cannula. Admit for observation Chest x-rays images yesterday and today reviewed by me and are very much overpenetrated and hard to interpret if any actual parenchymal disease. Breath sounds also clear. I will go ahead and order a CTA to evaluate her hypoxia. We will administer IV fluids given her CAR and her BP is soft. Repeat BMP in the morning. She reported measured fevers at home but has not been febrile here. We will monitor her vital signs. I will empirically initiate Levaquin just in case she has any underlying pneumonia but plan to stop antibiotics if CT is negative for any pneumonia. Antiemetics Patient has been Covid tested we will also test for the flu. She states she got tested on Saturday by her PCP for Covid as well and the result is pending. Patient reports history of heart failure but notably her BNP on last visit was completely normal. So I seriously doubt this. Also reported history of diabetes but her hemoglobin A1c last month was also completely normal. Resume her Keppra for her history of seizure. - Additional Information Resuscitation Status: Full Code Discharge Diet: As Tolerated Discharge Activity: Activity As Tolerated Referrals: IVONNE CORBIN NP [Primary Care Provider] - Follow up as needed Prescriptions: Cephalexin Monohydrate [Keflex 500 mg Capsule] 500 mg PO Q6H 5 Days capsule Home Medications: Levetiracetam [Keppra] 1,000 mg PO BID #60 tablet 08/11/20 Albuterol Sulfate [Albuterol Sulfate Hfa] 2 puff IH Q4HP PRN 10/04/20 Albuterol Sulfate [Proventil 0.5% Neb 2.5 mg/0.5 ml Vial.neb] 2.5 mg NEB Q4HP PRN 10/04/20 Atorvastatin Calcium [Lipitor 40 mg Tablet] 40 mg PO QHS 10/04/20 Budesonide/Formoterol Fumarate [Symbicort HFA 160-4.5 mcg Inhaler 6 gm] 2 puff IH BID 10/04/20 Gabapentin 300 mg PO Q8 10/04/20 Omeprazole 40 mg PO Q6AM 10/04/20 Cyclobenzaprine HCl [Flexeril 10 mg Tablet] 10 mg PO QHS #8 tablet 10/07/20 Ipratropium/Albuterol Sulfate [Duoneb 3 ml Ampul] 3 ml NEB RTQ6 #5 vial.neb 10/07/20 Lidocaine [Lidoderm 5% (700 mg) Transdermal Patch] 1 patch TP DAILY #10 adh..patch 10/07/20 Doxycycline Hyclate 100 mg PO BID #14 tablet.dr 10/22/20 Ondansetron [Zofran Odt 4 mg Tablet] 1 tab PO Q6H #15 tab.rapdis 10/22/20 Cephalexin Monohydrate [Keflex 500 mg Capsule] 500 mg PO Q6H 5 Days capsule 10/23/20 History of Present Illiness History of Present Illness: DAWIT MCCARTHY is a 55 year old female with a history of COPD, seizures, bipolar, presents to the hospital with complaint of shortness of breath which has been progressing for the past several days. She actually describes that the onset was 3 weeks ago which is around the time of her prior admission. She states it has become progressive and she is very dyspneic on exertion. Exercise tolerance is limited to ambulating within the apartment. She states that she was febrile at home. She states she measured her temp pressure at home and it was 102.1F. She admits to a cough. Also complains of nausea vomiting and diarrhea. She came to the ER yesterday and was sent home with prescriptions with suspicion for COPD exacerbation. She did state that she got tested for COVID-19 in the PCPs office on Saturday. Today she returned to the ER with further complaints of shortness of breath and was noted to be hypoxic in the low 80s and also with an CAR. Tested for Covid in the ER. Hospitalist service consulted for admission. Hospital Course Hospital Course: Patient was reportedly hypoxic on presentation to the emergency room. She is currently 97% on room air. No respiratory distress. She was admitted for observation. Chest x-ray unremarkable. CTA of the chest unremarkable. Covid test negative. Patient is at her baseline. Okay for discharge. She had slight bump in her creatinine which is currently better after fluids. Patient reported history of diabetes but her hemoglobin A1c last month was also completely normal. Resume her Keppra for her history of seizure. Patient is stable for discharge. Discussed with the patient and she is in agreement. Physical Exam Vital Signs: Temp Pulse Resp BP Pulse Ox 97.6 F 95 17 126/82 H 97 10/24/20 10:00 10/24/20 07:38 10/24/20 07:38 10/24/20 07:38 10/24/20 07:38 Intake & Output 10/23/20 10/24/20 10/25/20 06:59 06:59 06:59 Intake Total 310 Output Total 1550 Balance -1240 Weight 190 lb 7.67 oz General appearance: PRESENT: no acute distress Eye exam: PRESENT: EOMI Respiratory exam: PRESENT: clear to auscultation carmen. ABSENT: accessory muscle use Cardiovascular exam: PRESENT: RRR, +S1, +S2 GI/Abdominal exam: PRESENT: normal bowel sounds, soft. ABSENT: tenderness Neurological exam: PRESENT: alert, awake, oriented to person, oriented to place, oriented to time, oriented to situation Results Laboratory Results: WBC 11.0 10^3/uL (4.0-10.5) H 10/23/20 11:25 RBC 4.37 10^6/uL (3.72-5.28) 10/23/20 11:25 Hgb 12.5 g/dL (12.0-15.5) 10/23/20 11:25 Hct 37.1 % (36.0-47.0) 10/23/20 11:25 MCV 85 fl (80-97) 10/23/20 11:25 MCH 28.5 pg (27.0-33.4) 10/23/20 11:25 MCHC 33.6 g/dL (32.0-36.0) 10/23/20 11:25 RDW 13.8 % (11.5-14.0) 10/23/20 11:25 Plt Count 358 10^3/uL (150-450) 10/23/20 11:25 Lymph % (Auto) 13.8 % (13-45) 10/23/20 11:25 Whitman % (Auto) 8.1 % (3-13) 10/23/20 11:25 Eos % (Auto) 3.4 % (0-6) 10/23/20 11:25 Baso % (Auto) 0.4 % (0-2) 10/23/20 11:25 Absolute Neuts (auto) 8.2 10^3/uL (1.7-8.2) 10/23/20 11:25 Absolute Lymphs (auto) 1.5 10^3/uL (0.5-4.7) 10/23/20 11:25 Absolute Monos (auto) 0.9 10^3/uL (0.1-1.4) 10/23/20 11:25 Absolute Eos (auto) 0.4 10^3/uL (0.0-0.6) 10/23/20 11:25 Absolute Basos (auto) 0.0 10^3/uL (0.0-0.2) 10/23/20 11:25 Seg Neutrophils % 74.3 % (42-78) 10/23/20 11:25 D-Dimer 0.97 ug/mL (0.00-0.50) H 10/23/20 11:25 Sodium 138.9 mmol/L (137-145) 10/24/20 03:59 Potassium 4.6 mmol/L (3.6-5.0) 10/24/20 03:59 Chloride 108 mmol/L (98-107) H 10/24/20 03:59 Carbon Dioxide 18 mmol/L (22-30) L 10/24/20 03:59 Anion Gap 13 (5-19) 10/24/20 03:59 BUN 37 mg/dL (7-20) H 10/24/20 03:59 Creatinine 1.19 mg/dL (0.52-1.25) 10/24/20 03:59 Est GFR ( Amer) 57 (>60) L 10/24/20 03:59 Est GFR (Non-Af Amer) Cancelled 10/23/20 11:25 Est GFR (MDRD) Non-Af 47 (>60) L 10/24/20 03:59 Glucose 103 mg/dL (75-110) 10/24/20 03:59 Lactic Acid 1.3 mmol/L (0.7-2.1) 10/23/20 13:41 Calcium 9.3 mg/dL (8.4-10.2) 10/24/20 03:59 Ferritin 74.20 ng/mL (11.1-264.0) 10/24/20 03:59 Troponin I < 0.012 ng/mL 10/23/20 13:41 C-Reactive Protein < 5.0 mg/L (<10.0) 10/24/20 03:59 EGFR Cancelled 10/23/20 11:25 Urine Color YELLOW 10/23/20 14:00 Urine Appearance CLOUDY 10/23/20 14:00 Urine pH 5.0 (5.0-9.0) 10/23/20 14:00 Ur Specific [place] 1.015 10/23/20 14:00 Urine Protein NEGATIVE mg/dL (NEGATIVE) 10/23/20 14:00 Urine Glucose (UA) NEGATIVE mg/dL (NEGATIVE) 10/23/20 14:00 Urine Ketones NEGATIVE mg/dL (NEGATIVE) 10/23/20 14:00 Urine Blood NEGATIVE (NEGATIVE) 10/23/20 14:00 Urine Nitrite NEGATIVE (NEGATIVE) 10/23/20 14:00 Urine Bilirubin NEGATIVE (NEGATIVE) 10/23/20 14:00 Urine Urobilinogen NEGATIVE mg/dL (<2.0) 10/23/20 14:00 Ur Leukocyte Esterase MODERATE (NEGATIVE) H 10/23/20 14:00 Urine WBC (Auto) 18 /HPF 10/23/20 14:00 Urine RBC (Auto) 3 /HPF 10/23/20 14:00 U Hyaline Cast (Auto) 4 /LPF 10/23/20 14:00 Urine Bacteria (Auto) TRACE /HPF 10/23/20 14:00 Squamous Epi Cells Auto 15 /HPF 10/23/20 14:00 Urine Mucus (Auto) RARE /LPF 10/23/20 14:00 Urine Ascorbic Acid NEGATIVE (NEGATIVE) 10/23/20 14:00 COVID-19 Source Cancelled 10/23/20 13:15 COVID-19 (GERALD) Cancelled 10/23/20 13:15 Influenza A (Rapid) NEGATIVE (NEGATIVE) 10/23/20 20:00 Influenza A (RT-PCR) NEGATIVE (NEGATIVE) 10/23/20 13:15 Influenza B (Rapid) NEGATIVE (NEGATIVE) 10/23/20 20:00 Influenza B (RT-PCR) NEGATIVE (NEGATIVE) 10/23/20 13:15 RSV (RT-PCR) NEGATIVE (NEGATIVE) 10/23/20 13:15 SARS-CoV-2 Rap RNA(RT-PCR) NEGATIVE (NEGATIVE) 10/23/20 13:15 10/23/20 10/23/20 11:25 13:41 Troponin I Cancelled < 0.012 Impressions: Chest/Abdomen CTA 10/23/20 00:00 IMPRESSION: NORMAL CTA OF THE CHEST. NO PULMONARY EMBOLI. Chest X-Ray 10/23/20 11:02 IMPRESSION: NO ACUTE FINDINGS. Plan Time Spent: Less than 30 Minutes Stroke Is this a Stroke Patient?: No Acute Heart Failure Is this a Heart Failure Patient?: No
[2020-10-24 12:35] VITALS: BP 117/81
[2020-10-24] MEDS ORDERED: LEVOFLOXACIN 750 MG TABLET PO SCH (15:00)
== END 2020-10-24 13:10 | disposition home or self-care (01) ==
LOC: ER 10:28 → EH 17:28 → INTOOBSV 17:28 → 4N 22:29
PROVIDERS: ADMIT Internal Medicine; ATTEND Internal Medicine
DX: R09.02 Hypoxemia (principal); N17.9 Acute kidney failure, unspecified; F31.9 Bipolar disorder, unspecified; R50.9 Fever, unspecified; R11.2 Nausea with vomiting, unspecified; R06.02 Shortness of breath; R19.7 Diarrhea, unspecified; R05 Cough; J44.9 Chronic obstructive pulmonary disease, unspecified; R56.9 Unspecified convulsions; K21.9 Gastro-esophageal reflux disease without esophagitis; Z20.828 Contact with and (suspected) exposure to other viral communicable diseases; Z86.79 Personal history of other diseases of the circulatory system; Z86.39 Personal history of other endocrine, nutritional and metabolic disease; Z79.899 Other long term (current) drug therapy; Z90.49 Acquired absence of other specified parts of digestive tract; Z90.710 Acquired absence of both cervix and uterus; Z87.891 Personal history of nicotine dependence; Z82.49 Family history of ischemic heart disease and other diseases of the circulatory system
CPT/HCPCS: 93005; 94640 ×3; 99285; 96365; 36415 ×2; 87040; 87086; 82728; 83605; 85025; 0241U ×4; 86140; 80048 ×2; 81001; 84484; 85379; 87804; 71045; 71275; 93010; G0378 ×3; J3490 ×12; J1650; J7030; J0696; C9803

== ENCOUNTER 2020-11-06 12:10 | Emergency (ER) | payer MEDICAID ==
[2020-11-06 12:21] VITALS: BP 127/83
[2020-11-06] MEDS ORDERED: ACETAMINOPHEN 325 MG TABLET PO ONE (12:39)
--- NOTE | 2020-11-06 12:39 | ER Document Report ---
HPI - HPI Patient complains to provider of: Right hand pain Time Seen by Provider: 11/06/20 12:34 Pain Level: 2 Context: 55-year-old female presents to the emergency room complaining of right hand pain. States she tripped and fell landing on her right hand. Patient states she heard "a pop" when she fell. States happened just prior to arrival. Did not take any medications for her symptoms. No history of previous trauma or injury to her hand. Patient is right-handed. Associated Symptoms: None Exacerbated by: Movement Relieved by: Remaining still Similar symptoms previously: No Recently seen / treated by doctor: No - ROS Systems Reviewed and Negative: Yes All other systems reviewed and negative - NEURO Neurology: DENIES: Weakness - REPRODUCTIVE Reproductive: DENIES: : - MUSCULOSKELETAL Musculoskeletal: REPORTS: Extremity pain - DERM Skin Color: Normal Skin Problems: None Past Medical History - General Information source: Patient - Social History Smoking Status: Never Smoker Frequency of alcohol use: Occasional Drug Abuse: None Family History: Hypertension - Past Medical History Cardiac Medical History: Reports: Hx Hypertension Pulmonary Medical History: Reports: Hx COPD, Hx Pneumonia - Recurrent walking pneumonia Denies: Hx Bronchitis Neurological Medical History: Reports: Hx Seizures Endocrine Medical History: Reports: Hx Diabetes Mellitus Type 2 - Last A1c was normal so I do not think she actively currently has diabetes. Denies: Hx Hyperthyroidism, Hx Hypothyroidism GI Medical History: Reports: Hx Gastroesophageal Reflux Disease Musculoskeletal Medical History: Reports Hx Arthritis Psychiatric Medical History: Reports: Hx Attention Deficit Hyperactivity Disorder, Hx Bipolar Disorder, Hx Depression Infectious Medical History: Denies: Hx MRSA, Hx VRE Past Surgical History: Reports: Hx Cholecystectomy, Hx Hysterectomy, Hx Orthopedic Surgery Vertical Provider Document - CONSTITUTIONAL Agree With Documented VS: Yes Exam Limitations: No Limitations General Appearance: Mild Distress - INFECTION CONTROL TRAVEL OUTSIDE OF THE [place] IN LAST 30 DAYS: No - HEENT HEENT: Atraumatic, Normocephalic - NECK Neck: Normal Inspection, Supple, Thyroid Normal - RESPIRATORY Respiratory: Breath Sounds Normal, No Respiratory Distress - CARDIOVASCULAR Cardiovascular: Regular Rate, Regular Rhythm, No Murmur - MUSCULOSKELETAL/EXTREMETIES Musculoskeletal/Extremeties: Tender - Tenderness to the dorsal mid aspect of the right hand. There is no erythema. There is no swelling. There is no obvious deformity noted. Full range of motion in flexion extension to all digits of the right hand. Her equal opportunity counselor strength is equal and adequate bilaterally. - NEURO Level of Consciousness: Awake, Alert, Appropriate Motor/Sensory: No Motor Deficit, No Sensory Deficit Notes: Positive right radial pulse. Capillary refill less than 3 seconds. - DERM Integumentary: Warm, Dry Course - Re-evaluation Re-evalutation: 11/06/20 13:28 Reviewed x-ray results with patient. Patient is neurovascularly intact. Danial wrap applied by nursing staff as documented. Counseled to rest, ice, elevate take Tylenol or Motrin as needed for pain. Outpatient follow-up with orthopedics if not improving in 2 to 3 days. On-call physician was provided. Patient was given strict return to the emergency room guidelines. Return for any new or worsening symptoms. All questions were answered. Patient verbalized understanding and agrees with plan of care. 11/06/20 20:53 - Vital Signs Vital signs: Temp Pulse Resp BP Pulse Ox 98.7 F 76 16 127/83 H 99 11/06/20 12:21 11/06/20 12:21 11/06/20 12:21 11/06/20 12:21 11/06/20 12:21 - Diagnostic Test Radiology reviewed: Reports reviewed Procedures - Immobilization Right Hand Time completed: 13:10 Pre-Proc Neuro Vasc Exam: Normal Immobilizer type: Danial wrap Performed by: PCT Post-Proc Neuro Vasc Exam: Normal Alignment checked and good: Yes Discharge - Discharge Clinical Impression: Contusion of right hand Qualifiers: Encounter type: initial encounter Qualified Code(s): S60.221A - Contusion of right hand, initial encounter Condition: Stable Disposition: HOME, SELF-CARE Instructions: Contusion ([facility]) Additional Instructions: Wear Danial wrap for comfort. Tylenol or Motrin for pain. Rest ice and elevate your right hand at least 20 minutes 3 times a day. Follow-up with orthopedics if not improving in 2 to 3 days. Return to the emergency room for any new or worsening symptoms. Referrals: IVONNE CORBIN NP [Primary Care Provider] - Follow up as needed MARYLOU CASTANO DO [ACTIVE STAFF] - Follow up as needed
--- NOTE | 2020-11-06 13:08 | RADIOLOGY REPORT (SQ) ---
EXAM DESCRIPTION: HAND RIGHT 3 VIEWS IMAGES COMPLETED DATE/TIME: 11/06/2020 12:51 pm REASON FOR STUDY: injury COMPARISON: None. EXAM PARAMETERS: NUMBER OF VIEWS: Three views. TECHNIQUE: AP, lateral and oblique radiographic images acquired of the right hand. LIMITATIONS: None. FINDINGS: MINERALIZATION: Normal. BONES: No acute fracture or dislocation. No worrisome bone lesions. JOINTS: No effusions. SOFT TISSUES: No soft tissue swelling. No foreign body. OTHER: No other significant finding. IMPRESSION: NEGATIVE STUDY OF THE RIGHT HAND. NO RADIOGRAPHIC EVIDENCE OF ACUTE INJURY. TECHNICAL DOCUMENTATION: JOB ID: [id number] 2010 [employer]- All Rights Reserved Reading location - IP/workstation name: [email or web address]
== END 2020-11-06 13:30 | disposition home or self-care (01) ==
LOC: ER 12:10
DX: S60.221A Contusion of right hand, initial encounter (principal); W01.0XXA Fall on same level from slipping, tripping and stumbling without subsequent striking against object, initial encounter; I10 Essential (primary) hypertension; Z90.49 Acquired absence of other specified parts of digestive tract; Z90.710 Acquired absence of both cervix and uterus
CPT/HCPCS: 99283; 73130; J3490

== ENCOUNTER 2020-11-21 11:29 | Emergency (ER) | payer MEDICAID ==
[2020-11-21 11:48] VITALS: BP 103/76
--- NOTE | 2020-11-21 11:50 | ER Document Report ---
ED Medical Screen (RME) - General Chief Complaint: Shortness Of Breath Stated Complaint: SHORT OF BREATH,CONGESTION Time Seen by Provider: 11/21/20 11:43 Primary Care Provider: IVONNE CORBIN NP [Primary Care Provider] - Follow up as needed Mode of Arrival: Ambulatory Information source: Patient Notes: 55-year-old female presents to ED for complaint of shortness of breath fever fatigue. She states she has been able to smell and taste up until last night she has no sense of taste or smell. She states her father told her she needed to come right over and get checked out. She states she has been coughing a lot more than normal. She is alert oriented respirations are regular nonlabored vital signs are stable we will get the Covid testing done. I have greeted and performed a rapid initial assessment of this patient. A comprehensive ED assessment and evaluation of the patient, analysis of test results and completion of medical decision making process will be conducted by an additional ED providers. TRAVEL OUTSIDE OF THE [place] IN LAST 30 DAYS: No - Related Data Allergies/Adverse Reactions: No Known Allergies Allergy (Verified 11/06/20 12:37) Past Medical History - Past Medical History Cardiac Medical History: Reports: Hx Hypertension Pulmonary Medical History: Reports: Hx COPD, Hx Pneumonia - Recurrent walking pneumonia Denies: Hx Bronchitis Neurological Medical History: Reports: Hx Seizures Endocrine Medical History: Reports: Hx Diabetes Mellitus Type 2 - Last A1c was normal so I do not think she actively currently has diabetes. Denies: Hx Hyperthyroidism, Hx Hypothyroidism GI Medical History: Reports: Hx Gastroesophageal Reflux Disease Musculoskeltal Medical History: Reports Hx Arthritis Psychiatric Medical History: Reports: Hx Attention Deficit Hyperactivity Disorder, Hx Bipolar Disorder, Hx Depression Infectious Medical History: Denies: Hx MRSA, Hx VRE Past Surgical History: Reports: Hx Cholecystectomy, Hx Hysterectomy, Hx Orthopedic Surgery Physical Exam - Vital signs Vitals: Temp Pulse Resp BP Pulse Ox 98.0 F 69 20 103/76 99 11/21/20 11:46 11/21/20 11:46 11/21/20 11:46 11/21/20 11:46 11/21/20 11:46 Course - Vital Signs Vital signs: Temp Pulse Resp BP Pulse Ox 98.0 F 69 20 103/76 99 11/21/20 11:46 11/21/20 11:46 11/21/20 11:46 11/21/20 11:46 11/21/20 11:46 Doctor's Discharge - Discharge Referrals: IVONNE CORBIN, MH TEACHER [Primary Care Provider] - Follow up as needed
--- NOTE | 2020-11-21 12:34 | RADIOLOGY REPORT (SQ) ---
EXAM DESCRIPTION: CHEST SINGLE VIEW IMAGES COMPLETED DATE/TIME: 11/21/2020 12:24 pm REASON FOR STUDY: Cough short of breath aches fever last night COMPARISON: 10/23/2020 EXAM PARAMETERS: NUMBER OF VIEWS: One view. TECHNIQUE: Single frontal radiographic view of the chest acquired. RADIATION DOSE: NA LIMITATIONS: None. FINDINGS: LUNGS AND PLEURA: No opacities, masses or pneumothorax. No pleural effusion. MEDIASTINUM AND HILAR STRUCTURES: No masses. Contour normal. HEART AND VASCULAR STRUCTURES: Heart normal in size. Normal vasculature. BONES: No acute findings. HARDWARE: None in the chest. OTHER: No other significant finding. IMPRESSION: NO ACUTE RADIOGRAPHIC FINDING IN THE CHEST. TECHNICAL DOCUMENTATION: JOB ID: [id number] 2010 [employer]- All Rights Reserved Reading location - IP/workstation name: [email or web address]
[2020-11-21 12:50] LABS: ABSOLUTE EOSINOPHILS # (AUTO) 0.3 10^3/uL (0.0-0.6); ABSOLUTE LYMPHOCYTES (AUTO) 1.6 10^3/uL (0.5-4.7); ABSOLUTE MONOCYTES (AUTO) 0.4 10^3/uL (0.1-1.4); ABSOLUTE NEUT (AUTO) 3.4 10^3/uL (1.7-8.2); BASOPHILS % (AUTO) 0.8 % (0-2); EOSINOPHILS % (AUTO) 5.8 % (0-6); HEMOGLOBIN 11.7 g/dL (12.0-15.5); LYMPHOCYTES % (AUTO) 27.4 % (13-45); MEAN CORPUSCULAR HEMOGLOBIN 28.2 pg (27.0-33.4); MEAN CORPUSCULAR HGB CONC 33.5 g/dL (32.0-36.0); MEAN CORPUSCULAR VOLUME 84 fl (80-97); MONOCYTES % (AUTO) 7.5 % (3-13); PLATELET COUNT 298 10^3/uL (150-450); RED BLOOD COUNT 4.14 10^6/uL (3.72-5.28); RED CELL DISTRIBUTION WIDTH 14.1 % (11.5-14.0); SEGMENTED NEUTROPHILS % (AUTO) 58.5 % (42-78); TOTAL CELLS COUNTED % (AUTO) 100 %; WHITE BLOOD COUNT 5.8 10^3/uL (4.0-10.5)
[2020-11-21 13:20] LABS: ALKALINE PHOSPHATASE 93 U/L (38-126); ANION GAP 9 (5-19); ASPARTATE AMINO TRANSFERASE 19 U/L (14-36); BILIRUBIN,DIRECT 0.1 mg/dL (0.0-0.4); BILIRUBIN,TOTAL 0.4 mg/dL (0.2-1.3); BLOOD UREA NITROGEN 17 mg/dL (7-20); CALCIUM 9.7 mg/dL (8.4-10.2); CARBON DIOXIDE 25 mmol/L (22-30); CHLORIDE 107 mmol/L (98-107); GLUCOSE 92 mg/dL (75-110); POTASSIUM 4.7 mmol/L (3.6-5.0); TOTAL PROTEIN 6.9 g/dL (6.3-8.2)
[2020-11-21] MEDS ORDERED: DEXAMETHASONE SOD PHOS INJ 10 MG/1 ML VIAL IV ONE (13:46)
--- NOTE | 2020-11-21 13:52 | ER Document Report ---
ED General - General Chief Complaint: COPD Exacerbation Stated Complaint: SHORT OF BREATH,CONGESTION Time Seen by Provider: 11/21/20 11:43 Primary Care Provider: IVONNE CORBIN NP [Primary Care Provider] - Follow up in 3-5 days Mode of Arrival: Ambulatory TRAVEL OUTSIDE OF THE [place] IN LAST 30 DAYS: No - HPI Notes: Patient is a 55-year-old female with a past medical history of COPD, seizures, high blood pressure who presents with shortness of breath. Patient states she felt fine yesterday. She states that she woke up today and noticed that she was warm and had chills. She also states that she has had a cough that is sometimes productive sometimes nonproductive. She has not taken her temperature. She mentions a slight sore throat. She is positive for diarrhea, nausea, vomiting. She states she lost her sense of taste and smell today as well. Patient was tested for Covid in the beginning of October from records, and was negative. She states she feels like there is a rattling in her chest and some chest discomfort when she coughs. She was admitted to the hospital last month for COPD exacerbation. She had a negative CTA, Covid test, influenza test. - Related Data Allergies/Adverse Reactions: No Known Allergies Allergy (Verified 11/06/20 12:37) Past Medical History - General Information source: Patient - Social History Smoking Status: Former Smoker Family History: Hypertension - Past Medical History Cardiac Medical History: Reports: Hx Hypertension Pulmonary Medical History: Reports: Hx COPD, Hx Pneumonia - Recurrent walking pneumonia Denies: Hx Bronchitis Neurological Medical History: Reports: Hx Seizures Endocrine Medical History: Reports: Hx Diabetes Mellitus Type 2 - Last A1c was normal so I do not think she actively currently has diabetes. Denies: Hx Hyperthyroidism, Hx Hypothyroidism GI Medical History: Reports: Hx Gastroesophageal Reflux Disease Musculoskeletal Medical History: Reports Hx Arthritis Psychiatric Medical History: Reports: Hx Attention Deficit Hyperactivity Disorder, Hx Bipolar Disorder, Hx Depression Infectious Medical History: Denies: Hx MRSA, Hx VRE Past Surgical History: Reports: Hx Cholecystectomy, Hx Hysterectomy, Hx Orthopedic Surgery Review of Systems - Review of Systems Notes: CONSTITUTIONAL: Positive for subjective fevers and fatigue. SKIN: No rash. HENT: No congestion or ear pain. Positive for slight sore throat. CARDIOVASCULAR: Positive for chest discomfort when coughing. RESPIRATORY: Positive for cough, shortness of breath. GASTROINTESTINAL: No abdominal pain. Positive for nonbloody diarrhea, vomiting. Positive for nausea. GENITOURINARY: No dysuria. MUSCULOSKELETAL: No joint pain or swelling. LYMPHATIC: No swollen glands. NEUROLOGIC: No seizures. No headache, focal weakness or sensory changes. HEMATOLOGIC: No unusual bruising or bleeding. PSYCHIATRIC: No depression or anxiety. Physical Exam - Vital signs Vitals: Temp Pulse Resp BP Pulse Ox 98.0 F 69 20 103/76 99 11/21/20 11:46 11/21/20 11:46 11/21/20 11:46 11/21/20 11:46 11/21/20 11:46 - General General appearance: Appears well Notes: VITAL SIGNS: Within normal limits. On room air. Speaking full sentences. No acute distress. GENERAL: No acute distress, non-toxic appearance. HEAD: Normal with no signs of head trauma. EYES: Conjunctiva normal, no discharge. EARS: Hearing grossly intact. NOSE: Normal. NECK: Normal range of motion, no tenderness, supple, no lymphadenopathy, No adenopathy, no JVD. CHEST: Clear breath sounds bilaterally. No wheezes, rales, or rhonchi. CARDIAC: Regular rate and rhythm. S1 and S2. VASCULAR: No Edema. ABDOMEN: Normal and soft with no tenderness, no masses or pulsatile masses. LYMPATHTIC: No lymphadenopathy noted. MUSCULOSKELETAL: Good range of motion of all major joints. Extremities without clubbing, cyanosis or edema. NEUROLOGICAL: Alert and oriented x 3. No focal sensory or strength deficits. Speech normal. Follows commands appropriately. PSYCHIATRIC: Normal Affect, judgement and mood. SKIN: Normal appearance with no rashes or lesions. Course - Re-evaluation Re-evalutation: 11/21/20 21:28 Patient's cardiac work-up was unremarkable. She has been 99% on room air. She is talking and eating snacks in the room. Patient was ambulated and remained 99% on room air. Her chest x-ray is negative for pneumonia. I do not suspect PE with her symptoms. I did inform her of her work-up. She wanted to be Covid tested again. I informed her she needs to self isolate until she is called with a negative result. She was given a dose of dexamethasone. Patient states she has inhalers at home. Patient was given strict return precautions. She is very agreeable to the plan. 11/21/20 21:30 - Vital Signs Vital signs: Temp Pulse Resp BP Pulse Ox 98.0 F 69 20 103/76 99 11/21/20 11:46 11/21/20 11:46 11/21/20 11:46 11/21/20 11:46 11/21/20 11:46 - Laboratory Results Result Diagrams: 11/21/20 12:21 11/21/20 12:21 Laboratory Results Interpreted: 11/21/20 11/21/20 12:21 12:21 Hgb 11.7 L Hct 35.0 L RDW 14.1 H Ur Leukocyte Esterase LARGE H Critical Laboratory Results Reviewed: No Critical Results - Radiology Results Critical Radiology Results Reviewed: No Critical Results - EKG Interpretation by Me EKG shows normal: Sinus rhythm Rate: Normal Rhythm: NSR When compared to previous EKG there are: Previous EKG unavailable Discharge - Discharge Clinical Impression: Cough, Suspected COVID-19 virus infection, Shortness of breath Condition: Stable Disposition: HOME, SELF-CARE Instructions: COVID-19 Guidance for Persons Under Investigation Additional Instructions: Your work-up today is reassuring. Your chest x-ray was negative. Your Covid test is pending. You must self isolate until you are called with a negative result. Return to the ER immediately for any worsening symptoms or shortness of breath. Please follow-up with your family doctor. He may want to do more lung function testing. Referrals: IVONNE CORBIN CALENDER TENDER [Primary Care Provider] - Follow up in 3-5 days
[2020-11-21 14:22] LABS: APPEARANCE,URINE SLIGHTLY-CLOUDY; BILIRUBIN,URINE NEGATIVE (NEGATIVE); COLOR,URINE YELLOW; GLUCOSE, URINE NEGATIVE (NEGATIVE); KETONES,URINE NEGATIVE (NEGATIVE); LEUKOCYTE ESTERASE,URINE LARGE (NEGATIVE); NITRITE,URINE NEGATIVE (NEGATIVE); PROTEIN,URINE NEGATIVE (NEGATIVE); URINE SPECIFIC GRAVITY 1.024; UROBILINOGEN,URINE NEGATIVE mg/dL (<2.0)
[2020-11-21] MEDS ORDERED: DEXAMETHASONE SOD PHOS INJ 10 MG/1 ML VIAL IM ONE (15:17)
[2020-11-21] MEDS ORDERED: KETOROLAC TROMETHAMINE 60 MG/2 ML SDV IM ONE (15:30)
[2020-11-21 16:10] LABS: A TYPE INFLUENZA AG NEGATIVE (NEGATIVE); B INFLUENZA AG NEGATIVE (NEGATIVE)
--- NOTE | 2020-11-21 17:31 | EKG REPORT ---
SEVERITY:- ABNORMAL ECG - SINUS RHYTHM NONSPECIFIC ST-T CHANGES ANTERIOR PRECORDIAL LEADS : Confirmed by: Emerson Black MD 21-Nov-2020 17:31:03
== END 2020-11-21 18:53 | disposition home or self-care (01) ==
LOC: ER 11:29
DX: J44.1 Chronic obstructive pulmonary disease with (acute) exacerbation (principal); R05 Cough; R06.02 Shortness of breath; Z20.828 Contact with and (suspected) exposure to other viral communicable diseases; I10 Essential (primary) hypertension; Z90.49 Acquired absence of other specified parts of digestive tract; Z90.710 Acquired absence of both cervix and uterus
CPT/HCPCS: 93005; 99285; 96372; 36415; 87070; 87086; 87880; 85025; 87635; 80053; 81001; 84484; 87804; 71045; 93010; J1885; J1100; C9803